=== PATIENT | female | born 1955 | race Caucasian/White ===

== ENCOUNTER 2019-08-09 00:29 | Outpatient (CLI) | payer OTHER, SELFPAY ==
[2019-08-09 18:10] LABS: SARS-CoV-2 RNA PCR Negative
== END 2019-08-09 00:30 | disposition home or self-care (01) ==
LOC: ANHCOVIDDT 00:29
PROVIDERS: PCP Family Medicine; Visit Provider Podiatrist Foot & Ankle Surgery
DX: Z01.812 Encounter for preprocedural laboratory examination (principal); Z20.828 Contact with and (suspected) exposure to other viral communicable diseases
CPT/HCPCS: 87635; C9803; U0003

== ENCOUNTER 2019-08-11 03:43 | Day surgery (SDC) | payer OTHER, SELFPAY ==
[2019-07-31 10:30] VITALS: BMI 22.8
--- NOTE | 2019-08-10 12:17 | WPDANESEPP ---
Anes - Eval Pre Procedure Procedure: Operation Date: 08/11/19 07:30 Proposed Procedures p Excision Willett's Neuroma Left Foot - Terrell Isaac JR, MD Date/Time: 08/10/19 12:17 Pre Op Diagnosis: Willett's Neuroma Left Foot Patient Data Age: 63 Gender: F Height: 1.73 m Weight: 68.3 kg Allergies Allergy/AdvReac Type Severity Reaction Status Date / Time HAZELNUTS Allergy Intermediate ITCHY Uncoded 07/31/19 10:30 THROAT Home Medications Medication Instructions Recorded Confirmed Type loratadine 10 mg tablet 10 mg PO DAILY #90 tablet 05/29/19 07/31/19 Rx amitriptyline 25 mg PO HS 07/31/19 07/31/19 History fluticasone propionate [Flonase 1 mcg INTRANASAL DAILY 07/31/19 07/31/19 History Allergy Relief] montelukast [Singulair] 10 mg PO DAILY 07/31/19 07/31/19 History pantoprazole [Protonix] 40 mg PO HS 07/31/19 07/31/19 History sumatriptan succinate [Imitrex] 100 mg PO DAILY 07/31/19 07/31/19 History Patient hx anesthesia problems: none Family hx anesthesia problems: none PMFSH Past Medical History Medical History (Updated 08/10/19 @ 12:19 by Pepe Mckeon CRNA) Alcohol use 1-2 drinks/week GERD (gastroesophageal reflux disease) Migraine Mitral valve prolapse Osteopenia Surgical History Surgical History History of hip replacement Family History Family History Mother Hypertension Family history of chronic obstructive pulmonary disease Family history of coronary artery disease Father Hypertension Family history of coronary artery disease Social History Social History Smoking status: Never smoker Alcohol intake: current Exam Day of Procedure 08/10/19 12:17
[2019-08-11] VITALS (8 sets, daily range): BP systolic 126–170; BP diastolic 54–80; PULSE 54–72; RESP 15–22; TEMP 36.9; O2SAT 92–100
--- NOTE | 2019-08-11 06:37 | WPDANESEPPF ---
Anes - Initial Pre Proc Eval Procedure: Operation Date: 08/11/19 07:30 Proposed Procedures p Excision Willett's Neuroma Left Foot - Terrell Isaac JR, MD Date/Time: 08/11/19 06:37 Surgeon: Terrell Isaac JR, MD Pre Op Diagnosis: Willett's Neuroma Left Foot Patient Data Age: 63 Gender: F Height: 1.73 m Weight: 68.1 kg Allergies Allergy/AdvReac Type Severity Reaction Status Date / Time HAZELNUTS Allergy Intermediate ITCHY Uncoded 07/31/19 10:30 THROAT Home Medications Medication Instructions Recorded Confirmed Type loratadine 10 mg tablet 10 mg PO DAILY #90 tablet 05/29/19 07/31/19 Rx amitriptyline 25 mg PO HS 07/31/19 07/31/19 History fluticasone propionate [Flonase 1 mcg INTRANASAL DAILY 07/31/19 07/31/19 History Allergy Relief] montelukast [Singulair] 10 mg PO DAILY 07/31/19 07/31/19 History pantoprazole [Protonix] 40 mg PO HS 07/31/19 07/31/19 History sumatriptan succinate [Imitrex] 100 mg PO DAILY 07/31/19 07/31/19 History Patient hx anesthesia problems: none Family hx anesthesia problems: none PMFSH Past Medical History Medical History (Updated 08/10/19 @ 12:19 by Pepe Mckeon CRNA) Alcohol use 1-2 drinks/week GERD (gastroesophageal reflux disease) Migraine Mitral valve prolapse Osteopenia Surgical History Surgical History History of hip replacement Family History Family History Mother Hypertension Family history of chronic obstructive pulmonary disease Family history of coronary artery disease Father Hypertension Family history of coronary artery disease Social History Social History Smoking status: Never smoker Alcohol intake: current Anes - Eval Final PreProcedure Day of Procedure 08/11/19 06:37 Patient weight: normal Heart: regular rate and rhythm Lungs: clear to auscultation and normal air movement Airway: Mallampati scale class 1 Neurological: alert and oriented Last oral intake: >/= 8 hours ASA classification: II Emergent: no Anesthetic plan: proceed Anesthesia type and monitoring: general GIVS and standard monitoring Informed Consent: The patient's anesthetic plan and its attendant risks and benefits were discussed with the patient/family/POA. Questions were solicited and answers provided to the satisfaction of the patient/family/POA.
[2019-08-11] MEDS: LACTATED RINGERS 1,000 ML 30 ML IV CONT ×2 (06:50→08:38)
--- NOTE | 2019-08-11 07:14 | WPDHPUPDATE1 ---
History and Physical Update Update Date/Time: 08/11/19 07:14 History and Physical has been reviewed, including an updated exam of the patient. There are NO changes in the patient's condition. Risks, benefits, and alternatives have been discussed and questions answered. Patient agrees to proceed with procedure.
[2019-08-11] MEDS: ceFAZolin 2 GM/D5W 50 ML 2 GM/50 ML BAG IVPB (07:22)
[2019-08-11] MEDS: LIDOCAINE HCL 2% LOCAL INJ 20 ML VIAL 10 ML INFILTRATE (07:47)
--- NOTE | 2019-08-11 08:13 | PM.OP ---
Procedure Note - Brief Procedure Note - Brief Date of procedure: 08/11/19 Pre-op diagnosis: Willett's Neuroma Left Foot Post-op diagnosis: same Procedure performed: Excision of Mortons Neuroma left foot Anesthesia: MAC and local Surgeon: Terrell Isaac JR, DPM Estimated blood loss (mL): 1 Complications: No immediate complications Condition: stable Disposition: same day
[2019-08-11] MEDS: KETOROLAC 30 MG/ML VIAL (*BKC) IV PUSH (08:34)
[2019-08-11] MEDS: HYDROMORPHONE HCL 1 MG/ML INJ 0.5 MG IV PUSH ×3 (08:36→08:42)
--- NOTE | 2019-08-11 15:25 | SUR.PHASEII ---
0855- DR. SINGER AND SHOSHANA HEATH RN IN OP RECOVERY ROOM TO ADMINISTER NERVE BLOCK. PATIENT TOLERATED WELL. IMPROVEMENT WITHIN MINUTES IN PAIN LEVEL
--- NOTE | 2019-08-11 15:30 | SUR.PHASEII ---
0915- PATIENT EXPRESSING THAT SHE DOES NOT HAVE ANY MEMORY OF COMING TO THE HOSPITAL FOR SURGERY THIS MORNING. OTHERWISE A&O X3. NO NEUROLOGICAL DEFICITS. DR. CHAVARRIA NOTIFIED. STATES DUE TO VERSED ADMINISTRATION FROM CRUDE TESTER. NO NEW ORDERS.
--- NOTE | 2019-08-11 16:48 | OP_ITS ---
DATE OF PROCEDURE: 08/11/2019 PREOPERATIVE DIAGNOSIS: Painful Willett's neuroma, left foot. POSTOPERATIVE DIAGNOSIS: Painful Willett's neuroma, left foot. PROCEDURES: Excision of Willett's neuroma, left foot. PATHOLOGY: Willett's neuroma sent for gross and histopathology. ANESTHESIA: MAC with local. HEMOSTASIS: Pneumatic ankle tourniquet at 250 mmHg. ESTIMATED BLOOD LOSS: Minimal. MATERIALS USED: 4-0 Vicryl and 4-0 Monocryl. INJECTABLES: 20 cc of 1:1 mixture of 2% lidocaine plain and 0.5% Marcaine plain injected preoperatively. COMPLICATIONS: None. PROCEDURE IN DETAIL: Under mild sedation, the patient was brought to the operating room and placed on the operating table in the supine position. Pneumatic ankle tourniquet was placed about the patient's left ankle. Following IV sedation, local anesthesia was obtained about the left foot utilizing 20 cc of 2% lidocaine plain and 0.5% Marcaine plain. The foot was then scrubbed, prepped, and draped in the usual aseptic manner. An Esmarch bandage was then used to examine the patient's left foot and pneumatic ankle tourniquet was inflated. Surgery began in the following manner. Attention was directed to the dorsal aspect of the third interspace of the left foot where a 3 cm linear longitudinal incision was made beginning distally at the webspace of the intermetatarsal area and extending proximally. Incision was deepened through the subcutaneous tissues using sharp and blunt dissection. All vital neurovascular structures and bleeders were cauterized and ligated as necessary. At this time, the dissection was continued deep down to the third interspace using blunt dissection down to the white neural mass of the common plantar nerve, which was initially identified beneath the intermetatarsal ligament. After initial identification, the hypertrophied soft tissue neural mass was followed distally to the point of bifurcation into the proper plantar digital nerves. The proper plantar digital nerves were tracked as far distal as possible and severed. The neural mass was then dissected as far proximal as possible, from its soft tissue surroundings and severed. At this time, the entire soft neural mass was resected and passed from the operative field in toto. The wound was inspected for any remaining hypertrophied neural tissue and none was found. The wound site was then flushed with copious amounts of sterile saline. The neural mass was noted to be approximately 4 cm in length and approximately 4 mm in width. The subcutaneous tissues were reapproximated and coapted utilizing 4-0 Vicryl. The skin was reapproximated and coapted utilizing 4-0 Monocryl and a running subcuticular suture fashion technique. Upon completion of the procedure, the incision was dressed with Steri-Strips, Adaptic, 4x4s, Kerlix, and Coban. The pneumatic ankle tourniquet was then deflated and prompt hyperemic response was noted to all digits of the left foot. A CAM walker boot was then applied. The patient did very well with the procedure and anesthesia. She was transferred to the recovery room. Vital signs stable and vascular status intact to all toes of the left foot. Following period of postoperative monitoring, the patient was discharged home on the following written and oral postoperative instructions: 1. Keep the dressing clean, dry, and intact. 2. Avoid excessive ambulation. 3. Ice and elevate the left foot when at rest. 4. Wear CAM walker boot at all times with ambulating. 5. Contact Dr. Isaac for all postop care and if any problems should arise. 6. Prescriptions were written for Percocet 5/325 dispensed 40 to be taken one p.o. q.4-6 hours as needed for severe pain. Larry I MT: Gail
== END 2019-08-11 09:55 | disposition home or self-care (01) ==
PROVIDERS: PCP Family Medicine; Visit Provider Podiatrist Foot & Ankle Surgery
PROC: (CPT 28080; principal; 2019-08-11 07:30)
DX: G57.62 Lesion of plantar nerve, left lower limb (principal); K21.9 Gastro-esophageal reflux disease without esophagitis; I34.1 Nonrheumatic mitral (valve) prolapse
CPT/HCPCS: 28080; 88304; J0690; J1170; J1885; J2250; J2405; J2704; J3010; J7120

== ENCOUNTER 2019-11-29 10:16 | Outpatient (CLI) | payer MEDICARE, OTHER, SELFPAY ==
--- NOTE | ~2019-11-29 | MM_ITS ---
EXAMINATION: MM screening [facility] BI w steven HISTORY: Screening TECHNIQUE: Craniocaudal and mediolateral oblique 3-D tomosynthesis images were obtained and synthetic 2-D images were generated. CAD analysis was submitted and interpreted. COMPARISON: Comparison to multiple prior studies sequentially, with oldest reviewed study dated 10/13. BREAST PARENCHYMAL COMPOSITION: The breasts are heterogeneously dense, which may obscure small masses . FINDINGS: There is developing asymmetry in the lower inner quadrant of the left breast. The right marybeth ast is stable without evidence for malignancy. IMPRESSION: 1. Developing left breast asymmetry, lower inner quadrant. 2. Additional mammographic views and possible breast ultrasound are recommended. BI-RADS Category 0: Incomplete: Needs additional imaging evaluation. Reviewed, dictated and finalized at location A. IMPRESSION: 1. Developing left breast asymmetry, lower inner quadrant. 2. Additional mammographic views and possible breast ultrasound are recommended . BI-RADS Category 0: Incomplete: Needs additional imaging evaluation.
== END 2019-11-29 10:17 | disposition home or self-care (01) ==
PROVIDERS: PCP Family Medicine; Visit Provider Family Medicine
DX: Z12.31 Encounter for screening mammogram for malignant neoplasm of breast (principal); R92.8 Other abnormal and inconclusive findings on diagnostic imaging of breast
CPT/HCPCS: 77063; 77067

== ENCOUNTER 2019-12-07 13:41 | Outpatient (CLI) | payer MEDICARE, OTHER, SELFPAY ==
--- NOTE | ~2019-12-07 | MMUS_ITS ---
EXAMINATION: MM diagnostic mammo unilat LT, US breast LT complete HISTORY: Follow-up left breast asymmetry TECHNIQUE: Additional 3-D tomosynthesis images of the left breast were performed and synthetic 2-D im ages were generated. CAD analysis was submitted and interpreted. High resolution left breast ultrasou nd was performed. COMPARISON: Comparison to multiple prior studies sequentially, with oldest reviewed study dated 10/15. BREAST PARENCHYMAL COMPOSITION: The breasts are heterogenously dense, which may obscure small masses FINDINGS: MAMMOGRAPHIC FINDINGS: There are no suspicious masses, calcifications or architectural distortion in the left breast. ULTRASOUND: Complete left breast ultrasound is unremarkable without focal solid or cystic mass. IMPRESSION: 1. No evidence for malignancy in the left breast. 2. Routine yearly screening mammogram and regular clinical breast examination are recommended. BI-RADS Category 1: Negative Reviewed, dictated and finalized at location A. IMPRESSION: 1. No evidence for malignancy in the left breast. 2. Routine yearly screening mammogram and regular clinical breast examination a re recommended. BI-RADS Category 1: Negative
== END 2019-12-07 13:42 | disposition home or self-care (01) ==
PROVIDERS: PCP Family Medicine; Visit Provider Family Medicine
DX: R92.8 Other abnormal and inconclusive findings on diagnostic imaging of breast (principal)
CPT/HCPCS: 76641; 77065

== ENCOUNTER 2020-03-12 06:55 | Outpatient (NON) | payer MEDICARE, OTHER, SELFPAY ==
[2020-03-12 22:34] LABS: SARS-CoV-2 RNA PCR Positive
== END 2020-03-12 06:56 ==
PROVIDERS: Nurse Practitioner Family; PCP Family Medicine; Visit Provider Family Medicine
DX: R05 Cough (principal); U07.1 COVID-19
CPT/HCPCS: C9803; U0003; U0005

== ENCOUNTER 2020-09-30 10:43 | Outpatient (CLI) | payer MEDICARE, OTHER, SELFPAY | END 2020-09-30 10:44 | disposition home or self-care (01) | LOC: ANHAUDASC 10:43 | PROVIDERS: PCP Family Medicine; Visit Provider Family Medicine | DX: H90.3 Sensorineural hearing loss, bilateral (principal) | CPT/HCPCS: 92557; 92567 ==

== ENCOUNTER 2020-12-09 07:54 | Outpatient (CLI) | payer SELFPAY | END 2020-12-09 07:55 | disposition home or self-care (01) | PROVIDERS: PCP Family Medicine; Visit Provider Family Medicine | DX: Z46.1 Encounter for fitting and adjustment of hearing aid (principal) | CPT/HCPCS: 99199 ==

== ENCOUNTER 2021-01-08 13:00 | Outpatient (RCR) | payer MEDICARE, OTHER, SELFPAY | END 2021-03-19 23:59 | disposition home or self-care (01) | LOC: ANHAUDASC 13:00 | PROVIDERS: PCP Family Medicine; Visit Provider Family Medicine | DX: Z46.1 Encounter for fitting and adjustment of hearing aid (principal) | CPT/HCPCS: 99199; V5261 ==

== ENCOUNTER 2021-01-09 07:38 | Outpatient (CLI) | payer MEDICARE, OTHER, SELFPAY ==
--- NOTE | ~2021-01-09 | DEXA_ITS ---
Bone Density Report Name: Sally Seymour Age: 65 Sex: Female Ethnicity: White Date of : 1955 Indication: osteopenia; monitoring treatment; height loss; postmenopausal Referring Provider: Gorge Siddiqui Study: Bone densitometry was performed. Exam Date: January 09, 2021 Accession number: [id number] Bone Density: Region BMD T-score Z-score Classification AP Spine (L1-L4) 0.920 -1.2 0.7 Osteopenia Femoral Neck (Right) 0.622 -2.0 -0.5 Osteopenia Total Hip (Right) 0.772 -1.4 -0.1 Osteopenia World Health Organization criteria for BMD impression classify patients as: Normal (T-score at or above -1.0), Osteopenia (T-score between -1.0 and -2.5), or Osteoporosis (T-score at or below -2.5). 10-year Fracture Risk: FRAX not reported because: Treated for osteoporosis Previous Exams: Region Exam Age BMD T-score BMD Change BMD Change Date g/cm2 vs Baseline vs Previous AP Spine(L1-L4) 01/09/2021 65 0.920 -1.2 -0.055(-5.6%)# -0.006(-0.6%) 11/10/2018 63 0.925 -1.1 -0.049(-5.1%)# -0.034(-3.5%)* 11/09/2016 61 0.959 -0.8 -0.016(-1.6%)# -0.006(-0.6%)# 10/15/2014 59 0.964 -0.8 -0.010(-1.0%)# -0.010(-1.0%)# 10/12/2012 57 0.975 -0.7 Total Hip(Right) 01/09/2021 65 0.772 -1.4 -0.064(-7.7%)# -0.021(-2.6%) 11/10/2018 63 0.792 -1.2 -0.044(-5.2%)# -0.031(-3.8%)* 11/09/2016 61 0.823 -1.0 -0.012(-1.5%)# -0.011(-1.4%) 10/15/2014 59 0.835 -0.9 -0.001(-0.1%)# -0.001(-0.1%)# 10/12/2012 57 0.836 -0.9 *Denotes significance at 95% confidence level, LSC for AP Spine = 0.022 g/cm2, LSC for Total Hip = 0.027 g/cm2 Clinical Information Provided by Patient: Is being treated for osteoporosis Has used the following medications: Fosamax (i.e. alendronate), Vitamin D, Calcium Patient maximum height was 69 Menopause Age: 52 Drinks caffeinated beverages Onset of menses at age 12 Number of children 0 Impression: The patient has low bone mass, based on the Right Femoral Neck T-score. No significant bone loss was observed. Discussion: PATIENT UNDER TREATMENT WITH NO SIGNIFICANT BMD LOSS SINCE LAST EXAM. In an untreated patient, BMD typically declines with age. A lack of decline or gain is usually a sign that treatment is efficacious and fracture risk is reduced. It is important to ask patients whether they are taking their medications and to encourage continued and appropriate compliance with their osteoporosis therapies to reduce fracture risk. It is also important to review their risk factors and
--- NOTE | ~2021-01-09 | MM_ITS ---
EXAMINATION: MM screening [facility] BI w steven HISTORY: Screening mammogram TECHNIQUE: Craniocaudal and mediolateral oblique 3-D tomosynthesis images were obtained and synthetic 2-D images were generated. CAD analysis was submitted and interpreted. COMPARISON: 12/07/2019, 11/29/2019, 11/10/2018 BREAST PARENCHYMAL COMPOSITION: The breasts are extremely dense, which lowers the sensitivity of mamm ography. FINDINGS: There is no evidence of suspicious mass, calcification, or architectural distortion to sugg est malignancy in either breast. There has been no suspicious interval change. IMPRESSION: 1. No mammographic evidence of malignancy. 2. Recommend routine screening mammography in one year. BI-RADS Category 1: Negative Reviewed, dictated and finalized at location A. [employer]
== END 2021-01-09 07:39 | disposition home or self-care (01) ==
LOC: ANHIMG 07:40
PROVIDERS: PCP Family Medicine; Visit Provider Family Medicine
DX: Z12.31 Encounter for screening mammogram for malignant neoplasm of breast (principal); Z78.0 Asymptomatic menopausal state
CPT/HCPCS: 77063; 77067; 77080

== ENCOUNTER 2021-01-30 09:10 | Emergency (ER) | payer MEDICARE, OTHER, SELFPAY ==
[2021-01-30 09:19] VITALS: PULSE 63; RESP 15; O2SAT 99
[2021-01-30 09:30] VITALS: BP 174/76; PULSE 64; PULSE 68; RESP 14; RESP 20; TEMP 37.1; O2SAT 99
[2021-01-30 09:31] VITALS: BP 182/90; PULSE 62; RESP 20; O2SAT 98
--- NOTE | 2021-01-30 09:48 | ED.GENADULT ---
HPI - General Adult General Chief complaint: GI Bleed Stated complaint: Rectal bleeding. Time Seen by Provider: 01/30/21 09:21 Source: patient Mode of arrival: ambulatory Limitations: no limitations History of Present Illness HPI narrative: Patient is 65-year-old female with chief complaint of bright red rectal bleeding that she noticed in the toilet and when wiping after having a bowel movement this morning. Patient states that she has had these episodes in the past after straining while having a bowel movement but she has been taking Metamucil and she did not feel as if she was straining that much on this morning. Patient states that she noticed it when she was wiping and even saw a few very small blood clots. She denies any pain to her rectum. She denies any weakness, shortness of breath, chest pain, abdominal pain, nausea, vomiting, fever, chills, diarrhea. She reports that she believes she has had hemorrhoids in the past but is not sure she has been currently. Patient reports that she takes Metamucil daily. Patient reports that she has had multiple urination since the event and has wiped and not noted any blood. Patient reports that she has not had a colonoscopy for over 5 years. She reports at the time of her last colonoscopy she did not have any abnormal findings. Patient denies any complaints or feelings at this time. Related Data Allergies Allergy/AdvReac Type Severity Reaction Status Date / Time HAZELNUTS Allergy Intermediate ITCHY Uncoded 12/18/20 13:46 THROAT Review of Systems Review of Systems: CONSTITUTIONAL: Denies fever, chills, or sweats. EYES: Denies visual changes, redness, or discharge. ENT: Denies rhinorrhea, congestion, sore throat, or otalgia. CARDIOVASCULAR: Denies chest pain, palpitations, or edema. RESPIRATORY: Denies cough or dyspnea. GASTROINTESTINAL: Reports resolved rectal bleeding denies abdominal pain, nausea, vomiting, or diarrhea. GENITOURINARY: Denies dysuria or hematuria. SKIN: Denies rash or itching. MUSCULOSKELETAL: Denies back pain, joint pain, or myalgia. NEUROLOGIC: Denies headache, numbness, dizziness, or weakness. PSYCHIATRIC: Denies anxiety or depression. [facility] Past Medical History Medical History Alcohol use 1-2 drinks/week GERD (gastroesophageal reflux disease) Migraine Mitral valve prolapse Osteopenia Plantar fasciitis Weight gain Surgical History Surgical History History of foot surgery Willett's neuroma removal, Isaac History of hip replacement Family History Family History Mother Hypertension Family history of chronic obstructive pulmonary disease Family history of coronary artery disease Father Hypertension Family history of coronary artery disease Social History Social History Smoking status: Never smoker Second hand tobacco smoke exposure: No Alcohol intake: current Drinks per week: 7 Substance use: never Substance use type: does not use Gender identity (if verbalized by the patient): Female Sexual Orientation (if Verbalized by the Patient): Straight or Heterosexual Exam Narrative: GENERAL: Well-appearing, well-nourished, and in no acute distress. HEAD: Normocephalic, atraumatic. EYES: PERRLA and EOMI. CHEST: Clear to auscultation. No respiratory distress. No wheezes rales or rhonchi HEART: Regular rate and rhythm. No murmur heard. Normal peripheral pulses. ABDOMEN: Soft, nontender, nondistended, normal active bowel sounds. RECTAL: Small tear w/irritation at 10 o'clock. No hemorrhoids. No gross blood noted. Hemoccult negative. EXTREMITIES: Normal range of motion. No edema. SKIN: Warm, dry, no rash. NEURO: No focal deficits. Alert and oriented x3. PSYCH: Normal mood and affect. Course Vital Signs Kasia
[2021-01-30 09:52] VITALS: PULSE 57; RESP 20; O2SAT 97
[2021-01-30 10:00] VITALS: PULSE 57; RESP 14; O2SAT 98
[2021-01-30 10:01] VITALS: BP 139/68; PULSE 58; RESP 13; O2SAT 98
== END 2021-01-30 10:35 | disposition home or self-care (01) ==
PROVIDERS: Emergency Provider Emergency Medicine; PCP Family Medicine
DX: K62.5 Hemorrhage of anus and rectum (principal)
CPT/HCPCS: 99281

== ENCOUNTER 2021-01-31 12:20 | Outpatient (CLI) | payer MEDICARE, OTHER, SELFPAY ==
[2021-01-31 13:15] LABS: Basophils Absolute Auto 0.1 K/mm3 (0.0-0.1); Basophils Percent Auto 0.7 % (0.2-1.2); Eosinophils Absolute Auto 0.1 K/mm3 (0-0.3); Eosinophils Percent Auto 1.5 % (0-4.4); Hematocrit 37.7 % (37.0-47.0); Hemoglobin 12.6 g/dL (12.0-15.0); Immature Granulocyte Absolute 0.02 K/mm3 (0.00-0.031); Immature Granulocyte Percent A 0.3 % (0-0.5); Lymphocytes Percent Auto 19.3 % (18.3-44.2); Mean Corpuscular HGB Conc 33.4 g/dl (32-36); Mean Corpuscular Hemoglobin 32.7 pg (26-34); Mean Corpuscular Volume 97.9 fl (80-100); Mean Platelet Volume 9.6 fl (7.4-10.4); Monocytes Absolute Auto 0.5 K/mm3 (0.1-0.6); Monocytes Percent Auto 7.9 % (2.6-8.5); Neutrophils Absolute Auto 4.7 K/mm3 (1.3-6.7); Neutrophils Percent Auto 70.3 % (45.5-73.1); Platelet Count Result 227 k/mm3 (150-375); Red Blood Count 3.85 M/mm3 (4.2-5.4); Red Cell Distribution Width 13.2 % (11.5-14.5); White Blood Count 6.7 K/mm3 (4.5-10.0)
== END 2021-01-31 12:21 | disposition home or self-care (01) ==
LOC: ANHLAB 12:24
PROVIDERS: PCP Family Medicine; Visit Provider Family Medicine
DX: K62.5 Hemorrhage of anus and rectum (principal)
CPT/HCPCS: 36415; 85025

== ENCOUNTER 2021-02-26 01:21 | Day surgery (SDC) | payer MEDICARE, OTHER, SELFPAY ==
[2021-02-06 14:30] VITALS: BMI 23.6
--- NOTE | ~2021-02-26 | XR_ITS ---
XR abdomen obstructive series DATE: 02/26/2021 13:19 INDICATION: Perforation TECHNIQUE: Portable supine and upright AP views COMPARISON: None FINDINGS: Status post left total hip arthroplasty. Nonspecific bowel gas pattern. There is no evidence of intraperitoneal free air. The psoas shadows are intact. No visceromegaly is evident. Included lower lung zones are clear. Normal heart size. No pleural effusion. IMPRESSION: Nonspecific abdomen; no evidence of pneumoperitoneum Reviewed, dictated and finalized at [facility]. Reviewed, dictated and finalized at location A. FORM ARCHITECT
[2021-02-26 11:16] VITALS: BP 147/63; PULSE 58; RESP 18; TEMP 36.4; O2SAT 100
--- NOTE | 2021-02-26 11:32 | WPDANESEPPF ---
Anes - Initial Pre Proc Eval Procedure: Operation Date: 02/26/21 12:30 Proposed Procedures p Colonoscopy - Francois Orozco MD Date/Time: 02/26/21 11:32 Surgeon: Francois Orozco MD Pre Op Diagnosis: Rectal bleeding Patient Data Age: 65 Gender: F Height: 1.73 m Weight: 65.4 kg Last Vital Signs Temp 97.6 F 02/26/21 11:16 Pulse 58 L 02/26/21 11:16 Resp 18 02/26/21 11:16 BP 147/63 H 02/26/21 11:16 Pulse Ox 100 02/26/21 11:16 Allergies Allergy/AdvReac Type Severity Reaction Status Date / Time HAZELNUTS Allergy Intermediate ITCHY Uncoded 02/26/21 11:13 THROAT Home Medications Medication Instructions Recorded Confirmed Type amitriptyline 25 mg tablet 25 mg PO HS #90 tablet 11/11/20 02/06/21 Rx baclofen 5 mg tablet 5 mg PO QHS #30 tablet 11/11/20 02/06/21 Rx loratadine 10 mg tablet 10 mg PO DAILY #90 tablet 11/11/20 02/06/21 Rx montelukast 10 mg tablet 10 mg PO DAILY #90 tablet 11/11/20 02/06/21 Rx pantoprazole 40 mg tablet,delayed 40 mg PO HS #90 tablet 11/11/20 02/06/21 Rx release scopolamine base 1 mg over 3 days 1 patch TRANSDERMAL Q3D PRN #5 ea 11/11/20 02/06/21 Rx transdermal patch sumatriptan succinate 100 mg tablet 100 mg PO DAILY #30 tablet 11/11/20 02/06/21 Rx conjugated estrogens 0.625 mg/gram 0.625 mg VAGINAL 2XW #30 g 11/13/20 02/06/21 Rx vaginal cream fluticasone propionate 50 1 spray INTRANASAL DAILY #16 g 11/13/20 02/06/21 Rx mcg/actuation nasal spray,suspension Patient hx anesthesia problems: none Family hx anesthesia problems: none Results Review: All pre-operative results and documents have been reviewed as part of the pre-operative evaluation. [facility] Past Medical History Medical History Alcohol use 1-2 drinks/week GERD (gastroesophageal reflux disease) Migraine Mitral valve prolapse Osteopenia Plantar fasciitis Weight gain Surgical History Surgical History History of foot surgery Willett's neuroma removal, Isaac History of hip replacement Family History Family History Mother Hypertension Family history of chronic obstructive pulmonary disease Family history of coronary artery disease Father Hypertension Family history of coronary artery disease Social History Social History Smoking status: Former smoker Second hand tobacco smoke exposure: No Alcohol intake: current Drinks per week: 12 Substance use: never Substance use type: does not use Living arrangements: with family Gender identity (if verbalized by the patient): Female Sexual Orientation (if Verbalized by the Patient): Straight or Heterosexual Spiritual care concerns: No Anes - Eval Final PreProcedure Day of Procedure 02/26/21 11:32 Patient weight: normal Heart: regular rate and rhythm Lungs: clear to auscultation Airway: Mallampati scale class II Neurological: alert and oriented Last oral intake: >/= 8 hours ASA classification: II Emergent: no Anesthetic plan: proceed Anesthesia type and monitoring: general GIVS and standard monitoring Results Review: All pre-operative results and documents have been reviewed as part of the pre-operative evaluation. Informed Consent: The patient's anesthetic plan and its attendant risks and benefits were discussed with the patient/family/POA. Questions were solicited and answers provided to the satisfaction of the patient/family/POA.
[2021-02-26] MEDS: LACTATED RINGERS 1,000 ML 150 ML IV CONT (11:33)
--- NOTE | 2021-02-26 11:53 | PM.HPGS ---
History of Present Illness History of Present Illness Consent: Risks, benefits, and alternatives have been discussed and questions answered. Patient agrees to proceed with procedure. Chief complaint: Rectal bleeding Narrative: Sally Seymour is a 65 year old female Referred for investigation of rectal bleeding for the past few months she has seen red blood her stools from time to time. She has not been necessarily straining or constipated lately. She denies rectal pain or abdominal pain. Review of Systems Review of Systems: All systems reviewed & are unremarkable except as noted in HPI and below PMFSH Past Medical History Medical History Alcohol use 1-2 drinks/week GERD (gastroesophageal reflux disease) Migraine Mitral valve prolapse Osteopenia Plantar fasciitis Weight gain Surgical History Surgical History History of foot surgery Willett's neuroma removal, 2019, Isaac History of hip replacement Family History Family History Mother Hypertension Family history of chronic obstructive pulmonary disease Family history of coronary artery disease Father Hypertension Family history of coronary artery disease Social History Social History Smoking status: Former smoker Second hand tobacco smoke exposure: No Alcohol intake: current Drinks per week: 12 Substance use: never Substance use type: does not use Living arrangements: with family Gender identity (if verbalized by the patient): Female Sexual Orientation (if Verbalized by the Patient): Straight or Heterosexual Spiritual care concerns: No Meds Home Medications and Allergies Home Medications Medication Instructions Recorded Confirmed Type amitriptyline 25 mg tablet 25 mg PO HS #90 tablet 11/11/20 02/06/21 Rx baclofen 5 mg tablet 5 mg PO QHS #30 tablet 11/11/20 02/06/21 Rx loratadine 10 mg tablet 10 mg PO DAILY #90 tablet 11/11/20 02/06/21 Rx montelukast 10 mg tablet 10 mg PO DAILY #90 tablet 11/11/20 02/06/21 Rx pantoprazole 40 mg tablet,delayed 40 mg PO HS #90 tablet 11/11/20 02/06/21 Rx release scopolamine base 1 mg over 3 days 1 patch TRANSDERMAL Q3D PRN #5 ea 11/11/20 02/06/21 Rx transdermal patch sumatriptan succinate 100 mg tablet 100 mg PO DAILY #30 tablet 11/11/20 02/06/21 Rx conjugated estrogens 0.625 mg/gram 0.625 mg VAGINAL 2XW #30 g 11/13/20 02/06/21 Rx vaginal cream fluticasone propionate 50 1 spray INTRANASAL DAILY #16 g 11/13/20 02/06/21 Rx mcg/actuation nasal spray,suspension Allergies Allergy/AdvReac Type Severity Reaction Status Date / Time HAZELNUTS Allergy Intermediate ITCHY Uncoded 02/26/21 11:13 THROAT Vital Signs Vital Signs - 24 hr 02/26/21 11:16 Temperature 36.4 C Pulse Rate 58 L Respiratory Rate 18 Blood Pressure 147/63 H Pulse Oximetry 100 Exam Resp: Auscultation: clear to auscultation bilaterally Cardio: Rate: regular rate Rhythm: regular rhythm GI: GI Palp: Yes Soft to palpation and No Tenderness to palpation present (GI) Assessment and Plan Assessment and plan (1) Blood in stool: Code(s): K92.1 - Melena Status: Acute Assessment and Plan: Colonoscopy with possible biopsy or polypectomy or cautery or injection of substances.
[2021-02-26 12:22] VITALS: BP 141/74; PULSE 59; RESP 18; O2SAT 99
[2021-02-26 12:32] VITALS: BP 149/76; PULSE 50; RESP 15; O2SAT 100
[2021-02-26 12:42] VITALS: BP 150/75; PULSE 51; RESP 16; O2SAT 100
[2021-02-26] MEDS: ONDANSETRON HCL ODT 4 MG TABLET PO (13:09)
[2021-02-26 13:10] VITALS: BP 150/72; PULSE 58; RESP 24; O2SAT 97
[2021-02-26 13:20] VITALS: BP 135/67; PULSE 56; RESP 21; O2SAT 100
--- NOTE | 2021-02-26 13:49 | SUR.PHASEII ---
DR MATA NOTIFIED OF ABD OBSTRUCTIVE SERIES, NEW ORDERS FOR PT TO GO HOME EAT LIGHT MEALS TODAY
== END 2021-02-26 13:54 | disposition home or self-care (01) ==
PROVIDERS: PCP Family Medicine; Visit Provider Internal Medicine Gastroenterology
PROC: 0DJD8ZZ Inspection of Lower Intestinal Tract, Via Natural or Artificial Opening Endoscopic (ICD-10-PCS; CPT 45378; principal; 2021-02-26 12:30)
DX: K92.1 Melena (principal); K64.8 Other hemorrhoids; K21.9 Gastro-esophageal reflux disease without esophagitis; I34.1 Nonrheumatic mitral (valve) prolapse; Z87.891 Personal history of nicotine dependence
CPT/HCPCS: 45378; 74019; A9270; J2704; J7120

== ENCOUNTER 2021-09-08 13:00 | Outpatient (RCR) | payer MEDICARE, OTHER, SELFPAY | END 2021-09-23 23:59 | disposition home or self-care (01) | LOC: ANHAUDASC 13:00 | PROVIDERS: PCP Family Medicine; Visit Provider Family Medicine | DX: Z46.1 Encounter for fitting and adjustment of hearing aid (principal) | CPT/HCPCS: 99199 ==

== ENCOUNTER 2021-10-29 16:06 | Emergency (ER) | payer MEDICARE, OTHER, SELFPAY ==
[2021-10-29] VITALS (10 sets, daily range): BP systolic 122–160; BP diastolic 60–76; PULSE 67–73; RESP 11–22; TEMP 36.3; O2SAT 97–100
--- NOTE | ~2021-10-29 | XR_ITS ---
EXAMINATION: XR chest 2V Exam Date/Time: 10/29/2021 17:15 CDT HISTORY: SOB, REACTION TO FLU SHOT, HX MITRAL VALVE PROLAPSE Comparison: 03/12/2016. RESULT: Lines, tubes, and devices: None. Lungs and pleura: Clear. Cardiomediastinal silhouette: Stable. Other: No acute osseous or upper abdominal finding. IMPRESSION: No acute cardiopulmonary process. Reviewed, dictated and finalized at location K.
--- NOTE | 2021-10-29 17:16 | ECG_ITS ---
Measurements Intervals [place] Rate: 64 P: 50 WA: 152 QRS: 21 QRSD: 83 T: 53 QT: 410 QTc: 424 Interpretive Statements SINUS RHYTHM NORMAL ECG NO PREVIOUS ECG AVAILABLE FOR COMPARISON Electronically Signed On 10-29-2021 19:23:13 CDT by Jack Elizabeth D.O.
[2021-10-29 17:39] LABS: Basophils Percent Auto 0.3 % (0.2-1.2); Eosinophils Percent Auto 0.2 % (0-4.4); Hematocrit 37.5 % (37.0-47.0); Hemoglobin 12.6 g/dL (12.0-15.0); Immature Granulocyte Absolute 0.04 K/mm3 (0.00-0.031); Immature Granulocyte Percent A 0.4 % (0-0.5); Lymphocytes Absolute Auto 0.65 K/mm3 (0.9-3.2); Lymphocytes Percent Auto 6.6 % (18.3-44.2); Mean Corpuscular HGB Conc 33.6 g/dl (32-36); Mean Corpuscular Hemoglobin 32.1 pg (26-34); Mean Corpuscular Volume 95.4 fl (80-100); Mean Platelet Volume 8.7 fl (7.4-10.4); Monocytes Absolute Auto 0.4 K/mm3 (0.1-0.6); Monocytes Percent Auto 3.8 % (2.6-8.5); Neutrophils Absolute Auto 8.8 K/mm3 (1.3-6.7); Neutrophils Percent Auto 88.7 % (45.5-73.1); Platelet Count Result 210 k/mm3 (150-375); Red Blood Count 3.93 M/mm3 (4.2-5.4); Red Cell Distribution Width 13.3 % (11.5-14.5); White Blood Count 9.9 K/mm3 (4.5-10.0)
--- NOTE | 2021-10-29 17:46 | ED.ALLEREA ---
HPI - Allergic Reaction General Chief complaint: Allergic Reaction <Deepthi Gonzalez PA-C - Last Filed: 10/29/21 19:24> Stated complaint: allergic reaction to flu vaccine, had epi at pharm <Deepthi Gonzalez PA-C - Last Filed: 10/29/21 19:24> Time Seen by Provider: 10/29/21 17:15 <Deepthi Gonzalez PA-C - Last Filed: 10/29/21 19:24> Source: patient <LAM Johnson Last Filed: 10/29/21 19:24> Mode of arrival: ambulatory <LAM Johnson Last Filed: 10/29/21 19:24> Limitations: no limitations <Deepthi Gonzalez PA-C - Last Filed: 10/29/21 19:24> History of Present Illness HPI narrative: This is a 66 year old female that presents to the ER for allergic reaction. Reports she had her influenza vaccine this afternoon around 2:30, and shortly after started to develop shortness of breath and chest tightness. She was given a dose of Epi. She was evaluated by EMS and refused transport to the ER. Reports after she got home she started to feel generally ill with chills and shakiness. She has not ever had a reaction to the vaccine and receives them yearly. Denies any current chest pain or shortness of breath. <Deepthi Gonzalez PA-C - Last Filed: 10/29/21 19:24> Related Data Home medications: Home Medications Medication Instructions Recorded Confirmed amitriptyline 25 mg tablet mg 10/29/21 conjugated estrogens 0.625 mg/gram 10/29/21 vaginal cream (Premarin) fluticasone propionate 50 intranasal 10/29/21 mcg/actuation nasal spray,suspension loratadine 10 mg tablet mg 10/29/21 montelukast 10 mg tablet mg 10/29/21 pantoprazole 40 mg tablet,delayed mg PO 10/29/21 release <LAM Johnson Last Filed: 10/29/21 19:24> Allergies/adverse reactions: Allergies Allergy/AdvReac Type Severity Reaction Status Date / Time HAZELNUTS Allergy Intermediate ITCHY Uncoded 10/31/21 09:54 THROAT <Deepthi Gonzalez PA-C - Last Filed: 10/29/21 19:24> Review of Systems Review of Systems: CONSTITUTIONAL: Denies fever CARDIOVASCULAR: Denies chest pain RESPIRATORY: Denies dyspnea. GASTROINTESTINAL: Denies vomiting SKIN: Denies rash or itching. <Deepthi Gonzalez PA-C - Last Filed: 10/29/21 19:24> All systems reviewed & are unremarkable except as noted in HPI and below <Deepthi Gonzalez PA-C - Last Filed: 10/29/21 19:24> [facility] Past Medical History Medical History: Medical History Alcohol use 1-2 drinks/week GERD (gastroesophageal reflux disease) Migraine Mitral valve prolapse Osteopenia Plantar fasciitis Weight gain <Deepthi Gonzalez PA-C - Last Filed: 10/29/21 19:24> Surgical History Surgical History: Surgical History History of foot surgery Willett's neuroma removal, 2019, Isaac History of hip replacement <Deepthi Gonzalez PA-C - Last Filed: 10/29/21 19:24> Family History Family History: Family History Mother Hypertension Family history of chronic obstructive pulmonary disease Family history of coronary artery disease Father Hypertension Family history of coronary artery disease <Deepthi Gonzalez PA-C - Last Filed: 10/29/21 19:24> Social History Social History: Social History Smoking status: Former smoker Second hand tobacco smoke exposure: No Alcohol intake: current Drinks per week: 12 Substance use: never Substance use type: does not use Gender identity (if verbalized by the patient): Female Sexual Orientation (if Verbalized by the Patient): Straight or Heterosexual Spiritual care concerns: No <Deepthi Gonzalez PA-C - Last Filed: 10/29/21 19:24> Exam Narrative: GENERAL: Well-appearing, well-nourished, and in no acute distress. HEAD: Normocephali
[2021-10-29 17:48] LABS: Alanine Aminotransferase 19 U/L (6-35); Albumin Level 4.6 g/dL (3.5-5.1); Alkaline Phosphatase 84 U/L (38-126); Anion Gap 11 mmol/L (8-16); Aspartate Amino Transferase 34 U/L (14-36); Bilirubin,Total 0.7 mg/dL (0.2-1.3); Blood Urea Nitrogen 15 mg/dL (7-17); Calcium 8.9 mg/dL (8.4-10.2); Carbon Dioxide 27 mmol/L (22-30); Chloride 98 mmol/L (98-107); Estimated CRCL calculation 66 ml/min; Estimated Glomerular Filt Rate > 60; Glucose 87 mg/dL (65-110); Lipase 91 U/L (23-300); Sodium 136 mmol/L (137-145)
[2021-10-29 17:52] LABS: Partial Thromboplastin Time 24.8 SECONDS (22.3-36.8); Prothrombin Time 12.8 Seconds (11.1-14.7)
[2021-10-29 18:00] LABS: Troponin I < 0.012 ng/mL (0.000-0.034)
== END 2021-10-29 19:48 | disposition home or self-care (01) ==
PROVIDERS: Physician Assistant; Emergency Provider Emergency Medicine; PCP Family Medicine
DX: T78.40XA Allergy, unspecified, initial encounter (principal); K21.9 Gastro-esophageal reflux disease without esophagitis; I34.1 Nonrheumatic mitral (valve) prolapse; M85.80 Other specified disorders of bone density and structure, unspecified site; Z87.891 Personal history of nicotine dependence; R06.02 Shortness of breath
CPT/HCPCS: 36415; 71046; 80053; 83690; 84484; 85025; 85610; 85730; 93005; 99284

== ENCOUNTER → 2022-01-12 10:41 | Outpatient (CLI) | payer MEDICARE, OTHER, SELFPAY ==
--- NOTE | ~2022-01-12 | MM_ITS ---
EXAMINATION: MM screening lizzie BI w steven HISTORY: Screening mammogram TECHNIQUE: Craniocaudal and mediolateral oblique 3-D tomosynthesis images were obtained and synthetic 2-D images were generated. CAD analysis was submitted and interpreted. COMPARISON: bilateral screening mammogram 12/07/2019 diagnostic left mammogram and complete left breast ultrasound 11/29/2019, 11/10/2018 bilateral screening mammogram examinations BREAST PARENCHYMAL COMPOSITION: The breasts are extremely dense, which lowers the sensitivity of mamm ography. FINDINGS: There is no evidence of suspicious mass, calcification, or architectural distortion to sugg est malignancy in either breast. There has been no suspicious interval change. IMPRESSION: 1. No mammographic evidence of malignancy. 2. Recommend routine screening mammography in one year. BI-RADS Category 1: Negative Reviewed, dictated and finalized at location A. ESTATE REPRESENTATIVE
== END ==
PROVIDERS: PCP Family Medicine; Visit Provider Family Medicine
DX: Z12.31 Encounter for screening mammogram for malignant neoplasm of breast (principal)
CPT/HCPCS: 77063; 77067

== ENCOUNTER 2022-02-24 13:30 | Outpatient (RCR) | payer MEDICARE, OTHER, SELFPAY ==
--- NOTE | 2021-12-22 11:41 | PTOPEVAL1 ---
Assessment and note entered by Kacie Choi DPT Evaluation Information Assessment Status Evaluation Reported Pain Level Pain Score 1: Self Report Additional Pain Score Comments Pt reports shoulder pain, R. Has been having difficulty exercising, dressing, lifting something overhead like in an airplane. Pain since late September, insidious onset. Also reports a history of neck pain and migraines. Assessment PT Clinical Summary The patient is presenting to skilled therapy with a several month history of R shoulder pain with activities like dressing and lifting. She presents with mild range of motion impairments and decreased strength which are contributing to her pain and difficulty with the above activities. She will benefit from therapy to address her impairments and reduce pain and dysfunction. Plan of Care Interventions Electrical Stimulation,Hot Pack/Cold Pack,Manual Therapy,Neuro Re-education,Patient/Caregiver Education,Therapeutic Activities,Therapeutic Exercise,Self-Care/Home Management PT Services Indicated Yes Treatment Frequency and 2 times a week for 4 weeks Duration These treatments will address the objective and functional deficits as defined above. The patient will be advanced safely and appropriately in order for the patient to progress towards his/her prior level of function. Additional exercises will be introduced and as well as a comprehensive home exercise program upon discharge, if needed, ?to ensure carryover of functional gains achieved in the clinic. This treatment plan has been reviewed and agreement upon by the patient.
--- NOTE | 2022-01-19 11:52 | PTOPPROG ---
Assessment and note entered by Fady Martinez, PT, DPT Evaluation Information Assessment Status Progress Diagnosis R shoulder and neck pain Subjective Information Pt states overall her shoulder is doing well. She states her shoulder still does hurt but not as often and not as intense when it does happen. She reports prior putting her arm on the passenger seat to look over her shoulder was extremely painful but this has improved. She states she went to the gym today ans was able to add additional exercises without an increase in pain. Assessment PT Clinical Summary Sally presents to therapy today for her progress report following 8 visits of skilled therapy. Today she demonstrates improved active ROM compared to her initial visit but this is still lacking compared to the uninvolved side. She also demonstrates painful cervical motion when nearing end ROM. Her strength is also limited by pain. Continuation of skilled therapy services are indicated to improve strength, ROM, to limit impairment, and to return to baseline function. Plan of Care Interventions Electrical Stimulation,Hot Pack/Cold Pack,Manual Therapy,Neuro Re-education,Patient/Caregiver Educati,Therapeutic Activities,Therapeutic Exercise,Self-Care/Home Management PT Services Indicated Yes Treatment Frequency and 2x/wk for 5 wks Duration These treatments will address the objective and functional deficits as defined above. The patient will be advanced safely and appropriately in order for the patient to progress towards his/her prior level of function. Additional exercises will be introduced and as well as a comprehensive home exercise program upon discharge, if needed, ?to ensure carryover of functional gains achieved in the clinic. This treatment plan has been reviewed and agreement upon by the patient.
--- NOTE | 2022-02-17 07:58 | PCPTNOTE ---
Patient reports she is sick and has to cancel.
--- NOTE | 2022-02-19 14:01 | PCPTNOTE ---
Patient canceled appointment due to illness.
--- NOTE | 2022-02-24 14:20 | PTOPDC ---
Assessment and note entered by Fady Martinez, PT, DPT Evaluation Information Assessment Status Discharge Diagnosis R shoulder and neck pain Subjective Information Pt states she is a little stiff today as she has been sick for about a week and just tried to exercise for the first time today. She states she is having achy pain vs true pain. She reports no limitations with getting dressed or folding laundry. She reports 90% improvement in her R shoulder and 75% improvement in her neck. Reported Pain Level Pain Score 1,0: Self Report Assessment PT Clinical Summary Sally presents to therapy today for her progress report following 16 visits of skilled therapy to treat her cervical pain as well as R shoulder pain . She demonstrates minor improvements in her cervical active ROM compared to her prior evaluation but improved good improvements in her pain. She reports improved pain with no functional limitations reports at this time. She has made progress towards all of her therapy goals and no longer requires skilled therapy at this time. She will be discharged with instruction to continue her HEP upon discharge and to follow up with her referring provider if her symptoms worsen. Plan of Care PT Services Indicated Yes Treatment Frequency and to be discharged Duration
== END 2022-02-25 15:48 | disposition home or self-care (01) ==
LOC: ANHGOSHPT 13:30
PROVIDERS: PCP Family Medicine; Visit Provider Family Medicine
DX: M25.511 Pain in right shoulder (principal)
CPT/HCPCS: 97110; 97112; 97140; 97161; 97530

== ENCOUNTER 2022-05-14 08:10 | Outpatient (CLI) | payer MEDICARE, OTHER, SELFPAY ==
--- NOTE | ~2022-05-14 | XR_ITS ---
AP view of the pelvis and AP and lateral views of the right hip Clinical history: Pain Findings: No acute fracture or dislocation is seen. Osseous alignment is anatomic. Right hip joint an d bilateral SI joints are preserved. Left hip arthroplasty is in place. Soft tissues are unremarkable . Impression: Left hip arthroplasty, otherwise unremarkable exam. Reviewed, dictated and finalized at location M. Impression: Left hip arthroplasty, otherwise unremarkable exam.
== END 2022-05-14 08:11 | disposition home or self-care (01) ==
PROVIDERS: PCP Family Medicine; Visit Provider Physician Assistant
DX: M25.551 Pain in right hip (principal); Z96.642 Presence of left artificial hip joint
CPT/HCPCS: 73502

== ENCOUNTER 2022-10-16 07:54 | Emergency (ER) | payer MEDICARE, OTHER, SELFPAY ==
--- NOTE | ~2022-10-16 | XR_ITS ---
[XR ribs BI 3V w CXR 2V ] INDICATION: Status post fall. Rib pain. TECHNIQUE: Frontal projection of the upper ribs, frontal projection of the lower ribs, oblique projec tion of all the ribs, frontal inspiratory chest x-ray for interpretation. FINDINGS: There are no displaced rib fractures identified. There are no soft tissue abnormality see n. The lungs are clear. IMPRESSION: 1:No acute displaced rib fractures. Reviewed, dictated and finalized at location B.
--- NOTE | ~2022-10-16 | CT_ITS ---
EXAMINATION: CT facial bones wo con DATE: 10/16/2022 09:36 INDICATION: Status post fall. Facial pain. TECHNIQUE: Computed tomography (CT) of the facial bones was performed without intravenous contrast. T he dose-length product was 305.72 mGy-cm. Automated exposure control and iterative reconstruction yasmany hnique were employed. COMPARISON: None FINDINGS: Orbits are intact without evidence for fracture. There is pneumatization of the paranasal s inuses. Mandible intact. There are bilateral donal bullosa. Leftward nasal septal deviation. Ostiome atal units are patent. There is right and for orbital/maxillary soft tissue swelling. No underlying f racture. IMPRESSION: 1. No acute fracture. Reviewed, dictated and finalized at location B. IMPRESSION: 1. No acute fracture.
--- NOTE | ~2022-10-16 | CT_ITS ---
EXAMINATION: CT brain wo con DATE: 10/16/2022 09:36 INDICATION: Status post fall. TECHNIQUE: Computed tomography (CT) of the head was performed without intravenous contrast. The dose- length product was 681.00 mGy-cm. Automated exposure control and iterative reconstruction technique w ere employed. COMPARISON: None FINDINGS: Brain parenchymal volume is normal. No acute intracranial hemorrhage, infarction, mass or m ass effect. No ventriculomegaly or midline shift. Basilar cisterns are patent. Normal grewal-white diff erentiation. Paranasal sinuses and mastoids are pneumatized. There is intracranial atherosclerosis. IMPRESSION: 1. No acute intracranial abnormality. Reviewed, dictated and finalized at location B.
[2022-10-16 08:04] VITALS: BP 170/75; PULSE 71; RESP 12; O2SAT 100
--- NOTE | 2022-10-16 08:51 | ED.FALL ---
HPI - Fall General Chief Complaint: Fall Stated Complaint: Fall while waling dog. Time Seen by Provider: 10/16/22 08:37 Source: patient Mode of arrival: ambulatory Limitations: no limitations History of Present Illness HPI Narrative: 67 years old white female came to the emergency room by private car complaining of left rib pain, right facial pain and abrasion, and soreness of the knees anteriorly bilaterally and upper extremities bilaterally after her dog pulled on her suddenly. No loss of consciousness, no head injury, no neck pain. Related Data Allergies Allergy/AdvReac Type Severity Reaction Status Date / Time Influenza Virus Vaccines Allergy Intermediate Difficulty Verified 10/16/22 08:09 Breathing HAZELNUTS Allergy Intermediate ITCHY Uncoded 10/16/22 08:09 THROAT Review of Systems Review of Systems: All systems reviewed & are unremarkable except as noted in HPI and below PMFSH Past Medical History Medical History Alcohol use 1-2 drinks/week Allergic rhinitis GERD (gastroesophageal reflux disease) Migraine Mitral valve prolapse Osteopenia Plantar fasciitis Weight gain Surgical History Surgical History History of foot surgery Willett's neuroma removal, 2019, Isaac History of hip replacement Family History Family History Mother Hypertension Family history of chronic obstructive pulmonary disease Family history of coronary artery disease Father Hypertension Family history of coronary artery disease Social History Social History Smoking status: Former smoker Second hand tobacco smoke exposure: No Alcohol intake: current Drinks per week: 12 Substance use: never Substance use type: does not use Living arrangements: with family Occupation/Education: retired Gender identity (if verbalized by the patient): Female Sexual Orientation (if Verbalized by the Patient): Straight or Heterosexual Spiritual care concerns: No Exam Narrative: General appearance: Well-developed, well-nourished Skin: Scattered abrasions and bruises at different parts of the body. Head: Normocephalic, nontraumatic, right facial bruises Eyes: Clear conjunctiva ENT: Oropharynx normal, ears normal, nose normal Neck: Supple, nontender Chest and respiratory: Airway patent, no respiratory distress, no accessory muscle use tenderness lower ribs/left/no bruises, no swelling or rash Heart: Regular rate/rhythm Abdomen: Soft, nontender, no organomegaly, quiet bowel sounds Vascular: Normal peripheral pulses, normal capillary refill. Musculoskeletal: Normal range of motion, nontender back patient able to move all extremities without any limitation Neurologic: Alert and oriented ?3, HADOOP ARCHITECT is normal as tested, no gross motor deficit Course Reevaluation(s) Reevaluation #1: Pain gradually getting worse, patient started aching all over. [place] plus ibuprofen ordered. Date: 10/16/22 Time: 11:22 Vital Signs Vital signs: Vital Signs Pulse Rate 71 10/16/22 08:04 Respiratory Rate 12 10/16/22 08:04 Blood Pressure 170/75 H 10/16/22 08:04 Pulse Oximetry 100 10/16/22 08:04 Oxygen Delivery Room Air 10/16/22 08:04 Pulse Rate 62 10/16/22 11:35 Respiratory Rate 16 10/16/22 11:35 Blood Pressure 159/68 H 10/16/22 11:35 Pulse Oximetry 100 10/16/22 11:35 Oxygen Delivery Room Air 10/16/22 08:04 MDM - Fall MDM Narrative Medical decision making narrative: Patient presents to the ED by dianne
[2022-10-16] MEDS: TETANUS,DIPHTHERIA,AC PERTUSSIS ADULT (0.5 ML) BOOSTRIX IM (09:11)
[2022-10-16 11:15] VITALS: BP 177/75; PULSE 54; RESP 18; O2SAT 100
[2022-10-16 11:35] VITALS: BP 159/68; PULSE 62; RESP 16; O2SAT 100
[2022-10-16] MEDS: IBUPROFEN 600 MG TABLET PO (11:39)
[2022-10-16] MEDS: HYDROcodone/acetaminophen (*CRX) 5-325 MG TABLET 1 TAB PO (11:39)
== END 2022-10-16 11:45 | disposition home or self-care (01) ==
PROVIDERS: Emergency Provider Emergency Medicine; PCP Family Medicine
DX: R07.89 Other chest pain (principal); S00.83XA Contusion of other part of head, initial encounter; Z23 Encounter for immunization; I34.1 Nonrheumatic mitral (valve) prolapse; M85.80 Other specified disorders of bone density and structure, unspecified site; K21.9 Gastro-esophageal reflux disease without esophagitis; Z96.649 Presence of unspecified artificial hip joint; Z87.891 Personal history of nicotine dependence; W18.39XA Other fall on same level, initial encounter; Y93.K1 Activity, walking an animal
CPT/HCPCS: 70450; 70486; 71046; 71110; 90471; 90715; 99284; A9270

== ENCOUNTER → 2022-11-09 11:11 | Outpatient (CLI) | payer MEDICARE, OTHER, SELFPAY ==
--- NOTE | ~2022-11-09 | XR_ITS ---
Right wrist Technique: PA, oblique, lateral, and ulnar deviation views were obtained. Clinical History: Pain Findings: No acute fracture or dislocation is seen. Osseous alignment is anatomic. Joint spaces are p reserved. Soft tissues are unremarkable. Impression: Unremarkable right wrist radiographs. Reviewed, dictated and finalized at location . Impression: Unremarkable right wrist radiographs.
== END ==
PROVIDERS: PCP Physician Assistant; Visit Provider Physician Assistant
DX: M25.531 Pain in right wrist (principal)
CPT/HCPCS: 73110

== ENCOUNTER 2022-12-24 12:50 | Outpatient (CLI) | payer MEDICARE, OTHER, SELFPAY | END 2022-12-24 12:51 | disposition home or self-care (01) | LOC: ANHAUDASC 12:50 | PROVIDERS: PCP Family Medicine; Visit Provider Family Medicine | DX: H90.3 Sensorineural hearing loss, bilateral (principal) | CPT/HCPCS: 92557; 92567 ==

== ENCOUNTER 2023-01-19 14:05 | Outpatient (CLI) | payer MEDICARE, OTHER, SELFPAY ==
--- NOTE | ~2023-01-19 | DEXA_ITS ---
Bone Density Report Name: ERIC HARDY Age: 67 Sex: Female Ethnicity: White Date of : 1955 Indication: osteopenia; postmenopausal Referring Provider: BEATRIZ OVALLES Study: Bone densitometry was performed. Exam Date: January 19, 2023 Accession number: [id number] Bone Density: Region BMD T-score Z-score Classification AP Spine(L1-L4) 0.914 -1.2 0.8 Osteopenia Femoral Neck (Right) 0.599 -2.3 -0.6 Osteopenia Total Hip (Right) 0.736 -1.7 -0.3 Osteopenia World Health Organization criteria for BMD impression classify patients as: Normal (T-score at or above -1.0), Osteopenia (T-score between -1.0 and -2.5), or Osteoporosis (T-score at or below -2.5). 10-year Fracture Risk(1): Major Osteoporotic Fracture 13% Hip Fracture 2.6% Reported Risk Factors: [place] (), Neck BMD=0.599, BMI=25.2 (1) FRAX(R) Version 3.08. Fracture probability calculated for an untreated patient. Fracture probability may be lower if the patient has received treatment. Previous Exams: Region Exam Age BMD T-score BMD Change BMD Change Date g/cm2 vs Baseline vs Previous AP Spine (L1-L4) 01/19/2023 67 0.914 -1.2 -0.061 (-6.3%) -0.006 (-0.6%) 01/09/2021 65 0.920 -1.2 -0.055 (-5.6%) -0.006 (-0.6%) 11/10/2018 63 0.925 -1.1 -0.049 (-5.1%) -0.034 (-3.5%) 11/09/2016 61 0.959 -0.8 -0.016 (-1.6%) -0.006 (-0.6%) 10/15/2014 59 0.964 -0.8 -0.010 (-1.0%) -0.010 (-1.0%) 10/12/2012 57 0.975 -0.7 Total Hip(Right) 01/19/2023 67 0.736 -1.7 -0.100 (-11.9% -0.035 (-4.6%) 01/09/2021 65 0.772 -1.4 -0.064 (-7.7%) -0.021 (-2.6%) 11/10/2018 63 0.792 -1.2 -0.044 (-5.2%) -0.031 (-3.8%) 11/09/2016 61 0.823 -1.0 -0.012 (-1.5%) -0.011 (-1.4%) 10/15/2014 59 0.835 -0.9 -0.001 (-0.1%) -0.001 (-0.1%) 10/12/2012 57 0.836 -0.9 *Denotes significance at 95% confidence level, LSC for AP Spine = 0.022 g/cm2, LSC for Total Hip = 0.027 g/cm2 # Denotes dissimilar scan types or analysis methods Clinical Information Provided by Patient: Has used the following medications: Vitamin D, Calcium Patient maximum height was 69 Menopause Age: 52 Drinks caffeinated beverages Onset of menses at age 11 Number of children 0 Impression: The patient has low bone mass, based on the Right Femoral Neck T-score. The patient has an estimated ten-year risk of hip fracture of 2.6% and an estimated ten-year risk of major fracture of 13%, based on the WHO FRAX algorithm. The BMD for the Total Hip(Right) decreased,
== END 2023-01-19 14:06 | disposition home or self-care (01) ==
PROVIDERS: PCP Family Medicine; Visit Provider Family Medicine
DX: Z78.0 Asymptomatic menopausal state (principal); M85.89 Other specified disorders of bone density and structure, multiple sites
CPT/HCPCS: 77080

== ENCOUNTER 2023-02-18 16:04 | Outpatient (CLI) | payer MEDICARE, OTHER, SELFPAY ==
--- NOTE | ~2023-02-18 | MM_ITS ---
EXAMINATION: MM screening lizzie BI w steven HISTORY: Screening mammogram TECHNIQUE: Craniocaudal and mediolateral oblique 3-D tomosynthesis images were obtained and synthetic 2-D images were generated. Bilateral rotated lateral CC views. CAD analysis was submitted and interp reted. COMPARISON: 01/12/2022, 01/09/2021 bilateral screening mammogram examinations BREAST PARENCHYMAL COMPOSITION: The breasts are extremely dense, which lowers the sensitivity of mamm ography. FINDINGS: There is no evidence of suspicious mass, calcification, or architectural distortion to sugg est malignancy in either breast. There has been no suspicious interval change. IMPRESSION: 1. No mammographic evidence of malignancy. 2. Recommend routine screening mammography in one year. BI-RADS Category 1: Negative Reviewed, dictated and finalized at location A. CTOR OF LOSS PREVENTION
== END 2023-02-18 16:05 | disposition home or self-care (01) ==
LOC: ANHIMG 16:09
PROVIDERS: PCP Family Medicine; Visit Provider Physician Assistant
DX: Z12.31 Encounter for screening mammogram for malignant neoplasm of breast (principal)
CPT/HCPCS: 77063; 77067

== ENCOUNTER 2023-04-05 12:34 | Outpatient (CLI) | payer MEDICARE, OTHER, SELFPAY ==
--- NOTE | 2023-04-05 13:03 | ECHO_ITS ---
Patient Info Name: Sally Seymour Age: 67 years : 1955 Gender: Female Ht: 68 in Wt: 162 lbs BSA: 1.89 m2 HR: 79 bpm BP: 161 / 92 mmHg Technical Quality: Fair Exam Date: 04/05/2023 1:29 PM Exam Location: Echo Lab Patient Status: Outpatient Admit Date: 04/05/2023 Staff Ordering Physician: Demetria Wilson PA-C Abstract Manager: Melanie Philippe RDCS Attending Provider: Demetria Wilson PA-C Referring Physician: Katie ALEXANDRA; Exam Type: CA echo doppler color flow Study Info Indications G45.9 - Transient cerebral ischemic attack, unspecified Complete two-dimensional, color flow and Doppler transthoracic echocardiogram is performed. Summary 1. Complete two-dimensional, color flow and Doppler transthoracic echocardiogram is performed. 2. Left ventricular chamber dimension is normal. 3. Left ventricular systolic function is normal, estimated at 65-70%. 4. The left ventricular diastolic function is grade I diastolic dysfunction. 5. E/e' 14 is mildly elevated. 6. There is mild aortic valve sclerosis. 7. There is mild to moderate aortic valve regurgitation. 8. There is trace mitral valve regurgitation. 9. There is mild tricuspid valve regurgitation. 10. No pulmonary hypertension, estimated pulmonary arterial systolic pressure is 31 mmHg. Left Ventricle E/e' 14 is mildly elevated. Left ventricular chamber dimension is normal. Left ventricular systolic function is normal, estimated at 65-70%. The left ventricular diastolic function is grade I diastolic dysfunction. Right Ventricle Right ventricular systolic function is normal and with normal TAPSE 2.6 cm. Right ventricular chamber dimension is normal. Left Atria Left atrial chamber dimension is normal. Right Atria Right atrial chamber dimension is normal. Aortic Valve The aortic valve is trileaflet. There is mild aortic valve sclerosis. There is no aortic valve stenosis. There is mild to moderate aortic valve regurgitation. Pulmonic Valve There is no pulmonic regurgitation. Mitral Valve There is no mitral valve stenosis. There is trace mitral valve regurgitation. Tricuspid Valve There is mild tricuspid valve regurgitation. No pulmonary hypertension, estimated pulmonary arterial systolic pressure is 31 mmHg. Pericardium/Pleural There is no pericardial effusion. Inferior Vena Cava Normal inferior vena cava with >50% collapse upon inspiration consistent with normal right atrial pressure, 5 mmHg. Aorta The aortic root size at the sinus of Valsalva is normal. Left Ventricular Outflow Tract Name Value Normal LVOT 2D LVOT Diameter 2.0 cm LVOT Doppler LVOT Peak Gradient 7 mmHg LVOT Mean Gradient 4 mmHg LVOT VTI 29 cm LVOT VTI/AV VTI Ratio 0.7 LVOT Stroke Volume 90 ml LVOT CO 17.6 l/min LVOT CI 9.3 l/min/m2 Pulmonic Valve Name Value Normal
== END 2023-04-05 12:35 | disposition home or self-care (01) ==
LOC: ANHCARD 12:35
PROVIDERS: PCP Family Medicine; Visit Provider Physician Assistant
DX: R93.1 Abnormal findings on diagnostic imaging of heart and coronary circulation (principal); I35.8 Other nonrheumatic aortic valve disorders; I35.1 Nonrheumatic aortic (valve) insufficiency; I34.0 Nonrheumatic mitral (valve) insufficiency; I07.1 Rheumatic tricuspid insufficiency
CPT/HCPCS: 93306

== ENCOUNTER 2023-04-07 09:54 | Outpatient (CLI) | payer MEDICARE, OTHER, SELFPAY ==
--- NOTE | ~2023-04-07 | US_ITS ---
Procedure: Duplex Doppler examination of the bilateral carotids. Indication: TIA Technique: Real time, color-flow and pulse wave Doppler examination of the bilateral carotids was performed. Findings: Russo scale ultrasonography of the right neck demonstrated no significant plaque. There was demonstrat ion of normal color-flow and Doppler waveforms within the right common, internal and external carotid arteries. The peak systolic velocities in the right common, internal and external carotid arteries w ere demonstrated to be 71 cm/sec, 80 cm/sec and 47 cm/sec respectively. The right ICA/CCA ratio was 1 .1.The proximal right internal carotid artery demonstrates 0% stenosis relative to the normal distal artery lumen diameter. Russo scale sonography of the left neck demonstrated no significant plaque. There was demonstration of normal color-flow and wave forms within the left common, internal and external carotid arteries. The peak systolic velocities in the left common, internal and external carotid arteries were demonstrate d to be 70cm/sec, 64 cm/sec and 45 cm/sec respectively. The left ICA/CCA ratio was 0.9. The proximal left internal carotid artery demonstrates 0% stenosis relative to the normal distal artery lumen diam eter. There was antegrade flow demonstrated in the bilateral vertebral arteries. Impression: No hemodynamically significant stenosis of the bilateral internal carotid arteries. Antegrade flow in the bilateral vertebral arteries. Note: The methodology used is an indirect measurement validated against a direct method (such as the NASCET criteria) that compares diameters at the stenosis to the distal ICA. Reviewed, dictated and finalized at [facility]. 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 Antegrade flow in the bilateral vertebral arteries. Note: The methodology used is an indirect measurement validated against a direct meth od (such as the NASCET criteria) that compares diameters at the stenosis to the distal ICA.
--- NOTE | ~2023-04-07 | CT_ITS ---
EXAMINATION: CT brain wo con DATE: 04/07/2023 10:23 INDICATION: Transient ischemic attack TECHNIQUE: Computed tomography (CT) of the head was performed without intravenous contrast. The mA wa s adjusted according to patient size. Iterative reconstruction technique was employed. Exam dose: 60 5.33 mGy-cm total exam DLP. COMPARISON: 10/16/2022 CT brain FINDINGS: No intracranial mass lesion or hemorrhage or cerebrovascular accident, midline shift or mas s effect is detected. Bilateral carotid siphon internal carotid artery calcifications are noted. Normal ventricular size. No subdural or epidural hematoma. Right mastoid effusions. The left mastoid air cells are well-developed and aerated. Included paranasa l sinuses are unremarkable. No fracture or bone destruction of the cranial vault. IMPRESSION: No acute intracranial finding Reviewed, dictated and finalized at [facility] Reviewed, dictated and finalized at [facility]. A LIAISON OFFICER
== END 2023-04-07 09:55 | disposition home or self-care (01) ==
PROVIDERS: PCP Family Medicine; Visit Provider Physician Assistant
DX: G45.9 Transient cerebral ischemic attack, unspecified (principal)
CPT/HCPCS: 70450; 93880

== ENCOUNTER 2023-07-04 11:45 | Emergency (ER) | payer MEDICARE, OTHER, SELFPAY ==
--- NOTE | ~2023-07-04 | XR_ITS ---
XR ankle RT min 3V DATE: 07/04/2023 12:38 INDICATION: Right ankle injury TECHNIQUE: 4 views COMPARISON: None FINDINGS: There is a comminuted fracture of the calcaneus with flattening of the basilar is angled. Plantar calcaneal enthesopathy. No fracture or dislocation of the ankle or disruption of the ankle mortise or ankle soft tissue swell ing is noted. No periosteal reaction or bone destruction of the included tibia or fibula. IMPRESSION: Comminuted fracture of the calcaneus Reviewed, dictated and finalized at [facility].
--- NOTE | ~2023-07-04 | XR_ITS ---
XR foot RT min 3V DATE: 07/04/2023 12:39 INDICATION: Mid foot and fourth toe tenderness, bruising TECHNIQUE: 4 views of right foot COMPARISON: None FINDINGS: There is osteopenia. Plantar calcaneal enthesopathy. There is a comminuted fracture of the calcaneus, with flattening of the liver is angled. No other fracture or dislocation, periosteal reaction or bone destruction. IMPRESSION: Comminuted fracture of the calcaneus Reviewed, dictated and finalized at [facility].
[2023-07-04 11:53] VITALS: BP 176/99; PULSE 69; RESP 18; TEMP 36.6; O2SAT 100
--- NOTE | 2023-07-04 12:28 | ED.LOWEXIN ---
HPI - Extremity Injury (Lower) General Chief Complaint: Extremity Injury, Lower Stated Complaint: ankle Time Seen by Provider: 07/04/23 11:47 History of Present Illness HPI Narrative: Patient is a 59-year-old female who presents ER with right-sided ankle pain. Proximal midfoot as well as the 4th digit. She slipped and fell down half a flight of stairs. She did not strike her head or lose consciousness. No other areas of injury. No numbness or tingling to the foot. Has not bore weight due to pain. Related Data Allergies Allergy/AdvReac Type Severity Reaction Status Date / Time Influenza Virus Vaccines Allergy Intermediate Difficulty Verified 07/04/23 11:56 Breathing HAZELNUTS Allergy Intermediate ITCHY Uncoded 07/04/23 11:56 THROAT Review of Systems Constitutional: Constitutional: Reports no additional constitutional complaints Cardiovascular: Cardiovascular: Reports no additional cardiovascular complaints Respiratory: Respiratory: Reports no additional respiratory complaints Gastrointestinal: Gastrointestinal: Reports no additional gastrointestinal complaints Musculoskeletal: Musculoskeletal: Denies back pain, Reports arthralgias and Reports joint swelling Neurologic: Reports system reviewed and no additional complaints, except as documented PMFSH Past Medical History Medical History Alcohol use 1-2 drinks/week Allergic rhinitis GERD (gastroesophageal reflux disease) Migraine Mitral valve prolapse Osteopenia Plantar fasciitis Weight gain Surgical History Surgical History History of foot surgery Willett's neuroma removal, 2019, Isaac History of hip replacement Family History Family History Mother Hypertension Family history of chronic obstructive pulmonary disease Family history of coronary artery disease Father Hypertension Family history of coronary artery disease Social History Social History Smoking status: Former smoker Second hand tobacco smoke exposure: No Alcohol intake: current Drinks per week: 12 Substance use: never Substance use type: does not use Living arrangements: with family Occupation/Education: retired Gender identity (if verbalized by the patient): Female Sexual Orientation (if Verbalized by the Patient): Straight or Heterosexual Spiritual care concerns: No Exam Narrative: GENERAL: Well-appearing, well-nourished, and in no acute distress. HEAD: Normocephalic, atraumatic. ENT: Mucous membranes moist. CHEST: Clear to auscultation. No respiratory distress. HEART: Regular rate and rhythm. Normal peripheral pulses. EXTREMITIES: Normal range of motion. No edema. Tender to palpation proximal midfoot near rt ATFL. Bruising and tenderness to the DIP of the 4th digit on the right. Mild right heel tenderness. SKIN: Warm, dry, no rash. NEURO: Alert and oriented x3. PSYCH: Normal mood and affect. Course Course Emergency Course: Patient informed of results. Discussed case with Dr. Clemens. This reports he can refer this to foot and ankle but should also give additional contacts the patient Patient will be nonweight bearing. Vital Signs Vital signs: Vital Signs Temperature 97.9 F 07/04/23 11:53 Pulse Rate 69 07/04/23 11:53 Respiratory Rate 18 07/04/23 11:53 Blood Pressure 176/99 H 07/04/23 11:53 Pulse Oximetry 100 07/04/23 11:53 Oxygen Delivery Room Air 07/04/23 11:53 Temperature 97.9 F 07/04/23 11:53 Pulse Rate 69 07/04/23 11:53 Respiratory Rate 18 07/04/23 11:53 Blood Pressure 176/99 H 07/04/23 11:53 Pulse Oximetry 100 07/04/23 11:53 Oxygen Delivery Room Air 07/04/23 11:53 MDM - Extremity Injury (Lower) Imaging Data Radiologist's impression:
[2023-07-04] MEDS: HYDROcodone/acetaminophen (*CRX) 5-325 MG TABLET 1 TAB PO (12:44)
--- NOTE | 2023-07-14 11:31 | PC.NURSE ---
Late entry: Wound/Injury assessment and interventions performed on right lower leg.
== END 2023-07-04 14:01 | disposition home or self-care (01) ==
PROVIDERS: Emergency Provider Emergency Medicine; PCP Family Medicine
DX: S92.001A Unspecified fracture of right calcaneus, initial encounter for closed fracture (principal); I34.1 Nonrheumatic mitral (valve) prolapse; K21.9 Gastro-esophageal reflux disease without esophagitis; M85.80 Other specified disorders of bone density and structure, unspecified site; Z96.649 Presence of unspecified artificial hip joint; Z87.891 Personal history of nicotine dependence; W10.9XXA Fall (on) (from) unspecified stairs and steps, initial encounter
CPT/HCPCS: 29515; 73610; 73630; 96372; 99284; A9270; J1885

== ENCOUNTER 2023-07-04 21:28 | Emergency (ER) | payer MEDICARE, OTHER, SELFPAY ==
[2023-07-04 21:37] VITALS: BP 125/76; PULSE 68; RESP 18; TEMP 36.6; O2SAT 100
--- NOTE | 2023-07-04 23:50 | ED.GENADULT ---
HPI - General Adult General Chief complaint: Extremity Injury, Lower Stated complaint: left leg numbness Time Seen by Provider: 07/04/23 23:26 History of Present Illness HPI narrative: This is a 67-year-old female presenting to the ED with pain in her heel. Patient was seen here earlier today diagnosed with calcific fracture. She was placed in a splint and discharged home on [place]. She started developed some pins and needles in her foot. She also had achy pain in her heel. She can still move her toes. Sensation is intact. Related Data Allergies Allergy/AdvReac Type Severity Reaction Status Date / Time Influenza Virus Vaccines Allergy Intermediate Difficulty Verified 07/04/23 11:56 Breathing HAZELNUTS Allergy Intermediate ITCHY Uncoded 07/04/23 11:56 THROAT PMFSH Past Medical History Medical History Alcohol use 1-2 drinks/week Allergic rhinitis GERD (gastroesophageal reflux disease) Migraine Mitral valve prolapse Osteopenia Plantar fasciitis Weight gain Surgical History Surgical History History of foot surgery Willett's neuroma removal, History of hip replacement Family History Family History Mother Hypertension Family history of chronic obstructive pulmonary disease Family history of coronary artery disease Father Hypertension Family history of coronary artery disease Social History Social History Smoking status: Former smoker Second hand tobacco smoke exposure: No Alcohol intake: current Drinks per week: 12 Substance use: never Substance use type: does not use Living arrangements: with family Occupation/Education: retired Gender identity (if verbalized by the patient): Female Sexual Orientation (if Verbalized by the Patient): Straight or Heterosexual Spiritual care concerns: No Exam Narrative: APPEARANCE: No apparent distress. Head: atraumatic. EYES: EOMI, NOSE: Atraumatic NECK: Trachea midline RESPIRATORY: No increased rate of breathing CARDIOVASCULAR: RRR, ABDOMINAL: Non-distended MUSCULOSKELETAl: Focal exam of the lower extremity revealed a posterior splint in place. Patient is able to wiggle her toes. Cap refill is less than 2 seconds. NEURO: Alert. Moving 4/4 extremities SKIN:: Warm, dry. Normal color PSYCHIATRIC: Normal affect Course Vital Signs Vital signs: Vital Signs Temperature 98 F 07/04/23 21:37 Pulse Rate 68 07/04/23 21:37 Respiratory Rate 18 07/04/23 21:37 Blood Pressure 125/76 07/04/23 21:37 Pulse Oximetry 100 07/04/23 21:37 Oxygen Delivery Room Air 07/04/23 21:37 Temperature 98 F 07/04/23 21:37 Pulse Rate 68 07/04/23 21:37 Respiratory Rate 18 07/04/23 21:37 Blood Pressure 125/76 07/04/23 21:37 Pulse Oximetry 100 07/04/23 21:37 Oxygen Delivery Room Air 07/04/23 21:37 Medical Decision Making MDM Narrative Medical decision making narrative: -Course:67-year-old female presenting back to the ED with numbness and tingling her toes. Her Hi bandage wrap was loosened with immediate resolution of her tingling. She still has some pain in the foot. But she was given pain medication with control her symptoms. Pain is not out of proportion. Foot is neurovascularly intact. Patient is comfortable going home and following up with Orthopedics as previously planned. -Interventions: Toradol, Tylenol, oxycodone -Shared decision making / Disposition: discharge -RX Motrin, Tylenol Vital Signs Vital Signs: Vital Signs Temperature 98 F 07/04/23 21:37 Pulse Rate 68 07/04/23 21:37 Respiratory Rate 18 07/04/23 21:37 Blood Pressure 125/76 07/04/23 21:37 Pulse Oximetry 100 07/04/23 21:37 Oxygen Delivery Room Air 07/04/23 21:37 Te
[2023-07-04] MEDS: oxyCODONE HCL (*CRX) 5 MG TAB IR PO (23:51)
[2023-07-04] MEDS: ACETAMINOPHEN 500 MG TABLET 1000 MG PO (23:51)
[2023-07-04] MEDS: KETOROLAC 30 MG/ML VIAL (*BKC) IM (23:51)
== END 2023-07-05 00:16 | disposition home or self-care (01) ==
PROVIDERS: Emergency Provider Emergency Medicine; PCP Family Medicine
DX: S92.002D Unspecified fracture of left calcaneus, subsequent encounter for fracture with routine healing (principal); K21.9 Gastro-esophageal reflux disease without esophagitis; I34.1 Nonrheumatic mitral (valve) prolapse; M85.80 Other specified disorders of bone density and structure, unspecified site; Z96.649 Presence of unspecified artificial hip joint; Z87.891 Personal history of nicotine dependence; X58.XXXD Exposure to other specified factors, subsequent encounter
CPT/HCPCS: 96372; 99283; A9270; J1885

== ENCOUNTER 2023-09-20 10:00 | Outpatient (RCR) | payer MEDICARE, OTHER, SELFPAY ==
--- NOTE | 2023-08-20 11:02 | OPREHPOC ---
Outpatient Therapy Plan of Care This is a Multidisciplinary Plan of Care that may contain components documented by all disciplines (PT, OT, and ST.) PT Problem 1 PT Problem #1 Knowledge Deficit PT Goal 1 Goal *indep with HEP for management of vestibular symptoms Target Visit 8 PT Problem 2 PT Problem #2 Impaired Vestibular Syste PT Goal 1 Goal improve vestibular system, evident by pt able to perform without symptoms: 1* walking 50' with head motions R/L 3x 2* pt roll R/L on mat 3* supine/sit transfer 4* Dizziness Handicap Index self rating of 20/100 5* further assessment of vestibular system as treatment progresses Target Visit 8
--- NOTE | 2023-08-20 11:03 | PTOPEVAL1 ---
Assessment and note entered by Natasha Seo, PT Evaluation Information Assessment Status Evaluation Diagnosis dizziness, vestibular therapy Onset June 2023 Subjective Information had dizziness, called dr and meclazine did not help, have another med that has helped; tried a maneuver that did not make a difference; have had a few dizzy spells in the past, did Eply and it eased. Symptoms: spinning, so bad have to hold on so do not fall;nauseous; duration varies- unable to state time increase with: turning head, roll over in bed decrease: sit still History of motion sickness; Activity: using crutches now due to R foot fracture and walking boot; prior- active, walk dogs and do fitness exercises; Reported Pain Level Pain Score 0: Self Report Assessment PT Clinical Summary Sally has the diagnosis of dizziness, vestibular rehab. Dizziness Handicap Index rating 48/100. History of previous dizziness, several times, cleared with maneuvers. Medical history includes: migraines, managed with meds; allergy and sinus issues with meds; bilateral hearing aides; With the evaluation: pt has L ant/post canal BPPV Eply performed and pt educated on safety--hold still and eye focus, and general vestibular education. Skilled PT services indicated for vestibular rehab education for management of symptoms. Plan of Care Interventions Neuro Re-education,Patient Education, Therapeutic Activities,Therapeutic Exercise PT Services Indicated Yes Treatment Frequency and 1-2x/wk for 8 visits Duration These treatments will address the objective and functional deficits as defined above. The patient will be advanced safely and appropriately in order for the patient to progress towards his/her prior level of function. Additional exercises will be introduced and as well as a comprehensive home exercise program upon discharge, if needed, ?to ensure carryover of functional gains achieved in the clinic. This treatment plan has been reviewed and agreement upon by the patient.
--- NOTE | 2023-09-20 10:28 | PTOPDC ---
Assessment and note entered by Natasha Seo, PT Discharge Report Assessment Status Discharge Diagnosis dizziness, vestibular therapy Onset June 2023 Subjective Information have not had any dizziness for about 2 weeks, but only had one incident when moved around to fast, just had to sit still and center myself for few seconds; still using the crutches due to her ankle problems; Reported Pain Level Pain Score 0: Self Report Assessment PT Clinical Summary Sally has received 5 PT sessions for dizziness. BPPV maneuvers to correct for L anterior/posterior canal BPPV. Compared to the initial evaluation: has not had any dizziness in the past 2 weeks; Dizziness Handicap Index rating from 48 to 0/100; able to perform bed mobility, transfer and gait without any issues. Education completed for safety with mobility and self correction maneuver for BPPV. She continues to take allergy meds regularly and is not longer taking any meclazine. The goals were achieved. Discharge PT services. Plan of Care PT Services Indicated No
== END 2023-09-20 11:45 | disposition home or self-care (01) ==
LOC: ANHPT 10:00
PROVIDERS: PCP Family Medicine; Visit Provider Physician Assistant
DX: H81.12 Benign paroxysmal vertigo, left ear (principal)
CPT/HCPCS: 95992; 97112; 97161; 97530

== ENCOUNTER 2024-03-14 07:40 | Outpatient (CLI) | payer MEDICARE, OTHER, SELFPAY ==
--- NOTE | ~2024-03-14 | MM_ITS ---
EXAMINATION: MM screening lizzie BI w steven HISTORY: Screening TECHNIQUE: Craniocaudal and mediolateral oblique 3-D tomosynthesis images were obtained and synthetic 2-D images were generated. CAD analysis was submitted and interpreted. COMPARISON: Comparison to multiple prior studies sequentially, with oldest reviewed study dated 11/10. BREAST PARENCHYMAL COMPOSITION: Dense: The breasts are extremely dense, which lowers the sensitivity of mammography. FINDINGS: There is no evidence of suspicious mass, calcification, or architectural distortion to sugg est malignancy in either breast. There has been no suspicious interval change. IMPRESSION: 1. No mammographic evidence of malignancy. 2. Recommend routine screening mammography in one year. BI-RADS Category 1: Negative Reviewed, dictated and finalized at [facility]. 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
--- OUTSIDE RECORDS SUMMARY | 2024-03-16 15:39 | XMS_ITS | Continuity of Care Document ---
Author Name [facility] Organization [facility] Care Team Providers Care Windows Systems Admin Name Role Phone [facility] Unavailable Unavailable Problems Combined list of problems from Department of Defense and Veterans Affairs facilities. It does not include entries that were removed or entered in error. Problem Status Onset Date Problem Type Date of Resolution Comments Source dyspareunia Active Condition DoD visit for: single system exam gynecological Inactive Condition DoD visit for: laboratory Inactive Condition DoD skin disorders appendage hair follicle folliculitis Inactive Condition DoD X-Ray Active Condition DoD arthritis Active Condition DoD esophagitis chronic reflux Active Condition DoD allergic rhinitis Active Condition DoD joint pain, localized in the hip Active Condition DoD Abdomen Tenderness Active Condition DoD atypical chest pain Inactive Condition D oD tingling (paresthesia) Active Condition DoD cervical radiculopathy Active Condition DoD cervical radiculopathy C6 Active Condition DoD intervertebral disc degeneration Active Condition DoD visit for: screening exam cardiovascular disorders Active Condition DoD Combined Systolic And Diastolic Elevation Active Condition DoD chest pain or discomfort Active Condition DoD sudden redness of the skin (flushing) Active Condition DoD Blood Pressure Isolated Elevated Active Condition DoD joint pain, localized in the elbow Active Condition DoD routine history and physical adult (18 - 64 yrs) Active Condition DoD lateral epicondylitis (tennis elbow) right Active Condition DoD joint pain, localized in the shoulder Active Condition DoD tendonitis Active Condition DoD anomalies of nails Active Condition DoD Cervical Pap Smear Unsatisfactory Active Condition DoD Administrative Evaluation Services Active Condition DoD Outpatient Physician Consultation Active Condition DoD osteopenia Active Condition discussed calcium, Vit D, wt bearing exercise; discussed fosamax 35mg/wk, discussed decreasing caffeine intake; pt desires to try lifestyle changes 1st and not do meds yet. Repeat bone density 1yr DoD postmenopausal bleeding Active Condition con't to monitor; if spotting persists, to notify clinic and will complete MRI; discussed minimal concern with endometrial stripe 1.2mm DoD visit for: issue repeat prescription Inactive Condition DoD costochondritis (Tietze's syndrome) Active Condition DoD urinary tract infection Inactive Condition DoD Cervical Pap Smear Active Condition DoD visit for: issue repeat prescription for medication Active Condition JOSE EDUARDO SEYMOUR Age:51 [id number] OUTPAT PRE-ACTIVE ORDERS 1 RX CETIRIZINE HCL--PO 10MG TAB~TD RF2 #90 DS30 on 23 Dec 2006@1100 {RDH} ~HCP Sig.Needed~PRE- ACTIVE . . . . . . . . sGUSTIM 1NOV@1100 2 RX MONTELUKAST SOD (SINGULAIR)--PO 10MG TAB ~TH RF2 #90 DS30 on 23 Dec 2006@1101 {RDH} ~HCP Sig.Needed~PRE- ACTIVE . . . . . . . . sGUSTIM 1NOV@1101 DoD migraine headache Active Condition DoD rhinitis Active Condition DoD dermatophytosis nails onychomycosis Inactive Condition DoD routine history and physical Inactive Condition DoD Need For Vaccination Against Influenza Inactive Condition DoD Need For Vaccination Against Td Inactive Condition DoD Physical Examination Inactive Condition f/u prn. DoD visit for: screening exam for malignant neoplasm cervix Active Condition DoD routine gynecological exam with cervical pap smear Inactive Condition likely unsat pap; would recommend cytotech prior to repeat and can do with EMB if needed DoD bereavement without complications Active Condition Patient experiencing appropriate amount of grief for recent of mother. D/w pt option of counseling if desired. Pt declines at this time. Will f/u if feels grief is prolonged or begins to inhibit her normal daily activities. DoD breast pain Active Condition Exam c/w FCBD. Mammo to verify. DoD visit for: administrative purpose Active Condition DoD Medications Combined list of outpatient medications from Department of Defense and Veterans Affairs facilities.Medications provided include 1) outpatient medications from the last 15 months, and 2) patient-reported medications. Medication Details Route Status Patient Instructions Prescription Expires Prescription Number Last Dispense Date Ordering Provider Order Date Order Qty Source Alprazolam (Actavis Brand) Tablet 0.5 mg Oral Federal law prohibit s transfer of prescrip tion.Do not take if .Avoid grapefru it and grapefru it juice.Ma y cause drowsine ss/dizzi ness. 02/01/2024 [id number] 4 2023 10 [facility] Daljit GOINS [place] [place] ALPRAZOLAM (ALPRAZOLAM ), 0.5MG, TABLET, ORAL, ACTAVIS ELIZABE, 500 ea. BOTTLE Cancele d [id number] : 2023 0 Pharmac y Data Transac tion Service Facilit y ALPRAZOLAM (ALPRAZOLAM ), 0.5MG, TABLET, ORAL, ACTAVIS ELIZABE, 500 ea. BOTTLE Active [id number] 4 2023 10 Pharmac y Data Transac tion Service Facilit y ALPRAZolam 0.5 mg tablet See Instruct ions, # 10 EA, 0 total refill(s ), Hard Stop Complet ed 02/01/2024 10.0 Ambulat ory Pharmac y amitriptyli ne 25 mg tablet 25 mg, Oral, Daily, # 90 EA, 3 total refill(s ), Hard Stop Oral (given by mouth) Ordered 12/26/2024 90.0 Ambul at ory Pharmac y amitriptyli ne 25 mg tablet 25 mg, Oral, every day at bedtime, # 90 EA, 3 total refill(s ), Hard Stop Oral (given by mouth) Complet ed 02/29/2024 90.0 Ambulat ory Pharmac y Amitriptyli ne Hydrochlori de (Elavil Eq.) Tablet 25 mg Oral May cause drowsine ss.Avoid exposure to sun.Take or use exactly as directed .Obtain advice for OTCs. 02/29/2024 [id number] 4 [address] [place] [address] Daljit BROWN [place] [place] CETIRIZINE (U/D) 10 MG ORAL TAB May cause drowsine ss.Obtai n advice for OTCs. 02/29/2024 [id number] 4 [address] [place] [address] Daljit GOINS [place] [place] cetirizine 10 mg tablet 10 mg, Oral, Daily, # 90 EA, 3 total refill(s ), Hard Stop Oral (given by mouth) Ordered 12/26/2024 90.0 Ambul at ory Pharmac y cetirizine 10 mg tablet 10 mg, Oral, Daily, # 90 EA, 3 total refill(s ), Hard Stop Oral (given by mouth) Complet ed 02/29/2024 90.0 Ambulat ory Pharmac y clobetasol 0.05% topical solution APPLY 2 TO 3 DROPS TWICE A DAY TO ITCHY AREAS ON SCALP/EA RS FOR 4 WEEKS FOR FLARES. DO NOT APPLY TO FACE. TAKE A 2 WEEK BREAK BEFORE RESTARTI NG., # 50 mL, 2 total refill(s ), Acute Complet ed 05/05/2023 50.0 Ambulat ory Pharmac y DICLOFENAC SODIUM 75 MG ORAL TBEC Take with food/mil k.Take or use exactly as directed .Obtain advice for OTCs.May cause drowsine ss/dizzi ness.Swa llow whole.Do not take if . Active 06/20/2024 [id number] 4 2023 60 [facility] Daljit GOINS [place] [place] diclofenac sodium EC 75 mg tablet 75 mg, Oral, BID, # 60 EA, 0 total refill(s ), Hard Stop Oral (given by mouth) Complet ed 10/23/2023 60.0 Ambulat ory Pharmac y diclofenac sodium EC 75 mg tablet 75 mg, Oral, BID, # 60 EA, 0 total refill(s ), Hard Stop Oral (given by mouth) Ordered 06/20/2024 60.0 Ambul at ory Pharmac y FLONASE-OTC (BRAND) 50 MCG FLOR SPSN [9.9] Take or use exactly as directed .For the nose. 02/29/2024 [id number] 4 [address] [place] [address] Daljit GOINS [place] [place] fluticasone 50 mcg/inh nasal spray [16g] See Instruct ions, # 48 g, 3 total refill(s ), Hard Stop Ordered 12/26/2024 48.0 Ambul at ory Pharmac y fluticasone 50 mcg/inh nasal spray [16g] See dose instruct ions in comments , # 48 g, 2 total refill(s ), Acute Complet ed 12/15/2022 48.0 Ambulat ory Pharmac y HYDROCODONE -ACETAMINOP HEN (HYDROCODON E/ACETAMINO PHEN), 5MG-325MG, TABLET, ORAL, AMNEAL PHARMACE, 100 ea. BOTTLE Active [id number] 2023 20 Pharmac y Data Transac tion Service Facilit y IBUPROFEN (ibuprofen) , 800 MG, TABLET, ORAL, AUROBINDO PHARM, 500 ea. BOTTLE Cancele d [id number] : 2023 0 Pharmac y Data Transac tion Service Facilit y loratadine 10 mg oral tablet TAKE ONE TABLET BY MOUTH EVERY DAY, # 90 EA, 3 total refill(s ), Acute Complet ed 10/27/2022 90.0 Ambulat ory Pharmac y MONTELUKAST (U/D) 10 MG ORAL TAB Take or use exactly as directed . 02/29/2024 [id number] 4 2023 90 [facility] Daljit GOINS [place] [place] montelukast 10 mg tablet 10 mg, Oral, Daily, # 90 EA, 3 total refill(s ), Hard Stop Oral (given by mouth) Ordered 12/26/2024 90.0 Ambul at ory Pharmac y montelukast 10 mg tablet See Instruct ions, # 90 EA, 1 total refill(s ), Acute Complet ed 10/27/2022 90.0 Ambulat ory Pharmac y montelukast 10 mg tablet 10 mg, Oral, Daily, # 90 EA, 3 total refill(s ), Hard Stop Oral (given by mouth) Discont inued 03/02/2023 90.0 Ambulat ory Pharmac y ONDANSETRON ODT (ONDANSETRO N), 4 MG, TAB RAPDIS, ORAL, AUROBINDO PHARM, 30 ea. BLIST PACK Active [id number] 2023 20 Pharmac y Data Transac tion Service Facilit y pantoprazol e EC 40 mg tablet 40 mg, Oral, Daily, # 90 EA, 3 total refill(s ), Hard Stop Oral (given by mouth) Ordered 12/26/2024 90.0 Ambul at ory Pharmac y pantoprazol e EC 40 mg tablet 40 mg, Oral, Daily, # 90 EA, 3 total refill(s ), Hard Stop Oral (given by mouth) Complet ed 02/29/2024 90.0 Ambulat ory Pharmac y Pimecrolimu s (Elidel Eq.) Cream 1% Topical For external use. Active 08/16/2024 [id number] 4 [address] [place] [address] Daljit [facility] [place] Pimecrolimu s (Elidel Eq.) Cream 1% Topical For external use. 02/02/2024 [id number] [address] [place] [address] [place] pimecrolimu s 1% cream [100g] See Instruct ions, Topical, BID, # 100 g, 3 total refill(s ), Hard Stop Topica l (on the skin) Ordered 08/16/2024 100.0 Ambul at ory Pharmac y pimecrolimu s 1% cream [60g] See Instruct ions, # 60 g, 2 total refill(s ), Acute Complet ed 05/05/2023 60.0 Ambulat ory Pharmac y pimecrolimu s 1% cream [60g] See Instruct ions, # 60 g, 3 total refill(s ), Hard Stop Discont inued 08/17/2023 60.0 Ambulat ory Pharmac y Premarin 0.625 mg/g vaginal cream [30g] See Instruct ions, 0, # 90 g, 3 total refill(s ), Hard Stop Ordered 12/26/2024 90.0 Ambul at ory Pharmac y Premarin 0.625 mg/g vaginal cream [30g] See dose instruct ions in comments , # 90 g, 3 total refill(s ), Acute Complet ed 12/15/2022 90.0 Ambulat ory Pharmac y rosuvastati n 5 mg tablet 5 mg, Oral, Daily, # 90 EA, 3 total refill(s ), Hard Stop Oral (given by mouth) Ordered 12/26/2024 90.0 Ambul at ory Pharmac y rosuvastati n 5 mg tablet 5 mg, Oral, Daily, # 90 EA, 2 total refill(s ), Hard Stop Oral (given by mouth) Discont inued 03/01/2024 90.0 Ambulat ory Pharmac y ROSUVASTATI N CALCIUM (rosuvastat in calcium), 5 MG, TABLET, ORAL, NOVADOZ PHARMAC, 1000 ea. BOTTLE Active [id number] 4 2023 90 Pharmac y Data Transac tion Service Facilit y SUMAtriptan (U/D) 100 MG ORAL TAB Take or use exactly as directed . 02/29/2024 [id number] 4 [address] [place] [address] [place] SUMAtriptan 100 mg oral tablet TAKE ONE TABLET BY MOUTH EVERY DAY DIRECTED , # 27 EA, 2 total refill(s ), Acute Complet ed 10/27/2022 27.0 Ambulat ory Pharmac y SUMAtriptan 100 mg tablet 100 mg, Oral, Daily, # 27 EA, 3 total refill(s ), Hard Stop Oral (given by mouth) Ordered 12/26/2024 27.0 Ambul at ory Pharmac y SUMAtriptan 100 mg tablet 100 mg, Oral, Daily, # 27 EA, 3 total refill(s ), Hard Stop Oral (given by mouth) Complet ed 02/29/2024 27.0 Ambulat ory Pharmac y Allergies, Adverse Reactions, Alerts Combined list of allergies from Department of Defense and Veterans Affairs facilities. It does not include entries that were removed or entered in error. Substance Category Reaction Severity Reaction type Status Date Reported Comments Source Hazelnuts Food allergy Edema of larynx Unknown Active 6 Ambulatory Pharmacy NUT.TX. METABOLIC DISORDER,RE G (NUT.TX. METABOLIC DIS Drug allergy (disorder) Edema of larynx active [address] [place] [address] [place] Immunizations Combined list of available immunizations from the Department of Defense and Veterans Affairs facilities. Immunization Series Date Given Administered By Site Reaction Lot Number CVX Code Drug Paper Bag Inspector Status Comments Source influenza, injectable, quadrivalent 2021 TRANSCR IBED 158 Unknown complet ed influenza , injectabl e, quadrival ent 10/29/21 Given Ambulat ory Pharmac y influenza, injectable, quadrivalent, contains preservative 1 2021 Unknown, Provider 158 Unknown (UNK) complet ed influenza , injectabl e, quadrival ent, contains preservat da DoD COVID-19, mRNA, LNP-S, PF, 30 mcg/0.3 mL dose, sujey-sucrose 2021 ALUL, () Not Given COVID-19, mRNA, LNP-S, PF, 30 mcg/0.3 mL dose, sujey-sucr ose DoD COVID Vaccine Pfizer 2020 TRANSCR IBED 208 PFIZER complet ed COVID Vaccine Pfizer 11/18/20 Given Ambulat ory Pharmac y SARS-COV-2 (COVID-19) vaccine, mRNA, spike protein, LNP, preservative free, 30 mcg/0.3mL dose 3 2020 Unknown, Provider 208 Pfizer, [employer] (PFR) complet ed SARS-COV- 2 (COVID-19 ) vaccine, mRNA, spike protein, LNP, preservat da free, 30 mcg/0.3mL dose DoD COVID Vaccine Pfizer 2020 TRANSCR IBED 208 PFIZER complet ed COVID Vaccine Pfizer 05/07/20 Given Ambulat ory Pharmac y SARS-COV-2 (COVID-19) vaccine, mRNA, spike protein, LNP, preservative free, 30 mcg/0.3mL dose 2 2020 Unknown, Provider 208 Pfizer, [employer] (PFR) complet ed SARS-COV- 2 (COVID-19 ) vaccine, mRNA, spike protein, LNP, preservat da free, 30 mcg/0.3mL dose DoD COVID Vaccine Pfizer 2020 TRANSCR IBED 208 PFIZER complet ed COVID Vaccine Pfizer 04/16/20 Given Ambulat ory Pharmac y SARS-COV-2 (COVID-19) vaccine, mRNA, spike protein, LNP, preservative free, 30 mcg/0.3mL dose 1 2020 Unknown, Provider 208 Pfizer, [employer] (PFR) complet ed SARS-COV- 2 (COVID-19 ) vaccine, mRNA, spike protein, LNP, preservat da free, 30 mcg/0.3mL dose DoD zoster recombinant 2019 ALUL, () Not Given zoster recombina nt DoD zoster recombinant 2019 ALUL, () Not Given zoster recombina nt DoD influenza, injectable, quadrivalent- pf 2018 150 Seq[employer] complet ed influenza , injectabl e, quadrival ent-pf 11/29/18 Given Ambulat ory Pharmac y typhoid Vi capsular polysaccharid e vac 2018 zzLef t Arm [id number] 101 sanofi pasteur complet ed typhoid Vi capsular polysacch aride vac 09/12/18 Given Ambulat ory Pharmac y poliovirus vaccine, inactivated 2018 zzRig Arm [id number] 10 sanofi pasteur complet ed polioviru s vaccine, inactivat ed 09/12/18 Given Ambulat ory Pharmac y poliovirus vaccine, inactivated 1 2018 Unknown, Provider [id number] 10 Sanofi Pasteur (PMC) complet ed polioviru s vaccine, inactivat ed DoD typhoid Vi capsular polysaccharid e vaccine 1 2018 Unknown, Provider [id number] Sanofi Pasteur (PMC) complet ed typhoid Vi capsular polysacch aride vaccine DoD rabies vaccine, IM 2018 zzLef t Arm [id number] 175 sanofi pasteur complet ed rabies vaccine, IM 05/20/18 Given Ambulat ory Pharmac y rabies vaccine, for intramuscular injection RETIRED CODE 1 2018 Unknown, Provider [id number] 18 Sanofi Pasteur (PMC) complet ed rabies vaccine, for intramusc ular injection RETIRED CODE DoD rabies vaccine, IM 2018 zzLef t Arm [id number] 175 sanofi pasteur complet ed rabies vaccine, IM 05/06/18 Given Ambulat ory Pharmac y rabies vaccine, for intramuscular injection RETIRED CODE 1 2018 Unknown, Provider [id number] 18 Sanofi Pasteur (PMC) complet ed rabies vaccine, for intramusc ular injection RETIRED CODE DoD typhoid Vi capsular polysaccharid e vac 2018 [facility] [id number] 101 sanofi pasteur complet ed typhoid Vi capsular polysacch aride vac 04/18/18 Given Ambulat ory Pharmac y rabies vaccine, IM 2018 zzLef t Arm [id number] 175 sanofi pasteur complet ed rabies vaccine, IM 04/18/18 Given Ambulat ory Pharmac y [facility] IM 2018 [facility] [id number] [address] [facility] Encephali tis IM 04/18/18 Given Ambulat ory Pharmac y rabies vaccine, for intramuscular injection RETIRED CODE 1 2018 Unknown, Provider [id number] 18 Sanofi Pasteur (PMC) complet ed rabies vaccine, for intramusc ular injection RETIRED CODE [facility] typhoid Vi capsular polysaccharid e vaccine 1 2018 Unknown, Provider [id number] 101 Sanofi Pasteur (PMC) complet ed typhoid Vi capsular polysacch aride vaccine DoD [facility] Encephalitis vaccine for intramuscular administratio n 1 2018 Unknown, Provider [id number] 134 Valneva (RADHA) complet ed [facility] Encephali tis vaccine for intramusc ular administr ation DoD tetanus-dipht h toxoids (Td) adult/adol 2018 zzLef t Arm [id number] 09 sanofi pasteur complet ed tetanus-d iphth toxoids (Td) adult/ado l 04/13/18 Given Ambulat ory Pharmac y hepatitis B adult vaccine 2018 zzLef t Arm [id number] 43 GlaxoSmithKli ne complet ed hepatitis B adult vaccine 04/13/18 Given Ambulat ory Pharmac y tetanus and diphtheria toxoids, adsorbed, preservative free, for adult use (2 Lf of tetanus toxoid and 2 Lf of diphtheria toxoid) 1 2018 Unknown, Provider [id number] 09 Sanofi Pasteur (PMC) complet ed tetanus and diphtheri a toxoids, adsorbed, preservat da free, for adult use (2 Lf of tetanus toxoid and 2 Lf of diphtheri a toxoid) DoD hepatitis B vaccine, adult dosage 1 2018 Unknown, Provider [id number] SmithKline (SKB) complet ed hepatitis B vaccine, adult dosage DoD influenza, injectable, quadrivalent- pf 2017 150 sanofi pasteur complet ed influenza , injectabl e, quadrival ent-pf 10/29/17 Given Ambulat ory Pharmac y hepatitis A-hepatitis B vaccine 2015 zzLef t Arm [id number] 104 GlaxoSmithKli ne complet ed hepatitis A-hepatit is B vaccine 12/26/[address] Pharmac y [facility] Encephalitis IM 2015 zzRig Arm [id number] [address] [facility] Encephali tis IM 12/26/15 Given Ambulat ory Pharmac y hepatitis A and hepatitis B vaccine 1 2015 Unknown, Provider [id number] SmithKline (SKB) complet ed hepatitis A and hepatitis B vaccine DoD [facility] Encephalitis vaccine for intramuscular administratio n 1 2015 Unknown, Provider [id number] 134 [employer] (INT) complet ed [facility] Encephali tis vaccine for intramusc ular administr ation DoD influenza, injectable, quadrivalent 2015 zzL t Arm [id number] ID [employer] complet ed influenza , injectabl e, quadrival ent 11/21/15 Given Ambulat ory Pharmac y [facility]itis IM 2015 [place] [facility] [id number] [address] [facility] Encephali tis IM 11/21/15 Given Ambulat ory Pharmac y hepatitis A-hepatitis B vaccine 2015 zzLef t Arm [id number] 104 GlaxoSmithKli ne complet ed hepatitis A-hepatit is B vaccine 11/21/15 Given Ambulat ory Pharmac y typhoid Vi capsular polysaccharid e vac 2015 [facility] [id number] sanofi pasteur complet ed typhoid Vi capsular polysacch aride vac 11/21/15 Given Ambulat ory Pharmac y typhoid Vi capsular polysaccharid e vaccine 1 2015 Unknown, Provider [id number] Sanofi Pasteur (PMC) complet ed typhoid Vi capsular polysacch aride vaccine DoD hepatitis A and hepatitis B vaccine 1 2015 Unknown, Provider [id number] [facility] ([facility] complet ed hepatitis A and hepatitis B vaccine DoD [facility] Encephalitis vaccine for intramuscular administratio n 1 2015 Unknown, Provider [id number] 134 [facility] (INT) complet ed [facility] Encephali tis vaccine for intramusc ular administr ation DoD influenza, injectable, quadrivalent, contains preservative 1 2015 Unknown, Provider [id number] (IDB) complet ed influenza , injectabl e, quadrival ent, contains preservat da DoD influenza, injectable, quadrivalent- pf 2014 150 sanofi pasteur complet ed influenza , injectabl e, quadrival ent-pf 11/23/14 Given Ambulat ory Pharmac y Influenza, seasonal, injectable 2013 ILDA TURNER () Not Given Influenza , seasonal, injectabl e DoD zoster vaccine live 2012 [place] [id number] Merck [employer] complet ed zoster vaccine live 12/16/12 Given Ambulat ory Pharmac y zoster vaccine, live 1 2012 Unknown, Provider [id number] Merck (MSD) complet ed zoster vaccine, live DoD pneumococcal 13-valent conjugate (PCV13) 2012 [id number] complet ed pneumococ jovon 13-valent conjugate (PCV13) 03/17/12 Given Ambulat ory Pharmac y pneumococcal conjugate vaccine, 13 valent 1 2012 Unknown, Provider [id number] Transcribed (TRS) complet ed pneumococ jovon conjugate vaccine, 13 valent DoD influenza, seasonal, injectable 2011 141 Novartis Pharmaceutica ls complet ed influenza , seasonal, injectabl e 11/12/11 Given Ambulat ory Pharmac y influenza virus vaccine, live 2010 TRANSCR IBED 111 Novartis Pharmaceutica ls complet ed influenza virus vaccine, live 12/04/10 Given Ambulat ory Pharmac y influenza, seasonal, injectable 2010 141 Novartis Pharmaceutica ls complet ed influenza , seasonal, injectabl e 12/04/10 Given Ambulat ory Pharmac y influenza virus vaccine, live, attenuated, for intranasal use 3 2010 Unknown, Provider 111 Novartis Pharmaceutica l Kulwinder. (NOV) complet ed influenza virus vaccine, live, attenuate d, for intranasa l use DoD influenza, seasonal, injectable 2009 141 Novartis Pharmaceutica ls complet ed influenza , seasonal, injectabl e 01/10/10 Given Ambulat ory Pharmac y Novel influenza-H1N 1-09, injectable 2009 [facility] [id number] Novartis Pharmaceutica ls complet ed Novel influenza -C7R3-35, injectabl e 03/14/09 Given Ambulat ory Pharmac y Novel influenza-H1N 1-09, injectable 1 2009 Unknown, Provider [id number] Novartis Pharmaceutica l Kulwinder. (NOV) complet ed Novel influenza -M4H3-34, injectabl e DoD influenza virus vaccine,split 2008 zzL t Arm [id number] 15 sanofi pasteur complet ed influenza virus vaccine,s plit 01/10/09 Given Ambulat ory Pharmac y influenza virus vaccine, split virus (incl. purified surface antigen)-reti red CODE 1 2008 Unknown, Provider [id number] 15 Sanofi Pasteur (PMC) complet ed influenza virus vaccine, split virus (incl. purified surface antigen)- retired CODE DoD tetanus, diphtheria, acellular pertu is 2007 [facility] Arm [id number] 115 sanofi pasteur complet ed tetanus, diphtheri a, acellular pertussis 02/03/08 Given Ambulat ory Pharmac y influenza virus vaccine,split 2007 zzLef t Arm [id number] 15 sanofi pasteur complet ed influenza virus vaccine,s plit 02/03/08 Given Ambulat ory Pharmac y influenza virus vaccine, split virus (incl. purified surface antigen)-reti red CODE 1 2007 Unknown, Provider [id number] 15 Sanofi Pasteur ([facility]) complet ed influenza virus vaccine, split virus (incl. purified surface antigen)- retired CODE DoD tetanus toxoid, reduced diphtheria toxoid, and acellular pertu is vaccine, adsorbed 1 2007 Unknown, Provider [id number] 115 Sanofi Pasteur ([facility]) complet ed tetanus toxoid, reduced diphtheri a toxoid, and acellular pertussis vaccine, adsorbed DoD influenza virus vaccine,split 2005 zzLef t Arm [id number] 15 [employer]Kli ne complet ed influenza virus vaccine,s plit 02/05/06 Given Ambulat ory Pharmac y influenza virus vaccine, split virus (incl. purified surface antigen)-reti red CODE 1 2005 Unknown, Provider [id number] 15 [facility] (SKB) complet ed influenza virus vaccine, split virus (incl. purified surface antigen)- retired CODE DoD tetanus-dipht h toxoids (Td) adult/adol 2004 zzUnique ht Arm [id number] 09 sanofi pasteur complet ed tetanus-d iphth toxoids (Td) adult/ado l 01/13/05 Given Ambulat ory Pharmac y influenza virus vaccine,split 2004 zzLef t Arm [id number] 15 sanofi pasteur complet ed influenza virus vaccine,s plit 01/13/05 Given Ambulat ory Pharmac y tetanus and diphtheria toxoids, adsorbed, preservative free, for adult use (2 Lf of tetanus toxoid and 2 Lf of diphtheria toxoid) 1 2004 Unknown, Provider [id number] 09 Sanofi Pasteur ([facility]) complet ed tetanus and diphtheri a toxoids, adsorbed, preservat da free, for adult use (2 Lf of tetanus toxoid and 2 Lf of diphtheri a toxoid) DoD influenza virus vaccine, split virus (incl. purified surface antigen)-reti red CODE 1 2004 Unknown, Provider [id number] 15 Sanofi Pasteur (PMC) complet ed influenza virus vaccine, split virus (incl. purified surface antigen)- retired CODE DoD Vital Signs Combined list of inpatient and outpatient Vital Signs from Department of Defense and Veterans Affairs, ranging from 12 months to all on record, depending upon the facility. Vital Sign Value Date Comments Source No data available for this section Ambulatory Pharmacy Encounters Combined list of: 1) Encounters from Department of Veterans Affairs facilities going back up to thelast 18 months. 2) Encounters from the Department of Defense facilities going back up to 280 months. Location Location Details Encounter Type Encounter Number Reason For Visit Attending Provider ADM Date DC Date Status Disposition Source [address] [place] [address] Daljit GOINS [facility] Non-GME FHI1) TELE CONSULT [id number] refill request JEANETTE CLEMONS 06/[address] [place] [address] Daljit BROWNB [facility]F amily Practic e Non-GME FHI1) [address] [place] [address] Daljit B [facility] Non-GME FHI1) OUTPATIENT [id number] pain in right breast ALINA FRANKS 06/23 Released w/o Limitations [address] [place] [address] Daljit B [facility]F amily Practic e Non-GME FHI1) [address] [place] [address] [employer] [facility] Non-GME FHI1) OUTPATIENT [id number] pap breast exam LESLIE LUEVANO 07/29 Released w/o Limitations [address] [place] [address] Daljit B [facility]F amily Practic e Non-GME FHI1) [address] [place] [address] Daljit B [facility] Non-GME FHI1) OUTPATIENT [id number] LESLIE Suarez 07/31 Released w/o Limitations [address] [place] [address] [employer] [facility]F amily Practic e Non-GME FHI1) [address] [place] [address] [employer] [facility] Non-GME FHI1) OUTPATIENT [id number] hx of migrain es/MADDEN x 4 days/me ds nt working LESLIE LUEVANO 11/20 Released w/o Limitations [address] [place] [address] Daljit B [facility]F amily Practic e Non-GME FHI1) [address] [place] [address] [employer] [place] Non-GME FHI1) TELE CONSULT [id number] RX REFILL HEBER HENRIQUEZ 12/[address] [place] [address] [employer] [facility]F amily Practic e Non-GME FHI1) [address] [place] [address] [employer] [place]) OUTPATIENT [id number] flu shot LILLIAN AUGUSTIN Larry 01/13 Released w/o Limitations [address] [place] [address] [employer] [facility]F amily Practic e Non-GME FHI1) [address] [place] [address] [employer] [place]1) OUTPATIENT [id number] TETANUS SHOT EMILY DELATORRE 01/13 Released w/o Limitations [address] [place] [address] [employer] [facility]F amily Practic e Non-GME FHI1) [address] [place] [address] [employer] [facility] Non-GME FHI1) OUTPATIENT [id number] Pap/Ashley ual exam ALISON CARDOSO 08/18 Released w/o Limitations [address] [place] [address] [employer] [facility]F amily Practic e Non-GME FHI1) [address] [place] [address] [employer] [facility]) OUTPATIENT [id number] fol on labs KEVON GONZALEZ 10/22 Released w/o Limitations [address] [place] [address] [employer] [facility]F amily Practic e Non-GME FHI1) [address] [place] [address] [employer] [facility]1) TELE CONSULT [id number] Med refill - MAU Moreno 03/[address] [place] [address] [employer] [facility]F amily Practic e Non-GME FHI1) [address] [place] [address] [employer] [place]1) OUTPATIENT [id number] pap smear KATELIN DESHPANDE 08/02 Released w/o Limitations [address] [place] [address] [employer] [place]F amily Practic e Non-GME FHI1) [address] [place] [address] [employer] [place]Fam sunny Practice Non-GME FHI1) TELE CONSULT [id number] Lab results . KATELIN DESHPANDE 08/[address] [place], [place] [address]B [facility]F amily Practic e Non-GME FHI1) [address] [place], [place] [address]B [facility]Fam sunny Practice Non-GME FHI1) TELE CONSULT [id number] Pap Smear Notific CLARA Wiseman 08/[address] [place], [place] [address]B [facility]F amily Practic e Non-GME FHI1) [address] [place] [address])([employer]) OUTPATIENT [id number] repeat pap smear ALEX LEMA 09/02 Released w/o Limitations [address] [place], [place] [address]B [facility]G ynecolo gy) [address] [place], [place] [address]B [facility]Fam sunny Practice Non-GME FHI1) OUTPATIENT [id number] occas muscle pain in chest KEVON GONZALEZ 09/02 Released w/o Limitations [address] [place] [address])(F amily Practic e Non-GME FHI1) [address] [place] [address] Daljit B [facility]Fam sunny Practice Non-GME FHI1) TELE CONSULT [id number] rewrite [place]ville - CLARA Yeboah 09/[address] [place] [address])(F amily Practic e Non-GME FHI1) [address] [place], [place] [address]B [facility]Fam sunny Practice Non-GME FHI1) TELE CONSULT [id number] rajendra [facility] TRAVIS Arias 11/[address] [place] [address] Daljit B [facility]F amily Practic e Non-GME FHI1) [address] [place], [place] [address]B [facility]Fam sunny Practice Non-GME FHI1) TELE CONSULT [id number] new prescri gege TRAVIS Arias 12/[address] [place] [address] Daljit B [facility]F amily Practic e Non-GME FHI1) [address] [place] [address] Daljit B [facility]Fam sunny Practice Non-GME FHI1) TELE CONSULT [id number] jagjit mehta SHILA Dooley 03/[address] [place] [address] [employer] [facility]F amily Practic e Non-GME FHI1) [address] [place] [address] Daljit B [place]) TELE CONSULT [id number] estroge ALEX Perla R 07/[address] [place] [address] [employer] [place]G ynecolo gy) [address] [place] [address] Daljit B [facility]Fam sunny Practice Non-GME FHI2) TELE CONSULT [id number] rewrite meds/SHILA Ferrell 08/[address] [place] [address] Daljit B [place]F amily Practic e Non-GME FHI2) [address] [place] [address] Daljit B [facility]) OUTPATIENT [id number] annual wwe - [id number] ALEX LEMA R 08/17 Released w/o Limitations [address] [place] [address] Daljit B [facility]G ynecolo gy) [address] [place] [address] Daljit B [facility]) TELE CONSULT [id number] results ALEX LEMA R 08/[address] [place] [address] Daljit B [facility]G ynecolo gy) [address] [place] [address] [employer] [facility]) TELE CONSULT [id number] unsat HARDIK Byrd 08/[address] [place] [address] Daljit B [facility]G ynecolo gy) [address] [place] [address] [employer] [facility]) TELE CONSULT [id number] US results and new plan of care ALEX LEMA R 09/[address] [place] [address] [employer] [facility]G ynecolo gy) [address] [place] [address] [employer] [facility] sunny Practice Non-GME FHI2) TELE CONSULT [id number] rewrite prescri ritesh/ SHILA Dooley 09/[address] [place] [address] [employer] [facility]F amily Practic e Non-GME FHI2) [address] [place] [address] [employer] [facility]) TELE CONSULT [id number] Occult results call to pt- EDIN Spencer 09/[address] [place] [address] [employer] [facility]G ynecolo gy) Medical Group Daljit BROWNB [place]) OUTPATIENT [id number] repeat pap insuffi trista evelyn HUDDLESTONNER ALEX R 09/25 Released w/o Limitations [facility] Daljit BROWNB [place]G ynecolo gy) [facility] Daljit BROWNB [place]Fam sunny Practice Non-GME FHI2) OUTPATIENT [id number] pusso m under toenail s, [phone] DONAL FINE 02/26 Released w/o Limitations [facility] Daljit [employer]OWNB [place]F amily Practic e Non-GME FHI2) [facility] Daljit [employer] [place]Fam sunny Practice Non-GME FHI1) TELE CONSULT [id number] Rx estela Bland in ANICETO ALMANZAR 02/[address] [place] [address] Daljit BROWNB [facility]F amily Practic e Non-GME FHI1) [facility] Daljit GOINS [place]Nho tt [facility] Fam Res Tm Red) OUTPATIENT [id number] L shoulde r [facility] - KEVON GONZALEZ 04/30 Released w/o Limitations [facility] Daljit [employer]OWN[employer] [place]S cott [facility] Fam Res Tm Red) [facility] Group Daljit BROWNB [place]Phy sical Therapy) OUTPATIENT [id number] TENDONI TIS JUDITH MELENDEZ 05/04 Released w/o Limitations [facility] Daljit BROWNB [place]P hysical Therapy ) [facility] Daljit [facility]OWNB [place]Nho tt [facility] Fam Res Tm Red) TELE CONSULT [id number] Lisa/ needs rx ANICETO ALMANZAR 05/25[facility] Daljit BROWNB [facility]S [facility] Fam Res Tm Red) [facility] Medical [facility] Daljit BROWNB [facility]Phy sical Therapy) OUTPATIENT [id number] JUDITH MELENDEZ 05/29 Released w/o Limitations [facility] Daljit BROWNB [facility]P hysical Therapy ) [facility] Medical [facility] Daljit BROWNB [facility]Sco tt [facility] Fam Res Tm Red) TELE CONSULT [id number] RX Refill - PA NINI Lao 06/11 375[facility] [employer] [place]S cott [facility] Fam Res Tm Red) [address] [place] [address] [employer] [place]War rior Op Med Cln Tm A Ad) OUTPATIENT [id number] recheck and refill on allergi es and meds [phone] KEVON GONZALEZ 07/26 Released w/o Limitations [facility] [employer] [place]W arrior Op Med Cln Tm A Ad) [address] [place] [address] [employer] [place]Occ upational Therapy) OUTPATIENT [id number] LATERAL EPICOND YLITIS (TENNIS ELBOW) RIGHT SOOTS, SEVERINO L 07/31 Released w/o Limitations [facility] [employer] [place]O ccupati onal Therapy ) [address] [place] [address] [employer] [place]) OUTPATIENT [id number] annual ALEX LEMA R 08/13 Released w/o Limitations [facility] [employer] [place]G ynecolo gy) [facility] Medical [facility] [employer] [place]) TELE CONSULT [id number] results ALEX LEMA 08/[address] [place] [address] [employer] [facility]G ynecolo gy) [address] [place] [address] [employer] [place]) OUTPATIENT [id number] walkin for bp ck ALEX LEMA R 08/23 Released w/o Limitations [facility] [employer] [place]G ynecolo gy) [address] [place] [address] [employer] [place]Occ upational Therapy) OUTPATIENT [id number] TORRI ZAMUDIO 08/23 Released w/o Limitations [facility] [employer] [place]O ccupati onal Therapy ) [address] [place] [address] [employer] [facility]) OUTPATIENT [id number] BP Check ALEX LEMA 08/29 Released w/o Limitations [facility] [employer] [facility]G ynecolo gy) [facility] Medical [facility] [employer] [facility]Phy sical Therapy) OUTPATIENT [id number] VINI NORTON 08/29 Released w/o Limitations [address] [place] [address] Daljit [facility] ([facility]P hysical Therapy ) [address] [place] [address] Daljit [facility])(War rior Op Med Cln Tm A Ad) OUTPATIENT [id number] hyperte nsion KEVON GONZALEZ 09/04 Released w/o Limitations [facility] Daljit [facility])(W arrior Op Med Cln Tm A Ad) [address] [place] [address] Daljit [facility])(Car diology (MTF)) OUTPATIENT [id number] Blood Pressur e Isolate d Elevate d LIPOFF, JOMAR I 09/05 Released w/o Limitations [address] [place] [address] Daljit [facility])(C ardiolo gy ([place])) [address] [place] [address] Daljit [facility])(War rior Op Med Cln Tm A Ad) TELE CONSULT [id number] PCM: SHAMIKA Gonzalez; stress test JEANETTE CLEMONS 09/[address] [place] [address] Daljit [facility])(W arrior Op Med Cln Tm A Ad) [address] [place] [address] Daljit [facility])(War rior Op Med Cln Tm A Ad) OUTPATIENT [id number] HTN ISSUES KEVON GONZALEZ 09/06 Released w/o Limitations [address] [place] [address] [facility]it [facility]W arrior Op Med Cln Tm A Ad) [address] [place] [address] Daljit [facility])(Car diology (MTF)) OUTPATIENT [id number] EKG LIPOFF, JOMAR I 09/10 Released w/o Limitations [address] [place] [address] [facility]it [facility])(C ar[place] gy ([place] [address] [place] [address] Daljit [facility])(War rior Op Med Cln Tm A Ad) TELE CONSULT [id number] call back/TRACEY Jackson 09/[address] [place] [address] Daljit [facility])(W arrior Op Med Cln Tm A Ad) [address] [place] [address] Daljit [facility])(War rior Op Med Cln Tm A Ad) OUTPATIENT [id number] f/u HTN KEVON GONZALEZ 09/28 Released w/o Limitations [address] [place] [address] Daljit [facility])(W arrior Op Med Cln Tm A Ad) [facility] Medical [facility] Daljit [facility])(Phy sical Therapy) OUTPATIENT [id number] VINI NORTON 10/05 Released w/o Limitations [facility] Daljit [facility]OWN ([facility]P hysical Therapy ) [address] [place] [address] Daljit [facility])(Car diology (MTF)) OUTPATIENT [id number] Blood Pressur e Isolate d Elevate d DENISEF JOMAR Lyles 10/08 Released w/o Limitations [facility] Daljit [employer]OWN ([facility]C ardiolo gy (MTF)) [facility] Medical [facility] Daljit [facility])(Phy sical Therapy) OUTPATIENT [id number] VINI NORTON 10/09 Released w/o Limitations [facility] Daljit BROWN ([facility]P hysical Therapy ) [address] [place] [address] Daljit [facility])(War rior Op Med Cln Tm A Ad) TELE CONSULT [id number] TRACEY Velázquez 10/[address] [place] [address] [facility]it [facility])(W arrior Op Med Cln Tm A Ad) [address] [place] [address] Daljit [facility])(Phy sical Therapy) TELE CONSULT [id number] Discuss current plan of care ALINA DRISCOLL 10/[address] [place] [address] Daljit [facility])(P hysical Therapy ) [address] [place] [address])(War rior Op Med Cln Tm A Ad) OUTPATIENT [id number] F/U on Cervica l MRI results KEVON GONZALEZ 10/22 Released w/o Limitations [facility] Daljit [facility]OWN[facility]W arrior Op Med Cln Tm A Ad) [facility] Medical [facility]it [facility]War rior Op Med Cln Tm A Ad) OUTPATIENT [id number] f/u [facility] KEVON GONZALEZ 11/16 Released w/o Limitations [address] [place] [address] Daljit [employer]OWN[employer] [facility]W arrior Op Med Cln Tm A Ad) [address] [place] [address] [facility]it [facility])(Fam sunny Med Tm B Non-AD BCC) TELE CONSULT [id number] notes request - MARY ALICE Soto 11/[address] [place], [place] [address]B [facility]F amily Med Tm B Non-AD BCC) [address] [place] [address] Daljit [facility])(Fam sunny Med Tm B Non-AD BCC) OUTPATIENT [id number] fol hand and stomach LAMONTE ACOSTA 01/10 Released w/o Limitations [address] [place] [address])(F amily Med Tm B Non-AD BCC) [address] [place] [address])(Fam sunny Med Tm B Non-AD BCC) OUTPATIENT [id number] ongoing headach e follow up [id number] LAMONTE ACOSTA 07/09 Released w/o Limitations [address] [place] [address])(F amily Med Tm B Non-AD BCC) [address] [place] [address])(Fam sunny Med Tm B Non-AD BCC) TELE CONSULT [id number] Inform of Radiolo gy results MIRANDA OLVERA 07/[address] [place] [address])(F amily Med Tm B Non-AD BCC) [address] [place] [address])([employer]) OUTPATIENT [id number] annual exam [id number] ALEX LEMA 08/21 Released w/o Limitations [address] [place] [address])(G ynecolo gy) [address] [place] [address])([employer]) TELE CONSULT [id number] results ALEX LEMA 08/[address] [place] [address])(G ynecolo gy) [address] [place] [address])(Fam sunny Med Tm B Non-AD BCC) TELE CONSULT [id number] concern s with taking 600mg ibruprf en/dent ist ordered pt already taking celebre x NORMA MERCADO 10/[address] [place] [address] Daljit [facility])(F amily Med Tm B Non-AD BCC) [address] [place] [address] Daljit B [facility]Fam sunny Med Tm B Non-AD BCC) TELE CONSULT [id number] cleeary pt wants labs order for vit-d / [id number] NORMA MERCADO 12/05 [facility]jit [employer] [facility]F amily Med Tm B Non-AD BCC) [facility] [employer]it [employer] ([facility]Fam sunny Med Tm B Non-AD BCC) OUTPATIENT [id number] painful lumps under armpit - [phone] LAMONTE ACOSTA 12/20 Released w/o Limitations [facility] [employer]it [employer] ([facility]F amily Med Tm B Non-AD BCC) [facility] [employer] ([facility]Ob/ [employer]) TELE CONSULT [id number] vit D results ALEX LEMA 12/20 [facility] [employer]it [employer] ([facility]O b/[employer]) [facility] [employer] [facility]Fam sunny Med Tm B Non-AD BCC) TELE CONSULT [id number] Meds refill/ Kelley/ fxs NORMA MERCADO 05/26 [facility] [employer] [employer] [facility]F amily Med Tm B Non-AD BCC) [facility] [employer]it [facility]War rior Op Med Cln Tm A Ad) OUTPATIENT [id number] f/u meds... [id number] LAMONTE ACOSTA 09/08 Released w/o Limitations [facility] [employer]it [employer] [facility]W arrior Op Med Cln Tm A Ad) [facility]it [facility]OWN[facility]) OUTPATIENT [id number] annual wwe - [id number] ALEX LEMA 09/12 Released w/o Limitations [facility] [employer] [facility]G ynecolo gy) [facility] [employer] [facility]) TELE CONSULT [id number] Discuss Bone density results CHARLINE ALARCONKYARA Valdez 09/16 [facility] [employer] [facility]G ynecolo gy) [facility] [employer] [facility]) TELE CONSULT [id number] results ALEX LEMA 09/[address] [place] [address] Group [employer] [facility]G ynecolo gy) [facility] [employer] [facility]) TELE CONSULT [id number] f/u ALEX LEMA 10/20 [facility] [employer]it GOINS [place]G ynecolo gy) Procedures Combined list of: 1) Procedures from Department of Veterans Affairs facilities [facility], not all VA non-surgical procedures are included; 2) All procedures from the Department of Defense facilities. Procedure Procedure Type Code Date Perfomer Comments Sourc e No data available for this section Ambulatory Pharmacy INSUFFLATION OF FALLOPIAN TUBE 1988 [facility] LAPAROSCOPY 1988 [facility] SCREENING [place] SMEAR; OBTAINING, PREPARING AND CONVEYANCE OF CERVICAL OR VAGINAL SMEAR TO LABORATORY 2009 [facility] TELE ASSESS & MGT SRV PROV QUAL NONPHYS HLTH CARE PRO TO EST PAT,PARENT,GUARD NOT ORIG REL ASSESS & MGT SRV PROV W/IN PREV 7 DAYS NOR LEAD ASSESS & MGT SRV/PX W/IN NXT 24 HR/SOON APT;5-10 MIN MED DIS 2009 [facility] INFLUENZA VIRUS VACCINE, TRIVALENT (IIV3), SPLIT VIRUS, 0.5 ML DOSAGE, FOR INTRAMUSCULAR USE 2008 [facility] THERAPEUTIC PROCEDURE, 1 OR MORE AREAS, EACH 15 MINUTES; THERAPEUTIC EXERCISES TO DEVELOP STRENGTH AND ENDURANCE, RANGE OF MOTION AND FLEXIBILITY 2008 DoD PHYSICAL THERAPY RE-EVALUATION 2008 DoD CARDIOVASCULAR STRESS TEST USING MAXIMAL OR SUBMAXIMAL TREADMILL OR BICYCLE EXERCISE, CONTINOUS ELECTROCARDIOGRAPHIC MONITORING, PHARMACOLOGIC STRESS; INTERPRETATION AND REPORT ONLY 2008 DoD PHYSICAL THERAPY EVALUATION 2008 DoD ELECTROCARDIOGRAM, ROUTINE ECG WITH AT LEAST 12 LEADS; INTERPRETATION AND REPORT ONLY 2008 DoD TELE ASSESS & MGT SRV PROV QUAL NONPHYS HLTH CARE PRO TO EST PAT,PARENT,GUARD NOT ORIG REL ASSESS & MGT SRV PROV W/IN PREV 7 DAYS NOR LEAD ASSESS & MGT SRV/PX W/IN NXT 24 HR/SOON APT;5-10 MIN MED DIS 2008 DoD CARDIOVASCULAR STRESS TEST USING MAXIMAL OR SUBMAXIMAL TREADMILL OR BICYCLE EXERCISE,CONTINUOUS ELECTROCARDIOGRAPHIC MONITORING,AND/OR PHARMACOLOGICAL STRESS;W SUPERVISION,INTERPRETA TION AND REPORT 2008 DoD PHYSICAL THERAPY RE-EVALUATION 2008 DoD BLOOD PRESSURE MEASURED (CKD)(DM) 2008 DoD BLOOD PRESSURE MEASURED (CKD)(DM) 2008 DoD SCREENING PAPANICOLAOU SMEAR; OBTAINING, PREPARING AND CONVEYANCE OF CERVICAL OR VAGINAL SMEAR TO LABORATORY 2008 DoD SPLINT, PREFABRICATED, ELBOW 2008 DoD TELE ASSESS & MGT SRV PROV QUAL NONPHYS HLTH CARE PRO TO EST PAT,PARENT,GUARD NOT ORIG REL ASSESS & MGT SRV PROV W/IN PREV 7 DAYS NOR LEAD ASSESS & MGT SRV/PX W/IN NXT 24 HR/SOON APT;5-10 MIN MED DIS 2008 DoD PHYSICAL THERAPY RE-EVALUATION 2008 DoD SELF-CARE/HOME MANAGMENT TRAIN (EG,ACT OF DAILY LIVING (ADL) &COMPENSAT TRAIN,MEAL PREPARATION,SAFETY PROCS,AND INSTRUCT IN USE OF ASST TECHNOLOGY DEV/ADPT EQUIP) DIR ONE-ON-ONE CONT,EA 15 MINUTES 2008 DoD SCREENING PAPANICOLAOU SMEAR; OBTAINING, PREPARING AND CONVEYANCE OF CERVICAL OR VAGINAL SMEAR TO LABORATORY 2007 DoD TELE ASSESS & MGT SRV PROV QUAL NONPHYS HLTH CARE PRO TO EST PAT,PARENT,GUARD NOT ORIG REL ASSESS & MGT SRV PROV W/IN PREV 7 DAYS NOR LEAD ASSESS & MGT SRV/PX W/IN NXT 24 HR/SOON APT;5-10 MIN MED DIS 2007 DoD SCREENING PAPANICOLAOU SMEAR; OBTAINING, PREPARING AND CONVEYANCE OF CERVICAL OR VAGINAL SMEAR TO LABORATORY 2007 [facility] ELECTROCARDIOGRAM, ROUTINE ECG WITH AT LEAST 12 LEADS; WITH INTERPRETATION AND REPORT 2006 DoD SCREENING PAPANICOLAOU SMEAR; OBTAINING, PREPARING AND CONVEYANCE OF CERVICAL OR VAGINAL SMEAR TO LABORATORY 2006 [facility] TETANUS AND DIPHTHERIA TOXOIDS (TD) ADSORBED WHEN ADMINISTERED TO INDIVIDUALS 7 YEARS OR OLDER, FOR INTRAMUSCULAR USE 2004 [facility] INFLUENZA VIRUS VACCINE, TRIVALENT (IIV3), SPLIT VIRUS, 0.5 ML DOSAGE, FOR INTRAMUSCULAR USE 2004 [facility] ELECTROCARDIOGRAM, ROUTINE ECG WITH AT LEAST 12 LEADS; WITH INTERPRETATION AND REPORT 2003 DoD PHYS/OTH QUALIFIED HEALTH SOFT WORK WRAPPER EXAMINER QUALIFIED,EDUCATION,TR SHADYN,LICENSURE/REGULATI ON (WHEN APPLICABLE) EDUC SER RENDERED TO PATS IN A GRP SETTING (EG,,OBESITY,O R DIABETIC INSTRUCT) 2002 [facility] SUPP &MATERIAL (EXCEPT SPECTACLE),PROVID,THE PHYS/OTH QUALIFIED HEALTH SOFT WORK WRAPPER EXAMINER OVER &ABOVE THOSE USUALLY INCLD W THE OFFICE VISIT/OTH SER RENDERED (LIST DRUG,TRAYS,SUPP,OR MATERIAL PROVID) 2002 [facility] APPLICATION OF A MODALITY TO 1 OR MORE AREAS; IONTOPHORESIS, EACH 15 MINUTES 2002 DoD SUPP &MATERIAL (EXCEPT SPECTACLE),PROVID,THE PHYS/OTH QUALIFIED HEALTH SOFT WORK WRAPPER EXAMINER OVER &ABOVE THOSE USUALLY INCLD W THE OFFICE VISIT/OTH SER RENDERED (LIST DRUG,TRAYS,SUPP,OR MATERIAL PROVID) 2002 DoD APPLICATION OF A MODALITY TO 1 OR MORE AREAS; IONTOPHORESIS, EACH 15 MINUTES 2002 DoD APPLICATION OF A MODALITY TO 1 OR MORE AREAS; ULTRASOUND, EACH 15 MINUTES 2002 DoD SUPP &MATERIAL (EXCEPT SPECTACLE),PROVID,THE PHYS/OTH QUALIFIED HEALTH SOFT WORK WRAPPER EXAMINER OVER &ABOVE THOSE USUALLY INCLD W THE OFFICE VISIT/OTH SER RENDERED (LIST DRUG,TRAYS,SUPP,OR MATERIAL PROVID) 2002 DoD SUPP &MATERIAL (EXCEPT SPECTACLE),PROVID,THE PHYS/OTH QUALIFIED HEALTH SOFT WORK WRAPPER EXAMINER OVER &ABOVE THOSE USUALLY INCLD W THE OFFICE VISIT/OTH SER RENDERED (LIST DRUG,TRAYS,SUPP,OR MATERIAL PROVID) 2002 [facility] SCREENING PAPANICOLAOU SMEAR; OBTAINING, PREPARING AND CONVEYANCE OF CERVICAL OR VAGINAL SMEAR TO LABORATORY 2002 [facility] EDUCATIONAL SUPPLIES, SUCH BOOKS, TAPES, AND PAMPHLETS, FOR THE PATIENT'S EDUCATION AT COST TO PHYSICIAN OR OTHER QUALIFIED HEALTH SOFT WORK WRAPPER EXAMINER 2002 [facility] WRIST HAND ORTHOSIS, WRIST EXTENSION CONTROL COCK-UP, NON MOLDED, PREFABRICATED, [id number] 2002 [facility] ONYCHOPLASTY 1992 [facility] OTHER EXCISION OR AVULSION OF CRANIAL AND PERIPHERAL NERVES 1992 [facility] Screening papanicolaou smear; obtaining, preparing and conveyance of cervical or vaginal smear to laboratory 2009 ALEX LEMA [facility] Non-Physician Phone Call To Patient/Provider Brief (5-10min) Non-Physician Phone Call To Patient/Provider Brief (5-10min) [id number] 2009 MIRANDA OLVERA [facility] Influenza Split Virus Vaccine 0.5mL Dosage Intramuscular Preservative Free 2008 LAMONTE ACOSTA [facility] A isted Exercises For ROM Assisted Exercises For ROM [id number] 2008 ALINA DRISCOLL 10 min instruction DoD Physical Therapy Service Re-Evaluation Physical Therapy Service Re-Evaluation [id number] 2008 VINI NORTNO [facility] Cardiac Stre Test Interpretation And Report Only Cardiac Stress Test Interpretation And Report Only [id number] 2008 MAYA CHAVEZ [facility] Physical Therapy Service Evaluation Physical Therapy Service Evaluation [id number] 2008 VINI NORTON [facility] ECG Interpretation And Report Only ECG Interpretation And Report Only [id number] 2008 KERRI BECKER [facility] Non-Physician Phone Call To Patient/Provider Brief (5-10min) Non-Physician Phone Call To Patient/Provider Brief (5-10min) [id number] 2008 JEANETTE CLEMONS [facility] Cardiac Stre Test With Physician Supervision, Interpretation, And Report Cardiac Stress Test With Physician Supervision, Interpretation, And Report [id number] 2008 MEKA NEAL [facility] Physical Therapy Service Re-Evaluation Physical Therapy Service Re-Evaluation [id number] 2008 VINI NORTON [facility] Phys Therapy Education Self Care Training - Per 15 Minutes Phys Therapy Education Self Care Training - Per 15 Minutes [id number] 2008 TORRI ZAMUDIO [facility] Screening papanicolaou smear; obtaining, preparing and conveyance of cervical or vaginal smear to laboratory 2008 ALEX LEMA [facility] Splint, prefabricated, elbow 2008 SOSEVERINO ALCANTAR [facility] Splint, prefabricated, wrist or ankle 2008 SOSEVERINO ALCANTAR [facility] Occupational Therapy Evaluation Occupational Therapy Evaluation [id number] 2008 SOSEVERINO ALCANTAR [facility] Non-Physician Phone Call To Patient/Provider Brief (5-10min) Non-Physician Phone Call To Patient/Provider Brief (5-10min) [id number] 2008 NINI JOE [facility] Physical Therapy Service Re-Evaluation Physical Therapy Service Re-Evaluation [id number] 2008 JUDITH MELENDEZ [facility] Phys Therapy Education Self Care Training - Per 15 Minutes Phys Therapy Education Self Care Training - Per 15 Minutes [id number] 2008 JUDITH MELENDEZ [facility] Physical Therapy Service Evaluation Physical Therapy Service Evaluation [id number] 2008 JUDITH MELENDEZ [facility] Screening papanicolaou smear; obtaining, preparing and conveyance of cervical or vaginal smear to laboratory 2007 ALEX LEMA [facility] Non-Physician Phone Call To Patient/Provider Brief (5-10min) Non-Physician Phone Call To Patient/Provider Brief (5-10min) [id number] 2007 SHILA MORALES [facility] Screening papanicolaou smear; obtaining, preparing and conveyance of cervical or vaginal smear to laboratory 2007 ALEX LEMA Non-Physician Phone Call To Patient/Provider Brief (5-10min) Non-Physician Phone Call To Patient/Provider Brief (5-10min) [id number] 2007 SHILA MORALES [facility] Electrocardiogram Electrocardiogram 79044 09/02 KEVON GONZALEZ [facility] Screening papanicolaou smear; obtaining, preparing and conveyance of cervical or vaginal smear to laboratory 2006 NINI JOE [facility] Influenza Split Virus Vaccine 0.5mL Dosage Intramuscular 2004 AUGUSTIN SNYDER [facility] Immunization Administration By Injection, One Vaccine Immunization Administration By Injection, One Vaccine 35374 2004 EMILY KENT Td Vaccine Seven Years Of Age And Above Td Vaccine Seven Years Of Age And Above 15052 2004 EMILY KENT Social History Combined list of available smoking, tobacco, and other social history from Department of Defense and Veterans Affairs facilities. Social History Type Response Date Comment Sour e This section is an empty social history section. DoD Assessment and Plan Combined list of future care activities from Department of Defense and Veterans Affairs facilities (e.g., assessment and plan notes, appointments, orders, and referrals). Additional future care activities may be listed in the Plan of Care section. Result Assessment and Plan Date Source Assessment and Plan No data available for this section 03/16/2024 Ambulatory Pharmacy Functional Status Combined list of recent functional and cognitive assessments recorded at [facility] of Defense and Veterans Affairs (VA).VA Functional Miles Measurement (FIM) Scale: 1 = Total Assistance (Subject = 0% +), 2 = Maximal Assistance (Subject = 25% +), 3 = Moderate Assistance (Subject = 50% +), 4 = Minimal Assistance (Subject = 75% +), 5 = Supervision, 6 = Modified Miles (Device), 7 = Complete Miles (Timely, Safely). Assessment Date/Time Source Assessment Type Assessment Skill Assessment Score Assessment Details No data available for this section
--- OUTSIDE RECORDS SUMMARY | 2024-03-16 15:42 | XMS_ITS | Referral Summary ---
Author Organization [facility] Address [address] [place] [address] Care Team Providers Care Timber Feller Name Role Phone Gorge Siddiqui MD Primary Care Provider Allergies Active Allergy Reactions Criticality Noted Date Comments Hazelnut Unknown 02/22/1978 Medications amitriptyline (ELAVIL) 25 mg tablet TAKE 1 TABLET AT BEDTIME. Active calcium carbonate-vitam in D3 (Calcium 600 with Vitamin D3) 1,500 mg (600 mg elemental)-500 unit capsule daily Active cetirizine (ZyrTEC) 10 mg tablet 06/01/2022 Active clobetasoL (TEMOVATE) 0.05 % external solution 05/06/2022 Active estradioL (Estrace) 0.01 % (0.1 mg/gram) vaginal cream Insert into the vagina 05/23/2015 Active fluticasone propionate (FLONASE) 50 mcg/actuation nasal spray 06/01/2022 Active montelukast (Singulair) 10 mg tablet daily Active cwkjxqnk-rds-JC -lycopen-lutein (Centrum Silver) 0.4 mg-300 mcg- 250 mcg tablet daily Active pantoprazole DR (Protonix) 40 mg EC tablet daily Active Elidel 1 % cream 06/01/2022 Active scopolamine 1 mg over 3 days patch 3 day 04/28/2022 Active SUMAtriptan (Imitrex) 100 mg tablet TAKE 1 TABLET AT ONSET OF MIGRAINE HEADACHE. MAY REPEAT IN 2 HOURS IF NEEDED. Active aspirin (Adult Low Dose Aspirin) 81 mg enteric coated tablet 03/17/2023 Active rosuvastatin (CRESTOR) 5 mg tablet Take 1 tablet (5 mg total) by mouth daily 04/20/[address] (VOLTAREN) 75 mg EC tablet Take 1 tablet (75 mg total) by mouth 2 (two) times a day 60 tablet 06/21/2023 06/21/19 25 Active Active Problems Problem Noted Date Diagnosed Date Elevated blood pressure read ing without diagnosis of hypertension 12/10/2016 Heart murmur 11/22/2014 Prolapse of vaginal wall 10/04/2014 Ascending aortic aneurysm 11/21/2013 Abnormal result of cardiovascular function study 07/14/2012 Aortic valve regurgitation 06/23/2012 Chest pain 06/23/2012 Surgical follow-up care 06/16/2012 Arthralgia of hip 04/01/2012 Encounter for preventive health examination 10/23 Immunizations Name Administration Dates Next Due Influenza, Quadrivalent, Hig h Dose, Preservative Free, Intrr 10/26/2019 Influenza, Quadrivalent, Spl it, Intramuscular 12/02/2016,11/22/2014 Influenza, Trivalent, IM (MDV) 10/29/2017,2012,12/02/2011 Pneumococcal Conjugate PCV 13 03/17/2012 Tdap 09/21/2012 Social History Tobacco Use Types Packs/Day Years Used Date Smoking Tobacco: Former Cigarettes 0.1 2.1 0 10/23/1972 - 11/22/1974 Smokeless Tobacco: Never Tobacco Cessation:Counseling Given: Not Answered Comments:social pack a week smoker Comments Unknown Sex and Gender Information Value Date Recorded Sex Assigned at Not on file 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 Gender Identity Not on file Sexual Orientation Not on file Last Filed Vital Signs Vital Sign Reading Time Taken Comments Blood Pressure 124/75 07/08/2017 1:39 PM CDT Pulse 61 07/08/2017 1:39 PM CDT Temperature 36.5 ??C (97.7 ??F) 11/28/2019 2:58 PM CD T Respiratory Rate - - Oxygen Saturation 97% 07/08/2017 1:39 PM CDT Inhaled Oxygen Concentration - - Weight 72.8 kg (160 lb 9.6 oz) 06/21/2023 1:02 P M CDT Height 173 cm (5' 8.11 ) 06/21/2023 1:02 PM CDT Body Mass Index 24.34 06/21/2023 1:02 PM CDT Plan of Treatment Not on file Insurance FOR LIFE MEDICARE MEDICARE FOR LIFE MEDICARE FOR LIFE Care Teams Timber Feller Relationship Specialty Start Date End Date Gorge Siddiqui MD [address] [place] [address] PCP - General 12/10/16
--- OUTSIDE RECORDS SUMMARY | 2024-03-16 15:42 | XMS_ITS | Clinical Summary ---
Author Organization [facility] Address [address] [place] [address] Care Team Providers Care Scalper Operator Name Role Phone Gorge Siddiqui MD Primary [...] montelukast (Singulair) 10 mg tablet daily Active evyhzrsx-ouw-DY -lycopen-lutein (Centrum Silver) 0.4 mg-300 mcg- 250 [...] Pneumococcal Conjugate PCV 13 03/17/2012 Tdap 09/21/2012 Surgical History Surgery Date Site/Laterality Comments TOTAL HIP ARTHROPLASTY Hip Replacement - (Added by TW Conv) JOINT REPLACEMENT 2012 Medical History Medical History Date Comments Intractable migraine without aura with status migrainosus Common Migraine (Without Aur a) With Intractable Migraine With Status Migrainosus - (Added by TW Conv) Personal history of other di seases of the musculoskeletal system and connective tissue History of osteopenia - (Add ed by TW Conv) Aftercare following joint re placement surgery Aftercare following joint re placement - (Added by TW Conv) Family History Medical History Relation Name Comments Heart disease Father Ben Ma Family hi story of cardiac disorder - (Added by TW Conv) Hypertension Father Ben Ma COPD Mother Willow Ma Heart disease Mother Willow Ma Family history of cardiac disorder - (Added by TW Conv) Hypertension Mother Willow Ma Obesity Mother Willow Ma Cancer Mother's Sister Jayna Magaña Diabetes Other 1 Diabetes Mellit us - (Added by TW Conv) Stroke Other 2 Stroke Syndrome - (Added by TW Conv) Cancer Other 3 Cancer - (Added by TW Conv) COPD Other 4 Chronic Obstruc tive Pulmonary Disease - (Added by TW Conv) Heart failure Other 5 Congestive Hea rt Failure - (Added by TW Conv) Diabetes Paternal Grandfather Jesus Ma Alcohol abuse Sister Enedelia Ma Relation Name Status Comments Father Ben Ma Mother Willow Ma Mother's Sister Jayna Magaña Other 1 Other 2 Other 3 Other 4 Other 5 Paternal Grandfather Jesus Ma Sister Enedelia Ma Social History Tobacco Use Types Packs/Day Years Used Date Smoking Tobacco: Former Cigarettes 0.1 2.1 0 10/23/1972 - 11/22/1974 Smokeless Tobacco: Never Tobacco Cessation:Counseling Given: Not Answered Comments:social pack a week smoker Comments Unknown Sex and Gender Information Value Date Recorded Sex Assigned at Not on file 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 Gender Identity Not on file Sexual Orientation Not on file Obstetrics History Last Filed Vital Signs Vital Sign Reading [...] 06/21/2023 1:02 PM CDT Plan of Treatment Health Maintenance Due Date Last Done Comments Breast Cancer Screening-Mammogram 1954 Colon Cancer Screening-Colonoscopy 1954 Depression Screening 1954 Fall Risk Assessment 1954 Hepatitis C Screening 1954 Osteoporosis Screening-Bone Density Scan 1954 Hepatitis B Screening 1972 Zoster Vaccine (1 of 2) 2004 Pneumococcal vaccine 65+ (2 of 2 - PPSV23 or PCV20) 10/04/2019 03/17/2012 Well Visit 65+ 10/04/2019 DTaP/Tdap/Td Vaccine (2 - Td or Tdap) 09/21/2022 09/21/2012 Influenza Vaccine (#1) 2023 , 10/29/2017, 12/02/2016, Additional history exists Insurance [facility] [employer] LIFE MEDICARE MEDICARE FOR LIFE MEDICARE [facility] Address: [address] [address] [place] [address] [facility] [employer] Care Teams Scalper Operator Relationship Specialty Start Date End Date Gorge Siddiqui MD [address] [place] [address] PCP - General 12/10/16
--- OUTSIDE RECORDS SUMMARY | 2024-03-16 15:42 | XMS_ITS | Clinical Summary ---
Author Organization [facility] Address [address] [place] [address]. [place], [place] [id number] [place] [address] Care Team Providers Care Pbx Technician Name Role Phone Unavailable Primary Care Provider Unavailabl e Social History Tobacco Use Types Packs/Day Years Used Date Smoking Tobacco: Never Assessed Comments Unknown Sex and Gender Information Value Date Recorded Sex Assigned at Not on file Legal Sex Female 4:39 PM CDT Gender Identity Not on file Sexual Orientation Not on file Plan of Treatment Health Maintenance Due Date Last Done Comments Colorectal Cancer Screening Colonoscopy (10 Years) 1954 Hepatitis C 1972 DTaP, Tdap and Td Vaccines ( 1 - Tdap) 1973 Mammogram Screening 1994 Zoster Vaccines (1 of 2) 2004 Dexa Scan (General) 10/04/2019 Pneumococcal Vaccine: 65+ Ye ars (1 of 1 - PCV) 10/04/2019 COVID-19 Vaccine (2023-2 5 season) 2023 Influenza Adult (#1) 2023 RSV Immunization or 60+ Years (1 - 1-dose 75+ series) 2029 Meningococcal Vaccine Aged Out No mario tamica eligible based on patient's age to complete this topic RSV Immunizations Under 20 Months Aged Out No longer eligible based on patient's age to complete this topic
== END 2024-03-14 07:41 | disposition home or self-care (01) ==
PROVIDERS: PCP Family Medicine; Visit Provider Family Medicine
DX: Z12.31 Encounter for screening mammogram for malignant neoplasm of breast (principal)
CPT/HCPCS: 77063; 77067

== ENCOUNTER 2024-03-23 14:43 | Outpatient (CLI) | payer MEDICARE, OTHER, SELFPAY ==
--- NOTE | 2024-03-23 15:12 | ECG_ITS ---
Test Date: 2024-03-23 15:23:46 Measurements Intervals [place] Rate: 62 P: 46 MN: 176 QRS: 8 QRSD: 82 T: 49 QT: 418 QTc: 426 Interpretive Statements SINUS RHYTHM SEPTAL MYOCARDIAL INFARCTION , OF INDETERMINATE AGE [40+ ms Q WAVE IN V1/V2] No previous ECG available for comparison Electronically Signed On 03-24-2024 14:14:29 GAS TREATER by Romi Nazario M.D.
--- OUTSIDE RECORDS SUMMARY | 2024-03-23 15:17 | XMS_ITS | Referral Summary ---
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
--- OUTSIDE RECORDS SUMMARY | 2024-03-23 15:17 | XMS_ITS | Clinical Summary ---
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
--- OUTSIDE RECORDS SUMMARY | 2024-03-23 15:17 | XMS_ITS | Continuity of Care Document ---
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 02/01/2024 [id number] 4 2023 10 [facility] Daljit GOINS ([facility]) ALPRAZOLAM (ALPRAZOLAM ), 0.5MG, TABLET, ORAL, ACTAVIS ELIZABE, 500 ea. BOTTLE Cancele d [id number] : 2023 0 Pharmac y Data Transac tion Service Facilit y ALPRAZOLAM (ALPRAZOLAM ), 0.5MG, TABLET, ORAL, ACTAVIS ELIZABE, 500 ea. BOTTLE Active [id number] 4 2023 10 Pharmac y Data Transac [...] as directed .Obtain advice for OTCs. 02/29/2024 [id number] 4 [address] [place] [address] Daljit BROWN ([facility]) CETIRIZINE (U/D) 10 MG ORAL TAB May cause drowsine ss.Obtai n advice for OTCs. 02/29/2024 [id number] 4 [address] [place] [address] Daljit GOINS ([facility]) cetirizine 10 mg tablet 10 mg, Oral, [...] whole.Do not take if . Active 06/20/2024 [id number] 2023 60 [facility] Daljit GOINS ([facility]) diclofenac sodium EC 75 mg tablet 75 [...] exactly as directed .For the nose. 02/29/2024 [id number] 4 [address] [place] [address] Daljit GOINS ([facility]) fluticasone 50 mcg/inh nasal spray [16g] See [...] ORAL, AMNEAL PHARMACE, 100 ea. BOTTLE Active [id number] 2023 20 Pharmac y Data Transac tion Service Facilit y IBUPROFEN (ibuprofen) , 800 MG, TABLET, ORAL, AUROBINDO PHARM, 500 ea. BOTTLE Cancele d [id number] : 2023 0 Pharmac y Data Transac tion Service Facilit y loratadine 10 mg oral tablet TAKE ONE TABLET BY MOUTH EVERY DAY, # 90 EA, 3 total refill(s ), Acute Complet ed 10/27/2022 90.0 Ambulat ory Pharmac y MONTELUKAST (U/D) 10 MG ORAL TAB Take or use exactly as directed . 02/29/2024 [id number] 4 2023 90 [facility] Daljit GOINS ([facility]) montelukast 10 mg tablet 10 mg, Oral, [...] AUROBINDO PHARM, 30 ea. BLIST PACK Active [id number] 2023 20 Pharmac y Data Transac [...] 1% Topical For external use. Active 08/16/2024 [id number] 4 [address] [place] [address] Daljit [facility] ([facility]) Pimecrolimu s (Elidel Eq.) Cream 1% Topical For external use. 02/02/2024 [id number] 3 [address] [place] [address] ([facility]) pimecrolimu s 1% cream [100g] See Instruct [...] ORAL, NOVADOZ PHARMAC, 1000 ea. BOTTLE Active [id number] 4 2023 90 Pharmac y Data Transac tion Service Facilit y SUMAtriptan (U/D) 100 MG ORAL TAB Take or use exactly as directed . 02/29/2024 [id number] 4 [address] [place] [address] ([facility]) SUMAtriptan 100 mg oral tablet TAKE ONE [...] allergy (disorder) Edema of larynx active [address] [place] [address] ([facility]) Immunizations Combined list of available immunizations from the Department of Defense and Veterans Affairs facilities. Immunization Series Date Given Administered By Site Reaction Lot Number CVX Code Drug Cad Operator Status Comments Source influenza, injectable, quadrivalent 2021 [...] dose 3 2020 Unknown, Provider 208 Pfizer, [employer] (PFR) complet ed SARS-COV- 2 (COVID-19 ) vaccine, mRNA, spike protein, LNP, preservat da free, 30 mcg/0.3mL dose DoD COVID Vaccine Pfizer 2020 TRANSCR IBED 208 PFIZER complet ed COVID Vaccine Pfizer 05/07/20 Given Ambulat ory Pharmac y SARS-COV-2 (COVID-19) vaccine, mRNA, spike protein, LNP, preservative free, 30 mcg/0.3mL dose 2 2020 Unknown, Provider 208 Pfizer, [employer] (PFR) complet ed SARS-COV- 2 (COVID-19 ) vaccine, mRNA, spike protein, LNP, preservat da free, 30 mcg/0.3mL dose DoD COVID Vaccine Pfizer 2020 TRANSCR IBED 208 PFIZER complet ed COVID Vaccine Pfizer 04/16/20 Given Ambulat ory Pharmac y SARS-COV-2 (COVID-19) vaccine, mRNA, spike protein, LNP, preservative free, 30 mcg/0.3mL dose 1 2020 Unknown, Provider 208 Pfizer, [employer] (PFR) complet ed SARS-COV- 2 (COVID-19 ) [...] polysaccharid e vac 2018 zzLef t Arm [id number] 101 sanofi pasteur complet ed typhoid Vi capsular polysacch aride vac 09/12/18 Given Ambulat ory Pharmac y poliovirus vaccine, inactivated 2018 zzRig Arm [id number] 10 sanofi pasteur complet ed polioviru s vaccine, inactivat ed 09/12/18 Given Ambulat ory Pharmac y poliovirus vaccine, inactivated 1 2018 Unknown, Provider [id number] 10 Sanofi Pasteur (PMC) complet ed polioviru s vaccine, inactivat ed DoD typhoid Vi capsular polysaccharid e vaccine 1 2018 Unknown, Provider [id number] 101 Sanofi Pasteur (PMC) complet ed typhoid Vi capsular polysacch aride vaccine DoD rabies vaccine, IM 2018 zzLef t Arm [id number] 175 sanofi pasteur complet ed rabies vaccine, IM 05/20/18 Given Ambulat ory Pharmac y rabies vaccine, for intramuscular injection RETIRED CODE 1 2018 Unknown, Provider [id number] 18 Sanofi Pasteur (PMC) complet ed rabies vaccine, for intramusc ular injection RETIRED CODE DoD rabies vaccine, IM 2018 zzLef t Arm [id number] 175 sanofi pasteur complet ed rabies vaccine, IM 05/06/18 Given Ambulat ory Pharmac y rabies vaccine, for intramuscular injection RETIRED CODE 1 2018 Unknown, Provider [id number] 18 Sanofi Pasteur (PMC) complet ed rabies vaccine, for intramusc ular injection RETIRED CODE DoD typhoid Vi capsular polysaccharid e vac 2018 [facility] [id number] 101 sanofi pasteur complet ed typhoid Vi capsular polysacch aride vac 04/18/18 Given Ambulat ory Pharmac y rabies vaccine, IM 2018 zzLef t Arm [id number] 175 sanofi pasteur complet ed rabies vaccine, IM 04/18/18 Given Ambulat ory Pharmac y Swiss Encephalitis IM 2018 [facility] [id number] 134 Valneva complet ed Swiss Encephali tis IM 04/18/18 Given Ambulat ory Pharmac y rabies vaccine, for intramuscular injection RETIRED CODE 1 2018 Unknown, Provider [id number] 18 Sanofi Pasteur (PMC) complet ed rabies vaccine, for intramusc ular injection RETIRED CODE [facility] typhoid Vi capsular polysaccharid e vaccine 1 2018 Unknown, Provider [id number] 101 Sanofi Pasteur (PMC) complet ed typhoid Vi capsular polysacch aride vaccine DoD Swiss Encephalitis vaccine for intramuscular administratio n 1 2018 Unknown, Provider [id number] 134 Valneva (RADHA) complet ed Swiss Encephali tis vaccine for intramusc ular administr ation DoD tetanus-dipht h toxoids (Td) adult/adol 2018 zzLef t Arm [id number] 09 sanofi pasteur complet ed tetanus-d iphth [...] of diphtheria toxoid) 1 2018 Unknown, Provider [id number] 09 Sanofi Pasteur (PMC) complet ed tetanus [...] vaccine 12/26/15 Given Ambulat ory Pharmac y Swiss Encephalitis IM 2015 zzRig Arm [id number] 134 Valneva complet ed Swiss Encephali tis IM 12/26/15 Given Ambulat ory Pharmac y hepatitis A and hepatitis B vaccine 1 2015 Unknown, Provider [id number] [employer] (SKB) complet ed hepatitis A and hepatitis B vaccine DoD Swiss Encephalitis vaccine for intramuscular administratio n 1 2015 Unknown, Provider [id number] 134 [employer] (INT) complet ed Swiss Encephali tis vaccine for intramusc ular administr ation DoD influenza, injectable, quadrivalent 2015 zzL t Arm [id number] ID [employer]ical complet ed influenza , injectabl e, quadrival ent 11/21/15 Given Ambulat ory Pharmac y Swiss Encephalitis [facility] [id number] 134 Valneva complet ed Swiss Encephali tis IM 11/21/15 Given Ambulat ory Pharmac y hepatitis A-hepatitis B vaccine 2015 zzLef t Arm [id number] 104 GlaxoSmithKli ne complet ed hepatitis A-hepatit is B vaccine 11/21/15 Given Ambulat ory Pharmac y typhoid Vi capsular polysaccharid e vac 2015 [facility] [id number] sanofi pasteur complet ed typhoid Vi capsular polysacch aride vac 11/21/15 Given Ambulat ory Pharmac y typhoid Vi capsular polysaccharid e vaccine 1 2015 Unknown, Provider [id number] Sanofi Pasteur (PMC) complet ed typhoid Vi capsular polysacch aride vaccine DoD hepatitis A and hepatitis B vaccine 1 2015 Unknown, Provider [id number] [facility] complet ed hepatitis A and hepatitis B vaccine DoD Swiss Encephalitis vaccine for intramuscular administratio n 1 2015 Unknown, Provider [id number] 134 [facility] (INT) complet ed Swiss Encephali tis vaccine for intramusc ular administr [...] injectabl e DoD zoster vaccine live 2012 [facility] [id number] [employer] complet ed zoster vaccine live 12/16/12 Given Ambulat ory Pharmac y zoster vaccine, live 1 2012 Unknown, Provider [id number] 121 Merck (MSD) complet ed zoster vaccine, live DoD pneumococcal 13-valent conjugate (PCV13) 2012 [id number] complet ed pneumococ jovon 13-valent conjugate (PCV13) 03/17/12 Given Ambulat ory Pharmac y pneumococcal conjugate vaccine, 13 valent 1 2012 Unknown, Provider [id number] Transcribed (TRS) complet ed pneumococ jovon [...] Pharmac y Novel influenza-H1N 1-09, injectable [facility] [id number] Novartis Pharmaceutica ls complet ed Novel influenza -L8C2-91, injectabl e 03/14/09 Given Ambulat ory Pharmac y Novel influenza-H1N 1-09, injectable 1 2009 Unknown, Provider [id number] Novartis Pharmaceutica l Kulwinder. (NOV) complet ed Novel influenza -B2X8-66, injectabl e DoD influenza virus vaccine,split 2008 zzL t Arm [id number] 15 sanofi pasteur complet ed influenza virus vaccine,s plit 01/10/09 Given Ambulat ory Pharmac y influenza virus vaccine, split virus (incl. purified surface antigen)-reti red CODE 1 2008 Unknown, Provider [id number] 15 Sanofi Pasteur (PMC) complet ed influenza virus vaccine, split virus (incl. purified surface antigen)- retired CODE DoD tetanus, diphtheria, acellular pertu is 2007 Kel Arm [id number] 115 sanofi pasteur complet ed tetanus, diphtheri a, acellular pertussis 02/03/08 Given Ambulat ory Pharmac y influenza virus vaccine,split 2007 zzLef t Arm [id number] 15 sanofi pasteur complet ed influenza virus vaccine,s plit 02/03/08 Given Ambulat ory Pharmac y influenza virus vaccine, split virus (incl. purified surface antigen)-reti red CODE 1 2007 Unknown, Provider [id number] 15 Sanofi Pasteur ([facility]) complet ed influenza virus vaccine, split virus (incl. purified surface antigen)- retired CODE DoD tetanus toxoid, reduced diphtheria toxoid, and acellular pertu is vaccine, adsorbed 1 2007 Unknown, Provider [id number] 115 Sanofi Pasteur ([facility]) complet ed tetanus toxoid, reduced diphtheri a toxoid, and acellular pertussis vaccine, adsorbed DoD influenza virus vaccine,split 2005 zzLef t Arm [id number] 15 [employer] Flor[employer] ne complet ed influenza virus vaccine,s plit 02/05/06 Given Ambulat ory Pharmac y influenza virus vaccine, split virus (incl. purified surface antigen)-reti red CODE 1 2005 Unknown, Provider [id number] 15 [facility] (SKB) complet ed influenza virus vaccine, split virus (incl. purified surface antigen)- retired CODE DoD tetanus-dipht h toxoids (Td) adult/adol 2004 zzUnique ht Arm [id number] 09 sanofi pasteur complet ed tetanus-d iphth toxoids (Td) adult/ado l 01/13/05 Given Ambulat ory Pharmac y influenza virus vaccine,split 2004 zzLef t Arm [id number] 15 sanofi pasteur complet ed influenza virus vaccine,s plit 01/13/05 Given Ambulat ory Pharmac y tetanus and diphtheria toxoids, adsorbed, preservative free, for adult use (2 Lf of tetanus toxoid and 2 Lf of diphtheria toxoid) 1 2004 Unknown, Provider [id number] 09 Sanofi Pasteur ([facility]) complet ed tetanus and diphtheri a toxoids, adsorbed, preservat da free, for adult use (2 Lf of tetanus toxoid and 2 Lf of diphtheri a toxoid) DoD influenza virus vaccine, split virus (incl. purified surface antigen)-reti red CODE 1 2004 Unknown, Provider [id number] 15 Sanofi Pasteur (PMC) complet ed influenza [...] ADM Date DC Date Status Disposition Source [address] [place] [address] Daljit GOINS [facility] Non-GME FHI1) TELE CONSULT [id number] refill request JEANETTE CLEMONS 06/[address] [place] [address] Daljit BROWNB [facility]F amily Practic e Non-GME FHI1) [address] [place] [address] Daljit B [facility] Non-GME FHI1) OUTPATIENT [id number] pain in right breast ALINA FRANKS 06/23 Released w/o Limitations [address] [place] [address] Daljit B [facility]F amily Practic e Non-GME FHI1) [address] [place] [address] [employer] [facility] Non-GME FHI1) OUTPATIENT [id number] pap breast exam LESLIE LUEVANO 07/29 Released w/o Limitations [address] [place] [address] Daljit B [facility]F amily Practic e Non-GME FHI1) [address] [place] [address] Daljit B [facility] Non-GME FHI1) OUTPATIENT [id number] LESLIE Suarez 07/31 Released w/o Limitations [address] [place] [address] [employer] [facility]F amily Practic e Non-GME FHI1) [address] [place] [address] [employer] [facility] Non-GME FHI1) OUTPATIENT [id number] hx of migrain es/MADDEN x 4 days/me ds nt working LESLIE LUEVANO 11/20 Released w/o Limitations [address] [place] [address] Daljit B [facility]F amily Practic e Non-GME FHI1) [address] [place] [address] [employer] ([facility] Non-GME FHI1) TELE CONSULT [id number] RX REFILL HEBER HENRIQUEZ 12/[address] [place] [address] [employer] [facility]F amily Practic e Non-GME FHI1) [address] [place] [address] [employer] ([facility] Non-GME FHI1) OUTPATIENT [id number] flu shot LILLIAN AUGUSTIN Larry 01/13 Released w/o Limitations [address] [place] [address] [employer] [facility]F amily Practic e Non-GME FHI1) [address] [place] [address] [employer] ([facility] Non-GME FHI1) OUTPATIENT [id number] TETANUS SHOT EMILY DELATORRE 01/13 Released w/o Limitations [address] [place] [address] [employer] [facility]F amily Practic e Non-GME FHI1) [address] [place] [address] [employer] [facility] Non-GME FHI1) OUTPATIENT [id number] Pap/Ashley ual exam ALISON CARDOSO 08/18 Released w/o Limitations [address] [place] [address] [employer] [facility]F amily Practic e Non-GME FHI1) [address] [place] [address] [employer] [facility] Non-GME FHI1) OUTPATIENT [id number] fol on labs KEVON GONZALEZ 10/22 Released w/o Limitations [address] [place] [address] [employer] [facility]F amily Practic e Non-GME FHI1) [address] [place] [address] [employer] [facility] Non-GME FHI1) TELE CONSULT [id number] Med refill - MAU Moreno 03/[address] [place] [address] [employer] [facility]F amily Practic e Non-GME FHI1) [address] [place] [address] [employer] ([facility])([facility] Non-GME FHI1) OUTPATIENT [id number] pap smear KATELIN DESHPANDE 08/02 Released w/o Limitations [address] [place] [address] [employer] ([facility])(F amily Practic e Non-GME FHI1) [address] [place] [address] [employer] ([facility])(Fam sunny Practice Non-GME FHI1) TELE CONSULT [id number] Lab results . KATELIN DESHPANDE 08/[address] [place], [place] [address]B [facility]F amily Practic e Non-GME FHI1) [address] [place], [place] [address]B [facility]Fam sunny Practice Non-GME FHI1) TELE CONSULT [id number] Pap Smear Notific CLARA Wiseman 08/[address] [place], [place] [address]B [facility]F amily Practic e Non-GME FHI1) [address] [place] [address])([employer]) OUTPATIENT [id number] repeat pap smear ALEX LEMA 09/02 Released w/o Limitations [address] [place], [place] [address]B [facility]G ynecolo gy) [address] [place], [place] [address]B [facility]Fam sunny Practice Non-GME FHI1) OUTPATIENT [id number] occas muscle pain in chest KEVON GONZALEZ 09/02 Released w/o Limitations [address] [place] [address])(F amily Practic e Non-GME FHI1) [address] [place] [address] Daljit B [facility]Fam sunny Practice Non-GME FHI1) TELE CONSULT [id number] rewrite [place] - CLARA Yeboah 09/[address] [place] [address])(F amily Practic e Non-GME FHI1) [address] [place], [place] [address]B [facility]Fam sunny Practice Non-GME FHI1) TELE CONSULT [id number] rajendra [facility] TRAVIS Arias 11/[address] [place] [address] Daljit B [facility]F amily Practic e Non-GME FHI1) [address] [place], [place] [address]B [facility]Fam sunny Practice Non-GME FHI1) TELE CONSULT [id number] new prescri gege TRAVIS Arias 12/[address] [place] [address] Daljit B [facility]F amily Practic e Non-GME FHI1) [address] [place] [address] Daljit B [facility]Fam sunny Practice Non-GME FHI1) TELE CONSULT [id number] jagjit mehta SHILA Dooley 03/[address] [place] [address] [employer] [facility]F amily Practic e Non-GME FHI1) [address] [place] [address] Daljit B ([facility])([employer]) TELE CONSULT [id number] estroge ALEX Perla R 07/[address] [place] [address] [employer] ([facility]G ynecolo gy) [address] [place] [address] Daljit B [facility]Fam sunny Practice Non-GME FHI2) TELE CONSULT [id number] rewrite meds/SHILA Ferrell 08/[address] [place] [address] Daljit B ([facility])(F amily Practic e Non-GME FHI2) [address] [place] [address] Daljit B [facility]) OUTPATIENT [id number] annual wwe - [id number] ALEX LEMA R 08/17 Released w/o Limitations [address] [place] [address] Daljit B [facility]G ynecolo gy) [address] [place] [address] Daljit B [facility]) TELE CONSULT [id number] results ALEX LEMA R 08/[address] [place] [address] Daljit B [facility]G ynecolo gy) [address] [place] [address] [employer] [facility]) TELE CONSULT [id number] unsat HARDIK Byrd 08/[address] [place] [address] Daljit B [facility]G ynecolo gy) [address] [place] [address] [employer] [facility]) TELE CONSULT [id number] US results and new plan of care ALEX LEMA R 09/[address] [place] [address] [employer] [facility]G ynecolo gy) [address] [place] [address] [employer] [facility] sunny Practice Non-GME FHI2) TELE CONSULT [id number] rewrite prescri ritesh/ SHILA Dooley 09/[address] [place] [address] [employer] [facility]F amily Practic e Non-GME FHI2) [address] [place] [address] [employer] [facility]) TELE CONSULT [id number] Occult results call to pt- EDIN Spencer 09/[address] [place] [address] [employer] [facility]G ynecolo gy) [facility] Daljit BROWNB ([facility]) OUTPATIENT [id number] repeat pap insuffi trista evelyn HUDDLESTONNER ALEX R 09/25 Released w/o Limitations [facility] Daljit BROWNB ([facility]G ynecolo gy) [facility] Daljit BROWNB ([facility]Fam sunny Practice Non-GME FHI2) OUTPATIENT [id number] pusso m under toenail s, [phone] DONAL FINE 02/26 Released w/o Limitations [facility] Daljit BROWNB ([facility]F amily Practic e Non-GME FHI2) [facility] Daljit BROWNB ([facility]Fam sunny Practice Non-GME FHI1) TELE CONSULT [id number] Rx estela Bland in ANICETO ALMANZAR 02/[address] [place] [address] Daljit BROWNB [facility]F amily Practic e Non-GME FHI1) [facility] Daljit GOINS ([facility]Meo tt [facility] Fam Res Tm Red) OUTPATIENT [id number] L shoulde r [facility] - KEVON GONZALEZ 04/30 Released w/o Limitations [facility] Daljit BROWNB ([facility]S cott [facility] Fam Res Tm Red) [facility] Daljit BROWNB ([facility]Phy sical Therapy) OUTPATIENT [id number] TENDONI TIS JUDITH MELENDEZ 05/04 Released w/o Limitations [facility] Daljit BROWNB ([facility]P hysical Therapy ) [facility] Daljit BROWNB ([facility]Meo tt [facility] Fam Res Tm Red) TELE CONSULT [id number] Lisa/ needs rx ANICETO ALMANZAR 05/25[facility] Daljit BROWNB [facility]S [facility] Fam Res Tm Red) [facility] Medical [facility] Daljit BROWNB [facility]Phy sical Therapy) OUTPATIENT [id number] JUDITH MELENDEZ 05/29 Released w/o Limitations [facility] Daljit BROWNB [facility]P hysical Therapy ) [facility] Medical [facility] Daljit BROWNB [facility]Sco tt [facility] Fam Res Tm Red) TELE CONSULT [id number] RX Refill - PA NINI Lao 06/11 [facility] [employer] ([facility])(S cott [facility] Res Tm Red) [address] [place] [address] [employer] ([facility])(War rior Op Med Cln Tm A Ad) OUTPATIENT [id number] recheck and refill on allergi es and meds [phone] KEVON GONZALEZ 07/26 Released w/o Limitations [facility] [employer] ([facility])(W arrior Op Med Cln Tm A Ad) [address] [place] [address] [employer] ([facility])(Occ upational Therapy) OUTPATIENT [id number] LATERAL EPICOND YLITIS (TENNIS ELBOW) RIGHT SOOTS, SEVERINO L 07/31 Released w/o Limitations [facility] [employer] ([facility])(O ccupati onal Therapy ) [address] [place] [address] [employer] ([facility])(Tar Kettle Runner ecology) OUTPATIENT [id number] annual ALEX LEMA R 08/13 Released w/o Limitations [facility] [employer] ([facility])(G ynecolo gy) [facility] [employer] ([facility])(T[employer] [place]ner ecology) TELE CONSULT [id number] results ALEX LEMA 08/[address] [place] [address] [employer] [facility]G ynecolo gy) [address] [place] [address] [employer] ([facility])(Tar [place]ettle Runner ecology) OUTPATIENT [id number] walkin for bp ck ALEX LEMA R 08/23 Released w/o Limitations [facility] [employer] ([facility])(G ynecolo gy) [address] [place] [address] [employer] ([facility])(Occ upational Therapy) OUTPATIENT [id number] TORRI ZAMUDIO 08/23 Released w/o Limitations [facility] [employer] ([facility])(O ccupati onal Therapy ) [address] [place] [address] [employer] [facility]T[employer] [place] [employer]ner ecology) OUTPATIENT [id number] BP Check ALEX LEMA 08/29 Released w/o Limitations [facility] [employer] [facility]G ynecolo gy) [facility] [employer] [facility]Phy sical Therapy) OUTPATIENT [id number] VINI NORTON 08/29 Released w/o Limitations [address] [place] [address] [employer] [facility] ([facility])(P hysical Therapy ) [address] [place] [address] [employer] [facility])(War rior Op Med Cln Tm A Ad) OUTPATIENT [id number] hyperte nsion KEVON GONZALEZ 09/04 Released w/o Limitations [facility] [employer] [facility])(W arrior Op Med Cln Tm A Ad) [address] [place] [address] [employer] [facility])(Car diology (MTF)) OUTPATIENT [id number] Blood Pressur e Isolate d Elevate d LIPOFF, JOMAR I 09/05 Released w/o Limitations [address] [place] [address] [employer] [facility])(C ardiolo gy ([place])) [address] [place] [address] [employer] [facility])(War rior Op Med Cln Tm A Ad) TELE CONSULT [id number] PCM: SHAMIKA Gonzalez; stress test JEANETTE CLEMONS 09/[address] [place] [address] [employer] [facility])(W arrior Op Med Cln Tm A Ad) [address] [place] [address] [employer] [facility])(War rior Op Med Cln Tm A Ad) OUTPATIENT [id number] HTN ISSUES KEVON GONZALEZ 09/06 Released w/o Limitations [address] [place] [address] [facility])(W arrior Op Med Cln Tm A Ad) [address] [place] [address] [employer])(Car diology (MTF)) OUTPATIENT [id number] EKG LIPOFF, JOMAR I 09/10 Released w/o Limitations [address] [place] [address] [facility])(C ardiolo gy ([place])) [address] [place] [address] [employer])(War rior Op Med Cln Tm A Ad) TELE CONSULT [id number] call back/TRACEY Jackson 09/[address] [place] [address] [employer])(W arrior Op Med Cln Tm A Ad) [address] [place] [address] [employer])(War rior Op Med Cln Tm A Ad) OUTPATIENT [id number] f/u HTN KEVON GONZALEZ 09/28 Released w/o Limitations [address] [place] [address] [employer] [facility])(W arrior Op Med Cln Tm A Ad) [facility] [employer] [facility])(Phy sical Therapy) OUTPATIENT [id number] VINI NORTON 10/05 Released w/o Limitations [facility] [employer] ([facility])(P hysical Therapy ) [address] [place] [address] [employer])(Car diology (MTF)) OUTPATIENT [id number] Blood Pressur e Isolate d Elevate d DENISEF JOMAR Lyles 10/08 Released w/o Limitations [facility] [employer] ([facility])(C ardiolo gy (MTF)) [facility])(Phy sical Therapy) OUTPATIENT [id number] VINI NORTON 10/09 Released w/o Limitations [facility] [employer] ([facility])(P hysical Therapy ) [address] [place] [address] [employer])(War rior Op Med Cln Tm A Ad) TELE CONSULT [id number] TRACEY Velázquez 10/[address] [place] [address] [facility])(W arrior Op Med Cln Tm A Ad) [address] [place] [address] [employer])(Phy sical Therapy) TELE CONSULT [id number] Discuss current plan of care ALINA DRISCOLL 10/[address] [place] [address] [employer])(P hysical Therapy ) [address] [place] [address])(War rior Op Med Cln Tm A Ad) OUTPATIENT [id number] F/U on Cervica l MRI results KEVON GONZALEZ 10/22 Released w/o Limitations [facility] [employer] [facility]W arrior Op Med Cln Tm A Ad) [facility])(War rior Op Med Cln Tm A Ad) OUTPATIENT [id number] f[facility]u [facility] - KEVON GONZALEZ 11/16 Released w/o Limitations [address] [place] [address] [employer] [place] [facility]W arrior Op Med Cln Tm A Ad) [address] [place] [address] [facility])(Fam sunny Med Tm B Non-AD BCC) TELE CONSULT [id number] notes request - MARY ALICE Soto 11/[address] [place], [place] [address]B [facility]F amily Med Tm B Non-AD BCC) [address] [place] [address] [employer])(Fam sunny Med Tm B Non-AD BCC) OUTPATIENT [id number] fol hand and stomach LAMONTE ACOSTA 01/10 Released w/o Limitations [address] [place] [address])(F amily Med Tm B Non-AD BCC) [address] [place] [address])(Fam sunny Med Tm B Non-AD BCC) OUTPATIENT [id number] ongoing headach e follow up [id number] LAMONTE ACOSTA 07/09 Released w/o Limitations [address] [place] [address])(F amily Med Tm B Non-AD BCC) [address] [place] [address])(Fam sunny Med Tm B Non-AD BCC) TELE CONSULT [id number] Inform of Radiolo gy results MIRANDA OLVERA 07/[address] [place] [address])(F amily Med Tm B Non-AD BCC) [address] [place] [address])([employer]ner ecology) OUTPATIENT [id number] annual exam [id number] ALEX LEMA 08/21 Released w/o Limitations [address] [place] [address])(G ynecolo gy) [address] [place] [address])(T[employer] [place]ner ecology) TELE CONSULT [id number] results ALEX LEMA 08/[address] [place] [address])(G ynecolo gy) [address] [place] [address])(Fam sunny Med Tm B Non-AD BCC) TELE CONSULT [id number] concern s with taking 600mg ibruprf en/dent ist ordered pt already taking celebre x NORMA MERCADO 10/[address] [place] [address] [facility])(F amily Med Tm B Non-AD BCC) [address] [place] [address] [employer] B [facility]Fam sunny Med Tm B Non-AD BCC) TELE CONSULT [id number] cleeary pt wants labs order for vit-d / [id number] NORMA MERCADO 12/05 [facility] [employer] [facility] ([facility])(F amily Med Tm B Non-AD BCC) [facility] [employer] [facility] ([facility])(Fam sunny Med Tm B Non-AD BCC) OUTPATIENT [id number] painful lumps under armpit - [phone] LAMONTE ACOSTA 12/20 Released w/o Limitations [facility] [employer] [facility] ([facility])(F amily Med Tm B Non-AD BCC) [facility] [employer] ([facility])(Ob/ Tar Kettle Runner) TELE CONSULT [id number] vit D results ALEX LEMA 12/20 [facility] [employer] [facility] ([facility])(O b/Tar Kettle Runner) [facility] [employer] ([facility])(Fam sunny Med Tm B Non-AD BCC) TELE CONSULT [id number] Meds refill/ [place]/ fxs NORMA MERCADO 05/26 [facility] [employer] [facility] ([facility])(F amily Med Tm B Non-AD BCC) [facility] [employer] [facility]War rior Op Med Cln Tm A Ad) OUTPATIENT [id number] f/u meds... [id number] LAMONTE ACOSTA 09/08 Released w/o Limitations [facility] [employer] ([facility])(W arrior Op Med Cln Tm A Ad) [facility] [employer]T[employer] [place] Runner ecology) OUTPATIENT [id number] annual wwe - [id number] ALEX LEMA 09/12 Released w/o Limitations [facility] [employer] [facility]G ynecolo gy) [facility] [employer] [facility]T[employer] [place] Runner ecology) TELE CONSULT [id number] Discuss Bone density results CHARLINE ALARCONKYARA Valdez 09/16 [facility] [employer] ([facility])(G ynecolo gy) [facility] [employer] ([facility])(Tar [place]ettle Runner ecology) TELE CONSULT [id number] results ALEX LEMA 09/[address] [place] [address] [employer] [facility]G ynecolo gy) [facility] [employer] ([facility])(Tar [employer]ettle Runner ecology) TELE CONSULT [id number] f/u ALEX LEMA 10/20 [facility] [employer] [facility] ([facility])(G ynecolo gy) Procedures Combined list of: 1) Procedures from Department of Veterans Affairs facilities [facility], not all VA non-surgical procedures are included; 2) All procedures from the Department of Defense facilities. Procedure Procedure Type Code Date Perfomer Comments Sourc e No data available for this section Ambulatory Pharmacy INSUFFLATION OF FALLOPIAN TUBE 1988 [facility] LAPAROSCOPY 1988 [facility] SCREENING PAPANICOLAOU SMEAR; OBTAINING, PREPARING AND CONVEYANCE [...] 0.5 ML DOSAGE, FOR INTRAMUSCULAR USE 2008 [facility] THERAPEUTIC PROCEDURE, 1 OR MORE AREAS, EACH [...] CERVICAL OR VAGINAL SMEAR TO LABORATORY 2007 [facility] ELECTROCARDIOGRAM, ROUTINE ECG WITH AT LEAST 12 LEADS; WITH INTERPRETATION AND REPORT 2006 [facility] SCREENING PAPANICOLAOU SMEAR; OBTAINING, PREPARING AND CONVEYANCE OF CERVICAL OR VAGINAL SMEAR TO LABORATORY 2006 [facility] TETANUS AND DIPHTHERIA TOXOIDS (TD) ADSORBED WHEN ADMINISTERED TO INDIVIDUALS 7 YEARS OR OLDER, FOR INTRAMUSCULAR USE 2004 [facility] INFLUENZA VIRUS VACCINE, TRIVALENT (IIV3), SPLIT VIRUS, 0.5 ML DOSAGE, FOR INTRAMUSCULAR USE 2004 [facility] ELECTROCARDIOGRAM, ROUTINE ECG WITH AT LEAST 12 LEADS; WITH INTERPRETATION AND REPORT 2003 [facility] PHYS/OTH QUALIFIED HEALTH WEB APPLICATIONS PROGRAMMER QUALIFIED,EDUCATION,TR SHADYN,LICENSURE/REGULATI ON (WHEN APPLICABLE) EDUC SER RENDERED TO PATS IN A GRP SETTING (EG,,OBESITY,O R DIABETIC INSTRUCT) 2002 [facility] SUPP &MATERIAL (EXCEPT SPECTACLE),PROVID,THE PHYS/OTH QUALIFIED HEALTH WEB APPLICATIONS PROGRAMMER OVER &ABOVE THOSE USUALLY INCLD W THE OFFICE VISIT/OTH SER RENDERED (LIST DRUG,TRAYS,SUPP,OR MATERIAL PROVID) 2002 [facility] APPLICATION OF A MODALITY TO 1 OR MORE AREAS; IONTOPHORESIS, EACH 15 MINUTES 2002 [facility] SUPP &MATERIAL (EXCEPT SPECTACLE),PROVID,THE PHYS/OTH QUALIFIED HEALTH WEB APPLICATIONS PROGRAMMER OVER &ABOVE THOSE USUALLY INCLD W THE OFFICE VISIT/OTH SER RENDERED (LIST DRUG,TRAYS,SUPP,OR MATERIAL PROVID) 2002 [facility] APPLICATION OF A MODALITY TO 1 OR MORE AREAS; IONTOPHORESIS, EACH 15 MINUTES 2002 [facility] APPLICATION OF A MODALITY TO 1 OR MORE AREAS; ULTRASOUND, EACH 15 MINUTES 2002 [facility] SUPP &MATERIAL (EXCEPT SPECTACLE),PROVID,THE PHYS/OTH QUALIFIED HEALTH WEB APPLICATIONS PROGRAMMER OVER &ABOVE THOSE USUALLY INCLD W THE OFFICE VISIT/OTH SER RENDERED (LIST DRUG,TRAYS,SUPP,OR MATERIAL PROVID) 2002 [facility] SUPP &MATERIAL (EXCEPT SPECTACLE),PROVID,THE PHYS/OTH QUALIFIED HEALTH WEB APPLICATIONS PROGRAMMER OVER &ABOVE THOSE USUALLY INCLD W THE OFFICE VISIT/OTH SER RENDERED (LIST DRUG,TRAYS,SUPP,OR MATERIAL PROVID) 2002 [facility] SCREENING PAPANICOLAOU SMEAR; OBTAINING, PREPARING AND CONVEYANCE OF CERVICAL OR VAGINAL SMEAR TO LABORATORY 2002 [facility] EDUCATIONAL SUPPLIES, SUCH BOOKS, TAPES, AND PAMPHLETS, FOR THE PATIENT'S EDUCATION AT COST TO PHYSICIAN OR OTHER QUALIFIED HEALTH WEB APPLICATIONS PROGRAMMER 2002 [facility] WRIST HAND ORTHOSIS, WRIST EXTENSION CONTROL COCK-UP, NON MOLDED, PREFABRICATED, [id number] 2002 [facility] ONYCHOPLASTY 1992 [facility] OTHER EXCISION OR AVULSION OF CRANIAL AND PERIPHERAL NERVES 1992 [facility] Screening papanicolaou smear; obtaining, preparing and conveyance of cervical or vaginal smear to laboratory 2009 ALEX LEMA [facility] Non-Physician Phone Call To Patient/Provider Brief (5-10min) Non-Physician Phone Call To Patient/Provider Brief (5-10min) [phone] MIRANDA OLVERA [facility] Influenza Split Virus Vaccine 0.5mL Dosage Intramuscular Preservative Free 2008 LAMONTE ACOSTA [facility] A isted Exercises For ROM Assisted Exercises For ROM [id number] 2008 ALINA DRISCOLL 10 min instruction [facility] Physical Therapy Service Re-Evaluation Physical Therapy Service Re-Evaluation [id number] 2008 VINI NORTON [facility] Cardiac Stre Test Interpretation And Report Only Cardiac Stress Test Interpretation And Report Only [id number] 2008 MAYA CHAVEZ [facility] Physical Therapy Service Evaluation Physical Therapy Service Evaluation [id number] 2008 VINI NORTON [facility] ECG Interpretation And Report Only ECG Interpretation And Report Only [id number] 2008 KERRI BECKER [facility] Non-Physician Phone Call To Patient/Provider Brief (5-10min) Non-Physician Phone Call To Patient/Provider Brief (5-10min) 90912 2008 JEANETTE CLEMONS [facility] Cardiac Stre Test With Physician Supervision, Interpretation, And Report Cardiac Stress Test With Physician Supervision, Interpretation, And Report [id number] 2008 MEKA NEAL [facility] Physical Therapy Service Re-Evaluation Physical Therapy Service Re-Evaluation 81825 2008 VINI NORTON [facility] Phys Therapy Education Self Care Training - Per 15 Minutes Phys Therapy Education Self Care Training - Per 15 Minutes [id number] 2008 TORRI ZAMUDIO [facility] Screening papanicolaou smear; obtaining, preparing and conveyance of cervical or vaginal smear to laboratory 2008 ALEX LEMA [facility] Splint, prefabricated, elbow 2008 SOSEVERINO ALCANTAR [facility] Splint, prefabricated, wrist or ankle 2008 SOSEVERINO ALCANTAR [facility] Occupational Therapy Evaluation Occupational Therapy Evaluation 38131 2008 SOSEVERINO ALCANTAR [facility] Non-Physician Phone Call To Patient/Provider Brief (5-10min) Non-Physician Phone Call To Patient/Provider Brief (5-10min) [id number] NINI JOE [facility] Physical Therapy Service Re-Evaluation Physical Therapy Service Re-Evaluation 14159 2008 JUDITH MELENDEZ [facility] Phys Therapy Education Self Care Training - Per 15 Minutes Phys Therapy Education Self Care Training - Per 15 Minutes [id number] 2008 JUDITH MELENDEZ [facility] Physical Therapy Service Evaluation Physical Therapy Service Evaluation 63418 2008 JUDITH MELENDEZ [facility] Screening papanicolaou smear; obtaining, preparing and conveyance of cervical or vaginal smear to laboratory 2007 ALEX LEMA [facility] Non-Physician Phone Call To Patient/Provider Brief (5-10min) Non-Physician Phone Call To Patient/Provider Brief (5-10min) [phone] SHILA MORALES [facility] Screening papanicolaou smear; obtaining, preparing and conveyance of cervical or vaginal smear to laboratory 2007 ALEX LEMA Non-Physician Phone Call To Patient/Provider Brief (5-10min) Non-Physician Phone Call To Patient/Provider Brief (5-10min) [id number] 2007 SHILA MORALES [facility] Electrocardiogram Electrocardiogram 70350 09/02 KEVON GONZALEZ [facility] Screening papanicolaou smear; obtaining, preparing and conveyance of cervical or vaginal smear to laboratory 2006 NINI JOE [facility] Influenza Split Virus Vaccine 0.5mL Dosage Intramuscular 2004 AUGUSTIN SNYDER [facility] Immunization Administration By Injection, One Vaccine Immunization Administration By Injection, One Vaccine 14267 2004 EMILY KENT Td Vaccine Seven Years Of Age And Above Td Vaccine Seven Years Of Age And Above 72365 2004 EMILY KENT Social History Combined list [...] Plan No data available for this section 03/23/2024 Ambulatory Pharmacy Functional Status Combined list of recent functional and cognitive assessments recorded at Department of Defense and Veterans Affairs (VA).VA Functional Latta Measurement (FIM) Scale: 1 = Total Assistance (Subject = 0% +), 2 = Maximal Assistance (Subject = 25% +), 3 = Moderate Assistance (Subject = 50% +), 4 = Minimal Assistance (Subject = 75% +), 5 = Supervision, 6 = Modified Latta (Device), 7 = Complete Latta (Timely, Safely). Assessment Date/Time Source Assessment Type Assessment Skill Assessment Score Assessment Details No data available for this section
--- OUTSIDE RECORDS SUMMARY | 2024-03-23 15:17 | XMS_ITS | Clinical Summary ---
Author Organization [facility] Address [address] [place] [address]. 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
== END 2024-03-23 14:44 | disposition home or self-care (01) ==
PROVIDERS: PCP Family Medicine; Visit Provider Anesthesiology
DX: I23.2 Ventricular septal defect as current complication following acute myocardial infarction (principal); I77.819 Aortic ectasia, unspecified site; E78.5 Hyperlipidemia, unspecified
CPT/HCPCS: 93005

== ENCOUNTER 2024-03-31 00:23 | Day surgery (SDC) | payer MEDICARE, OTHER, SELFPAY ==
[2024-03-20 13:00] VITALS: BMI 24.5
--- NOTE | 2024-03-20 13:27 | PC.NURSE ---
Report to the Outpatient Waiting Room, entrance under the green pavilion located off [facility], at time __07:00am on date __03/31/24 . Planned Procedure Time: _09:00am .? Time changes happen often and if your time is changed the preop area will call you the afternoon before. - You and your visitor will be asked to self-screen and do not enter if you have any COVID symptoms. Please call surgeon if you need to reschedule. - A mask is optional within the hospital at this time. Patients may have clear liquids (water, carbonated beverages, clear teas, apple juice) until 3 hours prior to surgery with a maximum of 20 ounces. - No food from midnight until time of surgery and no smoking. This includes no chewing gum, candy or mints.(0600am) Take only the following medications with a SIP of water on the morning of surgery: Tylenol if needed DO NOT STOP ANY OF YOUR OTHER PRESCRIPTION MEDICATIONS PRIOR TO SURGERY EXCEPT THE FOLLOWING Medications to discontinue per physician Hold all Vitamins, supplements, NSAIDS, and Aspirin for [address] Taylor Date to take last dose 03/13/24 Please no make-up, nail zimbabwean, hairspray, perfume, deodorant, or body powder the day of surgery.? No jewelry (including any body piercings) or valuables the day of surgery, leave them at home.? Please take a shower or bath the night before, or the morning of, surgery with an antibacterial soap.? Wear comfortable, loose fitting clothing.? - Jewelry must be removed prior to entering the operating room.? Rings and piercings that are not removed may be cut off. - The hospital will not accept responsibility for valuables.? - Please leave all valuables, including medications, at home the day of surgery. If you are going home after surgery, a licensed hazmat cdl a driver must drive you home.? - NO public transportation without another adult if you receive anesthesia. - We recommend that an adult stay with you for 24 hours following discharge. - We also recommen that you do not drive, make important decision, drink alcoholic beverages, or take any drugs that were not prescribed by your health care provider for at least 24 hours after your discharge time. Follow any additional instructions given to you from your surgeon. Telephone instructions given to __Patient and asked if any additional questions and then verbalized understanding. Patient advised to call surgeon office or pre surgery nurse liaison [phone] if any additional questions.
--- NOTE | 2024-03-30 11:59 | PM.IMHP ---
H&P: HPI History of Present Illness Date/Time: 03/30/24 11:59 Chief Complaint: Stress incontinence Narrative: presents for surgical management of stress incontinence Review of Systems Review of Systems: All systems reviewed & are unremarkable except as noted in HPI and below PMFSH Past Medical History Medical History HLD (hyperlipidemia) Arthritis of right subtalar joint Allergic rhinitis Plantar fasciitis Weight gain Alcohol use 1-2 drinks/week Osteopenia Mitral valve prolapse GERD (gastroesophageal reflux disease) Migraine Surgical History Surgical History History of foot surgery Willett's neuroma removal, 2019, Isaac History of hip replacement Family History Family History Mother Hypertension Family history of chronic obstructive pulmonary disease Family history of coronary artery disease Father Hypertension Family history of coronary artery disease Social History Social History Social History: Years smoked: 4 Smoking status: Former smoker Second hand tobacco smoke exposure: No Smoking end date: 02/22/77 Alcohol intake: current Drinks per week: 7 Alcohol use details: 2-3 per week Substance use: never Substance use type: does not use Do You Feel Safe in your Home?: Yes Lack of Transportation: No Lack of Food: Never True Current Housing: I Have Housing Concerned About Future Housing: No Difficulty Paying Gas/Electric Bills: No Difficulty Paying for Meds: No Currently Unemployed: YES Education: Don't Know Difficulty w/ Childcare or Family Care: No Living arrangements: with family Additional living arrangements comments: Occupation/Education: retired Gender identity (if verbalized by the patient): Female Sexual Orientation (if Verbalized by the Patient): Straight or Heterosexual Spiritual care concerns: No Meds Home Medications and Allergies Home Medications ?Medication ?Instructions ?Recorded ?Confirmed ?Type epinephrine 0.3 mg/0.3 mL 0.3 mg (0.3 mL) subcut Q5-15M PRN 10/29/21 03/20/24 Rx injection syringe anaphylaxis #2 ea aspirin 81 mg tablet,delayed 81 mg PO DAILY #1 tablet 03/19/23 03/20/24 Rx release (Adult Low Dose Aspirin) acetaminophen 500 mg tablet 1,000 mg (2 x 500 mg) PO TID PRN 07/04/23 03/20/24 Rx eddie 7 days #42 tabs amitriptyline 25 mg tablet 25 mg PO QHS #90 tabs 12/27/23 03/20/24 Rx cetirizine 10 mg capsule (Zyrtec) 10 mg PO DAILY #90 caps 12/27/23 03/20/24 Rx fluticasone propionate 50 2 spray intranasal DAILY #48 grams 12/27/23 03/20/24 Rx mcg/actuation nasal spray,suspension montelukast 10 mg tablet 10 mg PO DAILY #90 tabs 12/27/23 03/20/24 Rx (Singulair) pantoprazole 40 mg tablet,delayed 40 mg PO DAILY #90 tabs 12/27/23 03/20/24 Rx release pimecrolimus 1 % topical cream 1 applic topical BID 12/27/23 03/20/24 History rosuvastatin 5 mg tablet (Crestor) 5 mg PO DAILY #90 tabs 12/27/23 03/20/24 Rx calcium 315 mg (as 1 tablet PO DAILY 03/20/24 03/20/24 History citrate)-vitamin D3 6.25 mcg (250 unit) tablet (Citracal + Vitamin D Maximum) conjugated estrogens 0.625 mg/gram 0.625 mg topical .twice weekly 03/20/24 03/20/24 History vaginal cream (Premarin) bmnlkvsp-pvyhdev-dcmd-lutein tablet 1 tablet PO DAILY 03/20/24 03/20/24 History psyllium husk 0.4 gram capsule 0.4 g PO DAILY 03/20/24 03/20/24 History (Daily Fiber) sumatriptan succinate 100 mg 100 mg PO PRN Migraine 03/20/24 03/20/24 History tablet (Imitrex) vitamin B complex (Super Quints 1 tablet PO DAILY 03/20/24 03/20/24 History B-50 tablet) Allergies Allergy/AdvReac Type Severity Reaction Status Date / Time HAZELNUTS Allergy Intermediate ITCHY Uncoded 03/20/24 12:51 THROAT Exam Narrative: urethral hypermobility noted Assessment and Plan Assessment and plan (1) SHEKHAR (stress urinary incontinence, female): Code(s): N39.3 - Stress incontinence (female) (male) Status: Acute Assessment and Plan: plan for urethral sling. Risks, benefits, alternatives discussed and documented in office chart
--- NOTE | 2024-03-30 17:15 | P.PNAN_ITS ---
Anes - Initial Pre Proc Eval Procedure: Operation Date: 03/31/24 07:30 Proposed Procedures p Urethral Sling - Jose Taylor MD Date/Time: 03/30/24 17:15 Surgeon: Jose Taylor MD Pre Op Diagnosis: stress incont Patient Data Age: 68 Gender: F Height: 1.73 m Weight: 73.4 kg Allergies Allergy/AdvReac Type Severity Reaction Status Date / Time HAZELNUTS Allergy Intermediate ITCHY Uncoded 03/31/24 06:40 THROAT Home Medications ?Medication ?Instructions ?Recorded ?Confirmed ?Type epinephrine 0.3 mg/0.3 mL 0.3 mg (0.3 mL) subcut Q5-15M PRN 10/29/21 03/20/24 Rx injection syringe anaphylaxis #2 ea aspirin 81 mg tablet,delayed 81 mg PO DAILY #1 tablet 03/19/23 03/31/24 Rx release (Adult Low Dose Aspirin) acetaminophen 500 mg tablet 1,000 mg (2 x 500 mg) PO TID PRN 07/04/23 03/20/24 Rx eddie 7 days #42 tabs amitriptyline 25 mg tablet 25 mg PO QHS #90 tabs 12/27/23 03/31/24 Rx cetirizine 10 mg capsule (Zyrtec) 10 mg PO DAILY #90 caps 12/27/23 03/31/24 Rx fluticasone propionate 50 2 spray intranasal DAILY #48 grams 12/27/23 03/31/24 Rx mcg/actuation nasal spray,suspension montelukast 10 mg tablet 10 mg PO DAILY #90 tabs 12/27/23 03/31/24 Rx (Singulair) pantoprazole 40 mg tablet,delayed 40 mg PO DAILY #90 tabs 12/27/23 03/31/24 Rx release pimecrolimus 1 % topical cream 1 applic topical BID 12/27/23 03/31/24 History rosuvastatin 5 mg tablet (Crestor) 5 mg PO DAILY #90 tabs 12/27/23 03/31/24 Rx calcium 315 mg (as 1 tablet PO DAILY 03/20/24 03/31/24 History citrate)-vitamin D3 6.25 mcg (250 unit) tablet (Citracal + Vitamin D Maximum) conjugated estrogens 0.625 mg/gram 0.625 mg topical .twice weekly 03/20/24 03/20/24 History vaginal cream (Premarin) qwkgncga-aunszhr-qpqy-lutein tablet 1 tablet PO DAILY 03/20/24 03/31/24 History psyllium husk 0.4 gram capsule 0.4 g PO DAILY 03/20/24 03/31/24 History (Daily Fiber) sumatriptan succinate 100 mg 100 mg PO PRN Migraine 03/20/24 03/20/24 History tablet (Imitrex) vitamin B complex (Super Quints 1 tablet PO DAILY 03/20/24 03/31/24 History B-50 tablet) Patient hx anesthesia problems: none Family hx anesthesia problems: none Results Review: All pre-operative results and documents have been reviewed as part of the pre- operative evaluation. [facility] Past Medical History Medical History (Updated 03/30/24 @ 17:16 by Reese Drake DO) Aortic regurgitation TIA (transient ischemic attack) HLD (hyperlipidemia) Arthritis of right subtalar joint Allergic rhinitis Plantar fasciitis Weight gain Alcohol use 1-2 drinks/week Osteopenia Mitral valve prolapse GERD (gastroesophageal reflux disease) Migraine Surgical History Surgical History History of foot surgery Willett's neuroma removal, 2020, Isaac History of hip replacement Family History Family History Mother Hypertension Family history of chronic obstructive pulmonary disease Family history of coronary artery disease Father Hypertension Family history of coronary artery disease Social History Social History Social History: Years smoked: 4 Smoking status: Former smoker Second hand tobacco smoke exposure: No Smoking end date: 02/22/77 Alcohol intake: current Drinks per week: 7 Alcohol use details: 2-3 per week Substance use: never Substance use type: does not use Do You Feel Safe in your Home?: Yes Lack of Transportation: No Lack of Food: Never True Current Housing: I Have Housing Concerned About Future Housing: No Difficulty Paying Gas/Electric Bills: No Difficulty Paying for Meds: No Currently Unemployed: YES Education: Don't Know Difficulty w/ Childcare or Family Care: No Living arrangements: with family Additional living arrangements comments: Occupation/Education: retired Gender identity (if verbalized by the patient): Female Sexual Orientation (if Verbalized by the Patient): Straight or Heterosexual Spiritual care concerns: No Anes - Eval Final PreProcedure Day of Procedure 03/30/24 17:15 Patient weight: normal Heart: regular rate and rhythm Lungs: clear to auscultation and normal air movement Airway: Mallampati scale class II Neurological: alert and oriented Last oral intake: >/= 8 hours ASA classification: III Emergent: no Anesthetic plan: proceed Anesthesia type and monitoring: general GIVS and standard monitoring Results Review: All pre-operative results and documents have been reviewed as part of the pre- operative evaluation. Informed Consent: The patient's anesthetic plan and its attendant risks and benefits were discussed with the patient/family/POA. Questions were solicited and answers provided to the satisfaction of the patient/family/POA.
--- OUTSIDE RECORDS SUMMARY | 2024-03-31 00:30 | XMS_ITS | Continuity of Care Document ---
Author Name DOD-OR Organization DOD-[facility] Care Team Providers Care Intel Analyst Name Role Phone [facility] Unavailable Unavailable Problems [...] medication Active Condition JOSE EDUARDO SEYMOUR Age:51 [phone] OUTPAT PRE-ACTIVE ORDERS 1 RX CETIRIZINE HCL--PO [...] juice.Ma y cause drowsine ss/dizzi ness. 02/01/2024 [id number] 4 2023 10 [facility] Daljit GOINS ([facility] ALPRAZOLAM (ALPRAZOLAM ), 0.5MG, TABLET, ORAL, ACTAVIS ELIZABE, 500 ea. BOTTLE Cancele d [id number] : 2023 0 Pharmac y Data Transac tion Service Facilit y ALPRAZOLAM (ALPRAZOLAM ), 0.5MG, TABLET, ORAL, ACTAVIS ELIZABE, 500 ea. BOTTLE Active [id number] 4 2023 10 Pharmac y Data Transac [...] as directed .Obtain advice for OTCs. 02/29/2024 [id number] 4 [address] [place] [address] Daljit BROWN ([facility] CETIRIZINE (U/D) 10 MG ORAL TAB May cause drowsine ss.Obtai n advice for OTCs. 02/29/2024 [id number] 4 [address] [place] [address] Daljit GOINS ([facility] cetirizine 10 mg tablet 10 mg, Oral, [...] whole.Do not take if . Active 06/20/2024 [id number] 4 2023 60 [facility] Daljit GOINS ([facility] diclofenac sodium EC 75 mg tablet 75 [...] exactly as directed .For the nose. 02/29/2024 [id number] 4 [address] [place] [address] Daljit GOINS ([facility] fluticasone 50 mcg/inh nasal spray [16g] See [...] ORAL, AMNEAL PHARMACE, 100 ea. BOTTLE Active [id number] 4 2023 20 Pharmac y Data Transac tion Service Facilit y IBUPROFEN (ibuprofen) , 800 MG, TABLET, ORAL, AUROBINDO PHARM, 500 ea. BOTTLE Cancele d [id number] : 2023 0 Pharmac y Data Transac tion Service Facilit y loratadine 10 mg oral tablet TAKE ONE TABLET BY MOUTH EVERY DAY, # 90 EA, 3 total refill(s ), Acute Complet ed 10/27/2022 90.0 Ambulat ory Pharmac y MONTELUKAST (U/D) 10 MG ORAL TAB Take or use exactly as directed . 02/29/2024 [id number] 4 2023 90 [facility] Daljit GOINS ([facility] montelukast 10 mg tablet 10 mg, Oral, [...] AUROBINDO PHARM, 30 ea. BLIST PACK Active [id number] 4 2023 20 Pharmac y Data Transac [...] 1% Topical For external use. Active 08/16/2024 [id number] 4 [address] [place] [address] Daljit [facility] ([facility] Pimecrolimu s (Elidel Eq.) Cream 1% Topical For external use. 02/02/2024 [id number] 3 [address] [place] [address] ([facility] pimecrolimu s 1% cream [100g] See Instruct [...] ORAL, NOVADOZ PHARMAC, 1000 ea. BOTTLE Active [id number] 4 2023 90 Pharmac y Data Transac tion Service Facilit y SUMAtriptan (U/D) 100 MG ORAL TAB Take or use exactly as directed . 02/29/2024 [id number] 4 [address] [place] [address] ([facility] SUMAtriptan 100 mg oral tablet TAKE ONE [...] allergy (disorder) Edema of larynx active [address] [place] [address] ([facility] Immunizations Combined list of available immunizations from the Department of Defense and Veterans Affairs facilities. Immunization Series Date Given Administered By Site Reaction Lot Number CVX Code Drug Stock Roller Status Comments Source influenza, injectable, quadrivalent 2021 [...] dose 3 2020 Unknown, Provider 208 Pfizer, Helijia (PFR) complet ed SARS-COV- 2 (COVID-19 ) vaccine, mRNA, spike protein, LNP, preservat da free, 30 mcg/0.3mL dose DoD COVID Vaccine Pfizer 2020 TRANSCR IBED 208 PFIZER complet ed COVID Vaccine Pfizer 05/07/20 Given Ambulat ory Pharmac y SARS-COV-2 (COVID-19) vaccine, mRNA, spike protein, LNP, preservative free, 30 mcg/0.3mL dose 2 2020 Unknown, Provider 208 Pfizer, Helijia (PFR) complet ed SARS-COV- 2 (COVID-19 ) vaccine, mRNA, spike protein, LNP, preservat da free, 30 mcg/0.3mL dose DoD COVID Vaccine Pfizer 2020 TRANSCR IBED 208 PFIZER complet ed COVID Vaccine Pfizer 04/16/20 Given Ambulat ory Pharmac y SARS-COV-2 (COVID-19) vaccine, mRNA, spike protein, LNP, preservative free, 30 mcg/0.3mL dose 1 2020 Unknown, Provider 208 Pfizer, Helijia (PFR) complet ed SARS-COV- 2 (COVID-19 ) [...] polysaccharid e vac 2018 zzLef t Arm [id number] 101 sanofi pasteur complet ed typhoid Vi capsular polysacch aride vac 09/12/18 Given Ambulat ory Pharmac y poliovirus vaccine, inactivated 2018 zzRig Arm [id number] 10 sanofi pasteur complet ed polioviru s vaccine, inactivat ed 09/12/18 Given Ambulat ory Pharmac y poliovirus vaccine, inactivated 1 2018 Unknown, Provider [id number] 10 Sanofi Pasteur (PMC) complet ed polioviru s vaccine, inactivat ed DoD typhoid Vi capsular polysaccharid e vaccine 1 2018 Unknown, Provider [id number] 101 Sanofi Pasteur (PMC) complet ed typhoid Vi capsular polysacch aride vaccine DoD rabies vaccine, IM 2018 zzLef t Arm [id number] 175 sanofi pasteur complet ed rabies vaccine, IM 05/20/18 Given Ambulat ory Pharmac y rabies vaccine, for intramuscular injection RETIRED CODE 1 2018 Unknown, Provider [id number] 18 Sanofi Pasteur (PMC) complet ed rabies vaccine, for intramusc ular injection RETIRED CODE DoD rabies vaccine, IM 2018 zzLef t Arm [id number] 175 sanofi pasteur complet ed rabies vaccine, IM 05/06/18 Given Ambulat ory Pharmac y rabies vaccine, for intramuscular injection RETIRED CODE 1 2018 Unknown, Provider [id number] 18 Sanofi Pasteur (PMC) complet ed rabies vaccine, for intramusc ular injection RETIRED CODE DoD typhoid Vi capsular polysaccharid e vac 2018 [facility] [id number] 101 sanofi pasteur complet ed typhoid Vi capsular polysacch aride vac 04/18/18 Given Ambulat ory Pharmac y rabies vaccine, IM 2018 zzLef t Arm [id number] 175 sanofi pasteur complet ed rabies vaccine, IM 04/18/18 Given Ambulat ory Pharmac y Stateless Encephalitis IM 2018 [facility] [id number] 134 Valneva complet ed Stateless Encephali tis IM 04/18/18 Given Ambulat ory Pharmac y rabies vaccine, for intramuscular injection RETIRED CODE 1 2018 Unknown, Provider [id number] 18 Sanofi Pasteur (PMC) complet ed rabies vaccine, for intramusc ular injection RETIRED CODE [facility] typhoid Vi capsular polysaccharid e vaccine 1 2018 Unknown, Provider [id number] 101 Sanofi Pasteur (PMC) complet ed typhoid Vi capsular polysacch aride vaccine DoD Stateless Encephalitis vaccine for intramuscular administratio n 1 2018 Unknown, Provider [id number] 134 Valneva (RADHA) complet ed Stateless Encephali tis vaccine for intramusc ular administr ation DoD tetanus-dipht h toxoids (Td) adult/adol 2018 zzLef t Arm [id number] 09 sanofi pasteur complet ed tetanus-d iphth [...] of diphtheria toxoid) 1 2018 Unknown, Provider [id number] 09 Sanofi Pasteur (PMC) complet ed tetanus [...] vaccine 12/26/15 Given Ambulat ory Pharmac y Stateless Encephalitis IM 2015 zzRig Arm [id number] 134 Valneva complet ed Stateless Encephali tis IM 12/26/15 Given Ambulat ory Pharmac y hepatitis A and hepatitis B vaccine 1 2015 Unknown, Provider [id number] SmithK[employer] (SKB) complet ed hepatitis A and hepatitis B vaccine DoD Stateless Encephalitis vaccine for intramuscular administratio n 1 2015 Unknown, Provider [id number] 134 Inter[employer] (INT) complet ed Stateless Encephali tis vaccine for intramusc ular administr ation DoD influenza, injectable, quadrivalent 2015 zzL t Arm [id number] ID [employer]ical complet ed influenza , injectabl e, quadrival ent 11/21/15 Given Ambulat ory Pharmac y Stateless [facility] [place] [id number] 134 Valneva complet ed Stateless Encephali tis IM 11/21/15 Given Ambulat ory Pharmac y hepatitis A-hepatitis B vaccine 2015 zzLef t Arm [id number] 104 GlaxoSmithKli ne complet ed hepatitis A-hepatit is B vaccine 11/21/15 Given Ambulat ory Pharmac y typhoid Vi capsular polysaccharid e vac 2015 [facility] [id number] 101 sanofi pasteur complet ed typhoid Vi capsular polysacch aride vac 11/21/15 Given Ambulat ory Pharmac y typhoid Vi capsular polysaccharid e vaccine 1 2015 Unknown, Provider [id number] Sanofi Pasteur (PMC) complet ed typhoid Vi capsular polysacch aride vaccine DoD hepatitis A and hepatitis B vaccine 1 2015 Unknown, Provider [id number] [facility] (SKB) complet ed hepatitis A and hepatitis B vaccine DoD Stateless Encephalitis vaccine for intramuscular administratio n 1 2015 Unknown, Provider [id number] 134 [facility] (INT) complet ed Stateless Encephali tis vaccine for intramusc ular administr [...] injectabl e DoD [facility]oster vaccine live [facility] [place] [id number] 121 Merck & xPeerient Inc complet ed zoster vaccine live 12/16/12 Given Ambulat ory Pharmac y zoster vaccine, live 1 2012 Unknown, Provider [id number] Merck (MSD) complet ed zoster vaccine, live DoD pneumococcal 13-valent conjugate (PCV13) 2012 [id number] complet ed pneumococ jovon 13-valent conjugate (PCV13) 03/17/12 Given Ambulat ory Pharmac y pneumococcal conjugate vaccine, 13 valent 1 2012 Unknown, Provider [id number] Transcribed (TRS) complet ed pneumococ jovon [...] Pharmac y Novel influenza-H1N 1-09, [facility] [id number] Novartis Pharmaceutica ls complet ed Novel influenza -[id number], injectabl e 03/14/09 Given Ambulat ory Pharmac y Novel influenza-H1N 1-09, injectable 1 2009 Unknown, Provider [id number] Novartis Pharmaceutica l Kulwinder. (NOV) complet ed Novel influenza -G6U8-94, injectabl e DoD influenza virus vaccine,split 2008 zzL t Arm [id number] 15 sanofi pasteur complet ed influenza virus vaccine,s plit 01/10/09 Given Ambulat ory Pharmac y influenza virus vaccine, split virus (incl. purified surface antigen)-reti red CODE 1 2008 Unknown, Provider [id number] 15 Sanofi Pasteur (PMC) complet ed influenza virus vaccine, split virus (incl. purified surface antigen)- retired CODE DoD tetanus, diphtheria, acellular pertu is 2007 Kel Arm [id number] 115 sanofi pasteur complet ed tetanus, diphtheri a, acellular pertussis 02/03/08 Given Ambulat ory Pharmac y influenza virus vaccine,split 2007 zzLef t Arm [id number] 15 sanofi pasteur complet ed influenza virus vaccine,s plit 02/03/08 Given Ambulat ory Pharmac y influenza virus vaccine, split virus (incl. purified surface antigen)-reti red CODE 1 2007 Unknown, Provider [id number] 15 Sanofi Pasteur ([facility]) complet ed influenza virus vaccine, split virus (incl. purified surface antigen)- retired CODE DoD tetanus toxoid, reduced diphtheria toxoid, and acellular pertu is vaccine, adsorbed 1 2007 Unknown, Provider [id number] 115 Sanofi Pasteur ([facility]) complet ed tetanus toxoid, reduced diphtheri a toxoid, and acellular pertussis vaccine, adsorbed DoD influenza virus vaccine,split 2005 zzLef t Arm [id number] 15 [employer] ne complet ed influenza virus vaccine,s plit 02/05/06 Given Ambulat ory Pharmac y influenza virus vaccine, split virus (incl. purified surface antigen)-reti red CODE 1 2005 Unknown, Provider [id number] 15 [facility] (SKB) complet ed influenza virus vaccine, split virus (incl. purified surface antigen)- retired CODE DoD tetanus-dipht h toxoids (Td) adult/adol 2004 zzUnique ht Arm [id number] 09 sanofi pasteur complet ed tetanus-d iphth toxoids (Td) adult/ado l 01/13/05 Given Ambulat ory Pharmac y influenza virus vaccine,split 2004 zzLef t Arm [id number] 15 sanofi pasteur complet ed influenza virus vaccine,s plit 01/13/05 Given Ambulat ory Pharmac y tetanus and diphtheria toxoids, adsorbed, preservative free, for adult use (2 Lf of tetanus toxoid and 2 Lf of diphtheria toxoid) 1 2004 Unknown, Provider [id number] 09 Sanofi Pasteur ([facility]) complet ed tetanus and diphtheri a toxoids, adsorbed, preservat da free, for adult use (2 Lf of tetanus toxoid and 2 Lf of diphtheri a toxoid) DoD influenza virus vaccine, split virus (incl. purified surface antigen)-reti red CODE 1 2004 Unknown, Provider [id number] 15 Sanofi Pasteur (PMC) complet ed influenza virus vaccine, split virus (incl. purified surface antigen)- retired CODE DoD Encounters Combined list of: 1) Encounters from Department of Veterans Affairs facilities going backup to the last 18 months, not all VA inpatient encounters are included; 2) Encounters from the Department of Defense facilities going backup to 280 months. Location Location Details Encounter Type Encounter Number Reason For Visit Attending Provider ADM Date DC Date Status Disposition Source [address] [place] [address])([facility] Practice Non-GME FHI1) TELE CONSULT [id number] refill request JEANETTE CLEMONS 06/[address] [place] [address])(F amily Practic e Non-GME FHI1) [address] [place], [place] [address]B [facility] Practice Non-GME FHI1) OUTPATIENT [id number] pain in right breast ALINA FRANKS 06/23 Released w/o Limitations [address] [place], [place] [address]B [facility])(F amily Practic e Non-GME FHI1) [address] [place], [place] [address]B [facility] Practice Non-GME FHI1) OUTPATIENT [id number] pap breast exam LESLIE LUEVANO 07/29 Released w/o Limitations [address] [place], [place] [address]B [facility])(F amily Practic e Non-GME FHI1) [address] [place], [place] [address]B [facility] Practice Non-GME FHI1) OUTPATIENT [id number] LESLIE Suarez 07/31 Released w/o Limitations [address] [place], [place] [address]B [facility])(F amily Practic e Non-GME FHI1) [address] [place], [place] [address]B [facility] Practice Non-GME FHI1) OUTPATIENT [id number] hx of migrain es/MADDEN x 4 days/me ds nt working LESLIE LUEVANO 11/20 Released w/o Limitations [address] [place], [place] [address]B [facility])(F amily Practic e Non-GME FHI1) [address] [place], [place] [address]B [facility] TELE CONSULT [id number] RX REFILL HEBER HENRIQUEZ 12/[address] [place] [address] [employer] [facility]F amily Practic e Non-GME FHI1) [address] [place] [address] [employer] [facility] Practice Non-GME FHI1) OUTPATIENT [id number] flu shot AUGUSTIN SNYDER 01/13 Released w/o Limitations [address] [place] [address] [employer] [facility])(F amily Practic e Non-GME FHI1) [address] [place] [address] Daljit B [facility])([facility] Practice Non-GME FHI1) OUTPATIENT [id number] TETANUS SHOT EMILY DELATORRE 01/13 Released w/o Limitations [address] [place] [address] Daljit B [facility])(F amily Practic e Non-GME FHI1) [address] [place] [address] Daljit B [facility])([facility] Practice Non-GME FHI1) OUTPATIENT [id number] Pap/Ashley ual exam ALISON CARDOSO 08/18 Released w/o Limitations [address] [place] [address] Daljit B [facility])(F amily Practic e Non-GME FHI1) [address] [place] [address] Daljit B [facility])([facility] Practice Non-GME FHI1) OUTPATIENT [id number] fol on labs KEVON GONZALEZ 10/22 Released w/o Limitations [address] [place] [address] Daljit B [facility])(F amily Practic e Non-GME FHI1) [address] [place] [address] [employer] [facility] Practice Non-GME FHI1) TELE CONSULT [id number] Med refill - MAU Moreno 03/[address] [place] [address] Daljit B [facility])(F amily Practic e Non-GME FHI1) [address] [place] [address] [employer] [facility])([facility] Practice Non-GME FHI1) OUTPATIENT [id number] pap smear KATELIN DESHPANDE 08/02 Released w/o Limitations [address] [place] [address] Daljit B [facility])(F amily Practic e Non-GME FHI1) [address] [place] [address] [employer] [facility] Practice Non-GME FHI1) TELE CONSULT [id number] Lab results . KATELIN DESHPANDE 08/[address] [place] [address] Daljit B [facility])(F amily Practic e Non-GME FHI1) [address] [place] [address] [employer] [facility])([facility] Practice Non-GME FHI1) TELE CONSULT [id number] Pap Smear Notific CLARA Wiseman 08/[address] [place] [address] Daljit B [facility])(F amily Practic e Non-GME FHI1) [address] [place], [place] [address]B [facility])(Parts Designer ecology) OUTPATIENT [id number] repeat pap smear ALEX LEMA 09/02 Released w/o Limitations [address] [place] [address] [employer] [facility])(G ynecolo gy) [address] [place] [address] [employer] [facility]Fam sunny Practice Non-GME FHI1) OUTPATIENT [id number] occas muscle pain in chest KEVON GONZALEZ 09/02 Released w/o Limitations [address] [place] [address] Daljit B ([facility]F amily Practic e Non-GME FHI1) [address] [place] [address] Daljit B [facility] Practice Non-GME FHI1) TELE CONSULT [id number] rewrite [place] - CLARA Yeboha 09/[address] [place] [address] Daljit B [facility])(F amily Practic e Non-GME FHI1) [address] [place] [address] [employer] [facility])([facility]am sunny Practice Non-GME FHI1) TELE CONSULT [id number] [facility] Baxter 11/[address] [place] [address] Daljit STEPHANIEB [facility])(F amily Practic e Non-GME FHI1) [address] [place] [address] [employer] [facility])([facility] Practice Non-GME FHI1) TELE CONSULT [id number] [facility] spaldingTRAVIS Baxter D 12/[address] [place] [address] [employer] [facility])(F amily Practic e Non-GME FHI1) [address] [place] [address] [employer] [facility]Fam sunny Practice Non-GME FHI1) TELE CONSULT [id number] [facility] SHILA Dooley 03/[address] [place] [address] [employer] [facility])(F amily Practic e Non-GME FHI1) [address] [place] [address])(Parts Designer ecology) TELE CONSULT [id number] estroge n cream ALEX LEMA R 07/[address] [place] [address] Daljit [facility])(G ynecolo gy) [address] [place] [address])([facility] Practice Non-GME FHI2) TELE CONSULT [id number] rewrite meds/SHILA Ferrell 08/[address] [place] [address])(F amily Practic e Non-GME FHI2) [address] [place] [address])(Parts Designer ecology) OUTPATIENT [id number] annual wwe - [id number] ALEX LEMA R 08/17 Released w/o Limitations [address] [place] [address])(G ynecolo gy) [address] [place] [address])(Parts Designer ecology) TELE CONSULT [id number] results ALEX LEMA 08/[address] [place] [address])(G ynecolo gy) [address] [place] [address])(Parts Designer ecology) TELE CONSULT [id number] unsat pap HARDIK JADE D 08/[address] [place] [address])(G ynecolo gy) [address] [place] [address])(Parts Designer ecology) TELE CONSULT [id number] results and new plan of care ALEX LEMA R 09/[address] [place] [address] Daljit [facility])(G ynecolo gy) [address] [place] [address])([facility] Practice Non-GME FHI2) TELE CONSULT [id number] rewrite prescri ptions/ SHILA Dooley 09/[address] [place] [address])(F amily Practic e Non-GME FHI2) [address] [place] [address])(Parts Designer ecology) TELE CONSULT [id number] Occult results call to pt- EDIN Spencer 09/[address] [place] [address] Daljit [facility])(G ynecolo gy) [address] [place] [address])(Parts Designer ecology) OUTPATIENT [id number] repeat pap insuffi cient cells TOREY ALEX R 09/25 Released w/o Limitations [address] [place] [address] Group [employer] ([facility]G ynecolo gy) [address] [place] [address] Group [employer] ([facility])([facility] Practice Non-GME FHI2) OUTPATIENT [id number] kumar latif under toenail s, [phone] RODYDONALNE 02/26 Released w/o Limitations [address] [place] [address] [employer] ([facility])(F amily Practic e Non-GME FHI2) [address] [place] [address] Group [employer] [facility])([facility] sunny Practice Non-GME FHI1) TELE CONSULT [id number] Rx razio dawson-Krish in ANICETO ALMANZAR 02/[address] [place] [address] [employer] [facility])(F amily Practic e Non-GME FHI1) [address] [place] [address] Daljit BROWNB ([facility]Sco tt [facility] Fam Res Tm Red) OUTPATIENT [id number] Lisa shabazz [facility] - KEVON GONZALEZ 04/30 Released w/o Limitations [address] [place] [address] Group [employer]it BROWNB ([facility]S cott [facility] Fam Res Tm Red) [facility] Ad[employer]it [facility])(Phy sical Therapy) OUTPATIENT [id number] TENDONI JUDITH TOPETE 05/04 Released w/o Limitations [address] [place] [address] Daljit BROWNB ([facility]P hysical Therapy ) [address] [place] [address] [employer]jit BROWNB ([facility]Sco tt [facility] Fam Res Tm Red) TELE CONSULT [id number] Lisa/ needs rx ANICETO ALMANZAR 05/[address] [place] [address] Group [employer] ([facility]S cott [facility] Fam Res Tm Red) [facility] Medical [facility] [employer] ([facility])(Phy sical Therapy) OUTPATIENT [id number] JUDITH MELENDEZ 05/29 Released w/o Limitations [address] [place] [address] Group [employer] [facility])(P hysical Therapy ) [address] [place] [address] [employer] [facility]Sco tt [facility] Fam Res Tm Red) TELE CONSULT [id number] RX Refill - PA NINI Lao 06/[address] [place] [address] [employer] ([facility]S cott [facility] Fam Res Tm Red) [employer] ([facility])(War rior Op Med Cln Tm A Ad) OUTPATIENT [id number] recheck and refill on allergi es and meds [phone] KEVON GONZALEZ Lisa 07/26 Released w/o Limitations Medical Group [employer] ([facility]W arrior Op Med Cln Tm A Ad) [employer] [place]Occ upational Therapy) OUTPATIENT [id number] LATERAL EPICOND YLITIS (TENNIS ELBOW) RIGHT SOOTS, SEVERINO L 07/31 Released w/o Limitations [employer] ([facility]O ccupati onal Therapy ) [facility] [employer] ([facility]Parts Designer ecology) OUTPATIENT [id number] annual ALEX LEMA 08/13 Released w/o Limitations [employer] ([facility]G ynecolo gy) [facility] [employer] ([facility]Parts Designer ecology) TELE CONSULT [id number] results ALEX LEMA 08/13[facility] [employer] ([facility]G ynecolo gy) [facility] [employer] ([facility]Parts Designer ecology) OUTPATIENT [id number] walkin for bp ck ALEX LEMA 08/23 Released w/o Limitations [employer] ([facility]G ynecolo gy) [facility] [employer] ([facility]Occ upational Therapy) OUTPATIENT [id number] TORRI ZAMUDIO 08/23 Released w/o Limitations [employer] ([facility]O ccupati onal Therapy ) [employer] ([facility]Parts Designer ecology) OUTPATIENT [id number] BP Check ALEX LEMA 08/29 Released w/o Limitations [employer] ([facility]G ynecolo gy) [facility] [employer] ([facility]Phy sical Therapy) OUTPATIENT [id number] VINI NORTON 08/29 Released w/o Limitations [employer] ([facility]P hysical Therapy ) [address] [place] [address] [employer] [facility])(War rior Op Med Cln Tm A Ad) OUTPATIENT [id number] hyperte nsion KEVON GONZALEZ 09/04 Released w/o Limitations [facility])(W arrior Op Med Cln Tm A Ad) [address] [place] [address])(Car diology (MTF)) OUTPATIENT [id number] Blood Pressur e Isolate d Elevate d LIPOFF, JOMAR I 09/05 Released w/o Limitations [facility] ([facility]C ardiolo gy (MTF)) [address] [place] [address])(War rior Op Med Cln Tm A Ad) TELE CONSULT [id number] PCM: SHAMIKA Gonzalez; stress test JEANETTE CLEMONS 09/[address] [place] [address])(W arrior Op Med Cln Tm A Ad) [address] [place] [address])(War rior Op Med Cln Tm A Ad) OUTPATIENT [id number] HTN ISSUES KEVON GONZALEZ 09/06 Released w/o Limitations [facility] [employer] [facility])(W arrior Op Med Cln Tm A Ad) [address] [place] [address])(Car diology (MTF)) OUTPATIENT [id number] EKG LIPOFF, JOMAR I 09/10 Released w/o Limitations [address] [place] [address])(C ardiolo gy (MTF)) [address] [place] [address])(War rior Op Med Cln Tm A Ad) TELE CONSULT [id number] call back/TRACEY Jackson 09/[address] [place] [address] [employer] [facility])(W arrior Op Med Cln Tm A Ad) [address] [place] [address])(War rior Op Med Cln Tm A Ad) OUTPATIENT [id number] f/u HTN KEVON GONZALEZ 09/28 Released w/o Limitations [address] [place] [address] [employer] [facility])(W arrior Op Med Cln Tm A Ad) [address] [place] [address])(Phy sical Therapy) OUTPATIENT [id number] VINI NORTON 10/05 Released w/o Limitations [address] [place] [address] [employer] ([facility]P hysical Therapy ) [address] [place] [address] [employer]it [facility]Car diology (MTF)) OUTPATIENT [id number] Blood Pressur e Isolate d Elevate d JOMAR VANG I 10/08 Released w/o Limitations [address] [place] [address] [employer] STEPHANIE[facility] ([facility]C ardiolo gy (MTF)) [address] [place] [address] [employer]Phy sical Therapy) OUTPATIENT [id number] VINI NORTON 10/09 Released w/o Limitations [address] [place] [address] [employer] STEPHANIE[facility] ([facility]P hysical Therapy ) [address] [place] [address] [facility]it [facility]War rior Op Med Cln Tm A Ad) TELE CONSULT [id number] TRACEY Velázquez 10/[address] [place] [address] [facility]jit [facility]W arrior Op Med Cln Tm A Ad) [address] [place] [address] [employer]it [facility]Phy sical Therapy) TELE CONSULT [id number] Discuss current plan of care ALINA DRISCOLL 10/[address] [place] [address] [employer]it BUSTER ([facility]P hysical Therapy ) [address] [place] [address] Daljit [facility])(War rior Op Med Cln Tm A Ad) OUTPATIENT [id number] F/U on Cervica l MRI results KEVON GONZALEZ 10/22 Released w/o Limitations [address] [place] [address] [employer] [facility]W arrior Op Med Cln Tm A Ad) [address] [place] [address] [employer]it [facility]War rior Op Med Cln Tm A Ad) OUTPATIENT [id number] f/u barrium test - KEVON GONZALEZ 11/16 Released w/o Limitations [address] [place] [address] [employer]W arrior Op Med Cln Tm A Ad) [address] [place] [address] [employer]it [facility]Fam sunny Med Tm B Non-AD BCC) TELE CONSULT [id number] notes request - MARY ALICE Soto 11/[address] [place] [address] [employer] [facility]F amily Med Tm B Non-AD BCC) [address] [place] [address] [employer] [facility]IE[facility] ([facility]Fam sunny Med Tm B Non-AD BCC) OUTPATIENT [id number] fol hand and stomach LAMONTE ACOSTA 01/10 Released w/o Limitations [address] [place] [address] [employer] STEPHANIE[facility] ([facility]F amily Med Tm B Non-AD BCC) [address] [place] [address] [employer] STEPHANIE[facility] ([facility]Fam sunny Med Tm B Non-AD BCC) OUTPATIENT [id number] ongoing headach e follow up [id number] LAMONTE ACOSTA 07/09 Released w/o Limitations [address] [place] [address] [employer] STEPHANIE[facility] ([facility]F amily Med Tm B Non-AD BCC) [address] [place] [address] [employer] STEPHANIE[facility] ([facility]Fam sunny Med Tm B Non-AD BCC) TELE CONSULT [id number] Inform of Radiolo gy results MIRANDA OLVERA 07/[address] [place] [address] [employer] [facility]IE[facility] ([facility]F amily Med Tm B Non-AD BCC) [address] [place] [address] [facility]it [facility] ([facility]Parts Designer ecology) OUTPATIENT [id number] annual exam [id number] ALEX LEMA 08/21 Released w/o Limitations [address] [place] [address] [employer] STEPHANIE[facility] ([facility]G ynecolo gy) [address] [place] [address] [employer]it B [facility]Parts Designer ecology) TELE CONSULT [id number] results ALEX LEMA 08/[address] [place] [address] [employer]G ynecolo gy) [address] [place] [address] [employer]Fam sunny Med Tm B Non-AD BCC) TELE CONSULT [id number] concern s with taking 600mg ibruprf en/dent ist ordered pt already taking celebre x NORMA MERCADO 10/[address] [place] [address] [employer] ([facility]F amily Med Tm B Non-AD BCC) [address] [place] [address] [employer] ([facility]Fam sunny Med Tm B Non-AD BCC) TELE CONSULT [id number] cleeary pt wants labs order for vit-d / [id number] NORMA MERCADO 12/[address] [place] [address] [employer] ([facility]F amily Med Tm B Non-AD BCC) [address] [place] [address] [employer] ([facility]Fam sunny Med Tm B Non-AD BCC) OUTPATIENT [id number] painful lumps under armpit - [id number] LAMONTE ACOSTA 12/20 Released w/o Limitations [employer] ([facility]F amily Med Tm B Non-AD BCC) [facility] [employer] [facility]OWN[facility]Ob/ Parts Designer) TELE CONSULT [id number] vit D results ALEX LEMA 12/[address] [place] [address] Group [employer] ([facility]O b/Parts Designer) [facility] [employer] [facility]Fam sunny Med Tm B Non-AD BCC) TELE CONSULT [id number] Meds refill/ [place]/ fxs NORMA MERCADO 05/[address] [place] [address] Group [employer] [facility]F amily Med Tm B Non-AD BCC) [address] [place] [address] [employer]War rior Op Med Cln Tm A Ad) OUTPATIENT [id number] f/u meds... [id number] LAMONTE ACOSTA 09/08 Released w/o Limitations [facility] [employer] [facility]W arrior Op Med Cln Tm A Ad) [facility] [employer] [facility]Parts Designer ecology) OUTPATIENT [id number] annual wwe - [id number] ALEX LEMA 09/12 Released w/o Limitations [address] [place] [address] Group [employer] [facility]G ynecolo gy) [facility] [employer] [facility]Parts Designer ecology) TELE CONSULT [id number] Discuss Bone density results JULITO ALARCON 09/[address] [place] [address] [employer] [facility]G ynecolo gy) [facility] [employer] [facility]Parts Designer ecology) TELE CONSULT [id number] results ALEX LEMA 09/[address] [place] [address] [employer] [facility]G ynecolo gy) [address] [place] [address] [employer] [facility]Parts Designer ecology) TELE CONSULT [id number] f/u ALEX LEMA 10/[address] [place] [address] [employer] [facility]G ynecolo gy) Procedures Combined list of: 1) Procedures from Department of Veterans Affairs facilities going back up to thelast 18 months, not all OR non-surgical procedures are included; 2) All procedures from the Department of Defense facilities. Procedure Procedure Type Code Date Perfomer Comments Sourc e No data available for this section Ambulatory Pharmacy INSUFFLATION OF FALLOPIAN TUBE 1988 [facility] LAPAROSCOPY 1988 [facility] SCREENING PAPANICOLAOU SMEAR; OBTAINING, PREPARING AND [...] 0.5 ML DOSAGE, FOR INTRAMUSCULAR USE 2008 [facility] THERAPEUTIC PROCEDURE, 1 OR MORE AREAS, [...] 2008 [facility] BLOOD PRESSURE MEASURED (CKD)(DM) 2008 [facility] BLOOD PRESSURE MEASURED (CKD)(DM) 2008 [facility] SCREENING [...] EQUIP) DIR ONE-ON-ONE CONT,EA 15 MINUTES 2008 [facility] SCREENING PAPANICOLAOU SMEAR; OBTAINING, PREPARING AND [...] CERVICAL OR VAGINAL SMEAR TO LABORATORY 2007 [facility] ELECTROCARDIOGRAM, ROUTINE ECG WITH AT LEAST 12 LEADS; WITH INTERPRETATION AND REPORT 2006 [facility] SCREENING PAPANICOLAOU SMEAR; OBTAINING, PREPARING AND CONVEYANCE OF CERVICAL OR VAGINAL SMEAR TO LABORATORY 2006 [facility] TETANUS AND DIPHTHERIA TOXOIDS (TD) ADSORBED WHEN ADMINISTERED TO INDIVIDUALS 7 YEARS OR OLDER, FOR INTRAMUSCULAR USE 2004 [facility] INFLUENZA VIRUS VACCINE, TRIVALENT (IIV3), SPLIT VIRUS, 0.5 ML DOSAGE, FOR INTRAMUSCULAR USE 2004 [facility] ELECTROCARDIOGRAM, ROUTINE ECG WITH AT LEAST 12 LEADS; WITH INTERPRETATION AND REPORT 2003 [facility] PHYS/OTH QUALIFIED HEALTH SENIOR MANUFACTURING TEST ENGINEER QUALIFIED,EDUCATION,TR SHADYN,LICENSURE/REGULATI ON (WHEN APPLICABLE) EDUC SER RENDERED TO PATS IN A GRP SETTING (EG,,OBESITY,O R DIABETIC INSTRUCT) 2002 [facility] SUPP &MATERIAL (EXCEPT SPECTACLE),PROVID,THE PHYS/OTH QUALIFIED HEALTH SENIOR MANUFACTURING TEST ENGINEER OVER &ABOVE THOSE USUALLY INCLD W THE OFFICE VISIT/OTH SER RENDERED (LIST DRUG,TRAYS,SUPP,OR MATERIAL PROVID) 2002 [facility] APPLICATION OF A MODALITY TO 1 OR MORE AREAS; IONTOPHORESIS, EACH 15 MINUTES 2002 [facility] SUPP &MATERIAL (EXCEPT SPECTACLE),PROVID,THE PHYS/OTH QUALIFIED HEALTH SENIOR MANUFACTURING TEST ENGINEER OVER &ABOVE THOSE USUALLY INCLD W THE OFFICE VISIT/OTH SER RENDERED (LIST DRUG,TRAYS,SUPP,OR MATERIAL PROVID) 2002 [facility] APPLICATION OF A MODALITY TO 1 OR MORE AREAS; IONTOPHORESIS, EACH 15 MINUTES 2002 [facility] APPLICATION OF A MODALITY TO 1 OR MORE AREAS; ULTRASOUND, EACH 15 MINUTES 2002 [facility] SUPP &MATERIAL (EXCEPT SPECTACLE),PROVID,THE PHYS/OTH QUALIFIED HEALTH SENIOR MANUFACTURING TEST ENGINEER OVER &ABOVE THOSE USUALLY INCLD W THE OFFICE VISIT/OTH SER RENDERED (LIST DRUG,TRAYS,SUPP,OR MATERIAL PROVID) 2002 [facility] SUPP &MATERIAL (EXCEPT SPECTACLE),PROVID,THE PHYS/OTH QUALIFIED HEALTH SENIOR MANUFACTURING TEST ENGINEER OVER &ABOVE THOSE USUALLY INCLD W THE OFFICE VISIT/OTH SER RENDERED (LIST DRUG,TRAYS,SUPP,OR MATERIAL PROVID) 2002 [facility] SCREENING PAPANICOLAOU SMEAR; OBTAINING, PREPARING AND CONVEYANCE OF CERVICAL OR VAGINAL SMEAR TO LABORATORY 2002 [facility] EDUCATIONAL SUPPLIES, SUCH BOOKS, TAPES, AND PAMPHLETS, FOR THE PATIENT'S EDUCATION AT COST TO PHYSICIAN OR OTHER QUALIFIED HEALTH SENIOR MANUFACTURING TEST ENGINEER 2002 [facility] WRIST HAND ORTHOSIS, WRIST EXTENSION CONTROL COCK-UP, NON MOLDED, PREFABRICATED, [id number] 2002 [facility] ONYCHOPLASTY 1992 [facility] OTHER EXCISION OR AVULSION OF CRANIAL AND PERIPHERAL NERVES 1992 [facility] Screening papanicolaou smear; obtaining, preparing and conveyance of cervical or vaginal smear to laboratory 2009 ALEX LEMA [facility] Non-Physician Phone Call To Patient/Provider Brief (5-10min) Non-Physician Phone Call To Patient/Provider Brief (5-10min) [id number] 2009 MIRANDA OLVERA [facility] Influenza Split Virus Vaccine 0.5mL Dosage Intramuscular Preservative Free 2008 LAMONTE ACOSTA [facility] A isted Exercises For ROM Assisted Exercises For ROM 58304 2008 ALINA DRISCOLL 10 min instruction [facility] Physical Therapy Service Re-Evaluation Physical Therapy Service Re-Evaluation 21176 2008 VINI NORTON [facility] Cardiac Stre Test Interpretation And Report Only Cardiac Stress Test Interpretation And Report Only 15049 2008 MAYA CHAVEZ [facility] Physical Therapy Service Evaluation Physical Therapy Service Evaluation 44951 2008 VINI NORTON [facility] ECG Interpretation And Report Only ECG Interpretation And Report Only 45267 2008 KERRI BECKER [facility] Non-Physician Phone Call To Patient/Provider Brief (5-10min) Non-Physician Phone Call To Patient/Provider Brief (5-10min) 28856 2008 DEONTEJEANETTE [facility] Cardiac Stre Test With Physician Supervision, Interpretation, And Report Cardiac Stress Test With Physician Supervision, Interpretation, And Report 44348 2008 MEKA NEAL [facility] Physical Therapy Service Re-Evaluation Physical Therapy Service Re-Evaluation 66076 2008 VINI NORTON [facility] Phys Therapy Education Self Care Training - Per 15 Minutes Phys Therapy Education Self Care Training - Per 15 Minutes [id number] 2008 TORRI ZAMUDIO [facility] Screening papanicolaou smear; obtaining, preparing and conveyance of cervical or vaginal smear to laboratory 2008 ALEX LEMA Splint, prefabricated, elbow 2008 SEVERINO ORTIZ [facility] Splint, prefabricated, wrist or ankle 2008 SOOTSSEVERINO [facility] Occupational Therapy Evaluation Occupational Therapy Evaluation 82571 2008 SEVERINO ORTIZ [facility] Non-Physician Phone Call To Patient/Provider Brief (5-10min) Non-Physician Phone Call To Patient/Provider Brief (5-10min) 51219 2008 NINI JOE [facility] Physical Therapy Service Re-Evaluation Physical Therapy Service Re-Evaluation 38649 2008 JUDITH MELENDEZ [facility] Phys Therapy Education Self Care Training - Per 15 Minutes Phys Therapy Education Self Care Training - Per 15 Minutes [id number] 2008 JUDITH MELENDEZ [facility] Physical Therapy Service Evaluation Physical Therapy Service Evaluation 95509 2008 JUDITH MELENDEZ [facility] Screening papanicolaou smear; obtaining, preparing and conveyance of cervical or vaginal smear to laboratory 2007 ALEX LEMA Non-Physician Phone Call To Patient/Provider Brief (5-10min) Non-Physician Phone Call To Patient/Provider Brief (5-10min) [phone] SHILA MORALES [facility] Screening papanicolaou smear; obtaining, preparing and conveyance of cervical or vaginal smear to laboratory 2007 ALEX LEMA [facility] Non-Physician Phone Call To Patient/Provider Brief (5-10min) Non-Physician Phone Call To Patient/Provider Brief (5-10min) [id number] 2007 SHILA MORALES [facility] Electrocardiogram Electrocardiogram 67508 09/02 KEVON GONZALEZ [facility] Screening papanicolaou smear; obtaining, preparing and conveyance of cervical or vaginal smear to laboratory 2006 NINI JOE [facility] Influenza Split Virus Vaccine 0.5mL Dosage Intramuscular 2004 AUGUSTIN SNYDER [facility] Immunization Administration By Injection, One Vaccine Immunization Administration By Injection, One Vaccine 98002 2004 EMILY KENT Td Vaccine Seven Years Of Age And Above Td Vaccine Seven Years Of Age And Above 65187 2004 EMILY KENT [facility] Social History Combined list of available smoking, [...] Plan No data available for this section 03/31/2024 Ambulatory Pharmacy Functional Status Combined list of recent functional and cognitive assessments recorded at Department of Defense and Veterans Affairs (VA).VA Functional [place] Measurement (FIM) Scale: 1 = Total Assistance (Subject = 0% +), 2 = Maximal Assistance (Subject = 25% +), 3 = Moderate Assistance (Subject = 50% +), 4 = Minimal Assistance (Subject = 75% +), 5 = Supervision, 6 = Modified [place] (Device), 7 = Complete [place] (Timely, Safely). Assessment Date/Time Source Assessment Type Assessment Skill Assessment Score Assessment Details No data available for this section
--- OUTSIDE RECORDS SUMMARY | 2024-03-31 00:30 | XMS_ITS | Clinical Summary ---
Author Organization [facility] Address [address] [place] [address] Care Team Providers Care Vacuum Drum Drier Operator Name Role Phone Unavailable Primary Care Provider [...]
--- OUTSIDE RECORDS SUMMARY | 2024-03-31 00:31 | XMS_ITS | Referral Summary ---
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 Gender Identity Not on file Sexual Orientation Not on file Last Filed Vital Signs Vital Sign Reading Time Taken Comments Blood Pressure 124/75 07/08/2017 1:39 PM CDT Pulse 61 07/08/2017 1:39 PM CDT Temperature 36.5 C (97.7 F) 11/28/2019 2:58 PM CDT Respiratory Rate - - Oxygen Saturation 97% 07/08/2017 1:39 PM CDT Inhaled Oxygen Concentration - - Weight 72.8 kg (160 lb 9.6 oz) 06/21/2023 1:02 P M CDT Height 173 cm (5' 8.11 ) 06/21/2023 1:02 PM CDT Body Mass Index 24.34 06/21/2023 1:02 PM CDT Plan of Treatment Not on file Insurance FOR LIFE MEDICARE MEDICARE FOR LIFE MEDICARE [facility] Address: [address] [address] [place] [address] FOR LIFE Care Teams Accounts Receivable Analyst Relationship Specialty Start Date End Date Gorge Siddiqui MD [address] [place], [place] [id number] PCP - General 12/10/16
--- OUTSIDE RECORDS SUMMARY | 2024-03-31 00:31 | XMS_ITS | Clinical Summary ---
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
[2024-03-31 06:10] VITALS: BP 136/60; PULSE 67; RESP 18; TEMP 36.2; O2SAT 100
[2024-03-31] MEDS: LACTATED RINGERS 1,000 ML 30 ML IV CONT (06:30)
--- NOTE | 2024-03-31 07:16 | WPDHPUPDATE1 ---
History and Physical Update Update Date/Time: 03/31/24 07:16 History and Physical has been reviewed, including an updated exam of the patient. There are NO changes in the patient's condition. Risks, benefits, and alternatives have been discussed and questions answered. Patient agrees to proceed with procedure.
[2024-03-31] MEDS: ceFAZolin 2 GM/D5W 50 ML 2 GM/50 ML BAG IVPB (07:27)
[2024-03-31] MEDS: BUPIVACAINE/EPINEPHRINE 0.5% 30 ML VIAL INFILTRATE (07:51)
--- NOTE | 2024-03-31 08:02 | W.PM.PROC2 ---
Procedure Note - Detailed Date of Procedure 03/31/24 Pre-op Diagnosis stress incont Post-op Diagnosis Same Procedure Performed mid urethral sling cystoscopy Surgeon Jose Taylor MD Anesthesia MAC and Local Indications This is a female with confirm stress urinary incontinence. She desires surgical correction. She understands the risks of bleeding, infection, injury to the urinary tract, vaginal mesh extrusion, urinary tract mesh erosion, obstructive voiding requiring a secondary procedure, hip and leg pain, dyspareunia, inability to improve overactive bladder symptoms. She agrees to proceed. Description of Procedure She was correctly identified. Informed consent obtained. She was brought the operating room. She was given appropriate anesthesia. She was given appropriate perioperative antibiotics. A time-out performed. I marked out the site of the inner thigh incisions. I anesthetized the skin and made those incisions. I anesthetized the anterior vaginal wall over the mid urethra. Atrophic vaginal tissues are noted. I made a 1 cm incision. I dissected out laterally taking great care not to injure the refilled vaginal wall. I passed the helical trocars. First on the left. Then on the right. I did this from the thigh incision towards the vaginal incision. The sling was connected to the trocars and brought out through the thigh incision. I tensioned the sling appropriately. I cut and the plastic sheaths. I then closed the incision with 2 0 Vicryl. On cystoscopy there is no tumors or surgical artifact. There was no surgical artifact in the urethra. I cut the excess sling material. Close incisions with glue. She was awakened and transferred to the PACU in stable condition. Implants Urethral sling Estimated Blood Loss 10 Drains No Packing No Pathology None sent Complications No immediate complications Condition Stable Disposition PACU
[2024-03-31 08:05] VITALS: BP 136/52; PULSE 62; RESP 16; O2SAT 98
[2024-03-31 08:30] VITALS: BP 176/56; PULSE 58; RESP 16
[2024-03-31 09:00] VITALS: BP 139/60; PULSE 61; RESP 16
== END 2024-03-31 09:09 | disposition home or self-care (01) ==
PROVIDERS: PCP Family Medicine; Visit Provider Urology
PROC: (CPT 57288; principal; 2024-03-31 07:30)
DX: N39.3 Stress incontinence (female) (male) (principal); Z87.891 Personal history of nicotine dependence
CPT/HCPCS: 57288; C1771; J0690; J2003; J2405; J2704; J3010; J7030; J7120

== ENCOUNTER 2024-04-25 08:14 | Outpatient (CLI) | payer MEDICARE, OTHER, SELFPAY | END 2024-04-25 08:15 | disposition home or self-care (01) | LOC: ANHCARD 08:15 | PROVIDERS: PCP Family Medicine; Visit Provider Family Medicine | DX: R94.31 Abnormal electrocardiogram [ECG] [EKG] (principal); I25.2 Old myocardial infarction | CPT/HCPCS: 78452; 93017; A9502; J2785 ==

== ENCOUNTER 2024-05-02 13:33 | Outpatient (CLI) | payer MEDICARE, OTHER, SELFPAY ==
--- NOTE | ~2024-05-02 | US_ITS ---
EXAMINATION: US soft tissue LE RT DATE: 05/02/2024 14:11 INDICATION: Other bursal cyst, right ankle and foot. TECHNIQUE: Multiple grayscale and Doppler ultrasound images of the right lower limb were obtained. COMPARISON: Right foot radiographs 04/21/24 FINDINGS: In the dorsum of the right foot, there are approximately 5 hypoechoic and anechoic masses m easuring up to 7 mm. IMPRESSION: 1. Multiple subcentimeter masses in the dorsum of the right foot, which may be ganglion cysts and/or other benign mass such as venous malformation. Neoplasm is not excluded. Consider MRI without and wit h contrast. Reviewed, dictated and finalized at location B. IMPRESSION: 1. Multiple subcentimeter masses in the dorsum of the right foot, which may be ganglion cysts and/or other benign mass such as venous malformation. Neoplasm i s not excluded. Consider MRI without and with contrast.
--- OUTSIDE RECORDS SUMMARY | 2024-05-02 15:05 | XMS_ITS | Clinical Summary ---
Author Organization [facility] Address [address] [place] [address] Care Team Providers Care Yard Hand Name Role Phone Unavailable Primary Care Provider [...]
--- OUTSIDE RECORDS SUMMARY | 2024-05-02 15:05 | XMS_ITS | Referral Summary ---
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
--- OUTSIDE RECORDS SUMMARY | 2024-05-02 15:05 | XMS_ITS | Clinical Summary ---
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 Gender Identity Not on file Sexual Orientation [...] Pneumococcal vaccine 65+ (2 of 2 - PPSV23) 03/17/2013 03/17/2012 Well Visit 65+ 10/04/2019 DTaP/Tdap/Td Vaccine (2 - Td or Tdap) 09/21/2022 09/21/2012 Influenza Vaccine (#1) 2023 , 10/29/2017, 12/02/2016, Additional history exists Insurance FOR LIFE MEDICARE MEDICARE FOR LIFE MEDICARE [facility] Address: [address] [address] [place] [address] FOR LIFE Care Teams Silk Washing Machine Operator Relationship Specialty Start Date End Date Gorge Siddiqui MD [address] [place] [address] PCP - General 12/10/16
== END 2024-05-02 13:34 | disposition home or self-care (01) ==
PROVIDERS: PCP Family Medicine; Visit Provider Orthopaedic Surgery
DX: R22.41 Localized swelling, mass and lump, right lower limb (principal); M71.371 Other bursal cyst, right ankle and foot
CPT/HCPCS: 76882

== ENCOUNTER 2024-05-30 09:37 | Outpatient (CLI) | payer MEDICARE, OTHER, SELFPAY ==
--- NOTE | ~2024-05-30 | MR_ITS ---
EXAMINATION: MR foot RT wo/w con DATE: 05/30/2024 10:38 INDICATION: Bursal cyst at the right foot TECHNIQUE: Magnetic resonance imaging (MRI) of the right fore/mid foot was performed without intraven ous contrast. Sequences included axial, sagittal and coronal T1-weighted FSE, sagittal fluid sensitiv e FSE STIR, axial and coronal T2-weighted FS FSE, axial T1-weighted FS FSE and postcontrast axial, sa gittal and coronal T1-weighted FS FSE. COMPARISON: Ultrasound dated 05/02/2024 FINDINGS: 4 mm T2 intense nonenhancing cyst in the soft tissues situated along side the flexor digitorum longus tendon centered at the fourth toe and the extensor digitorum brevis tendon extending to the third to e at the level of the distal diaphysis of the metatarsals. This appears significantly smaller than th e multiloculated cystic structure identified at the time of the prior ultrasound. No other abnormal m asses, fluid collection or abnormal enhancing lesions identified. Bone alignment is normal. No fracture or pathologic marrow replacing process. Intrinsic musculature o f the foot is unremarkable. The visualized portions of the flexor and extensor tendons are normal. Sp ondylitic ligament complex as well as the collateral ligament complex at the metatarsophalangeal and interphalangeal joints are normal. IMPRESSION: 1. Single residual 3 mm nonenhancing cystic lesion in the soft tissues dorsal to the intermetatarsal space between the third and fourth metatarsals at the site of a prior larger multiloculated cystic st ructure as seen on ultrasound dated 05/02/2024. This could represent a ganglion cyst or interval impro vement in a prior small hematoma or abscess in the appropriate clinical setting. Reviewed, dictated and finalized at location A. IMPRESSION: 1. Single residual 3 mm nonenhancing cystic lesion in the soft tissues dorsal t o the intermetatarsal space between the third and fourth metatarsals at the sit e of a prior larger multiloculated cystic structure as seen on ultrasound dated 05/02/2024. This could represent a ganglion cyst or interval improvement in a p rior small hematoma or abscess in the appropriate clinical setting.
--- OUTSIDE RECORDS SUMMARY | 2024-05-30 10:33 | XMS_ITS | Referral Summary ---
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
--- OUTSIDE RECORDS SUMMARY | 2024-05-30 10:33 | XMS_ITS | Clinical Summary ---
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
--- OUTSIDE RECORDS SUMMARY | 2024-05-30 10:33 | XMS_ITS | Clinical Summary ---
Author Organization [facility] Address [address] [place] [id number] Care Team Providers Care Shactor Helper Name Role Phone Unavailable Primary Care [...] of 1 - PCV) 10/04/2019 COVID-19 Vaccine ( - 2023-2 5 season) 2023 RSV Immunization or 60+ Years (1 [...]
--- OUTSIDE RECORDS SUMMARY | 2024-05-30 10:33 | XMS_ITS | Continuity of Care Document ---
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 Medication Details Route Status Patient Instructions Prescription Expires Prescription Number Last Dispense Date Ordering Provider Order Date Order Qty Source ALPRAZolam 0.5 mg tablet See Instruct gege, # 10 EA, 0 total refill(s ), Hard Stop Complet ed 02/01/2024 4 2023 10.0 Ambulat ory Pharmac y amitriptyli ne 25 mg tablet 25 mg, Oral, Daily, # 90 EA, 3 total refill(s ), Hard Stop Oral (given by mouth) Ordered 12/26/2024 5 2024 90.0 Ambulat ory Pharmac y amitriptyli ne 25 mg tablet 25 mg, Oral, every day at bedtime, # 90 EA, 3 total refill(s ), Hard Stop Oral (given by mouth) Complet ed 02/29/2024 4 2024 90.0 Ambulat ory Pharmac y amitriptyli ne 25 mg tablet See Instruct gege, # 90 EA, 2 total refill(s ), Acute Complet ed 12/15/2022 3 2022 90.0 Ambulat ory Pharmac y cetirizine 10 mg tablet 10 mg, Oral, Daily, # 90 EA, 3 total refill(s ), Hard Stop Oral (given by mouth) Ordered 12/26/2024 5 2024 90.0 Ambulat ory Pharmac y cetirizine 10 mg tablet 10 mg, Oral, Daily, # 90 EA, 3 total refill(s ), Hard Stop Oral (given by mouth) Complet ed 02/29/2024 4 2024 90.0 Ambulat ory Pharmac y cetirizine 10 mg tablet See Instruct ions, # 90 EA, 2 total refill(s ), Acute Complet ed 03/01/2023 3 2023 90.0 Ambulat ory Pharmac y clobetasol 0.05% topical solution APPLY 2 TO 3 DROPS TWICE A DAY TO ITCHY AREAS ON SCALP/EA RS FOR 4 WEEKS FOR FLARES. DO NOT APPLY TO FACE. TAKE A 2 WEEK BREAK BEFORE RESTARTI NG., # 50 mL, 2 total refill(s ), Acute Complet ed 05/05/2023 3 2023 50.0 Ambulat ory Pharmac y diclofenac sodium EC 75 mg tablet 75 mg, Oral, BID, # 60 EA, 0 total refill(s ), Hard Stop Oral (given by mouth) Complet ed 10/23/2023 3 2023 60.0 Ambulat ory Pharmac y diclofenac sodium EC 75 mg tablet 75 mg, Oral, BID, # 60 EA, 0 total refill(s ), Hard Stop Oral (given by mouth) Ordered 06/20/2024 4 2023 60.0 Ambulat ory Pharmac y fluticasone 50 mcg/inh nasal spray [16g] See Instruct ions, # 48 g, 3 total refill(s ), Hard Stop Ordered 12/26/2024 5 2024 48.0 Ambulat ory Pharmac y fluticasone 50 mcg/inh nasal spray [16g] See dose instruct ions in comments , # 48 g, 2 total refill(s ), Acute Complet ed 12/15/2022 3 2022 48.0 Ambulat ory Pharmac y fluticasone 50 mcg/inh nasal spray [16g] See Instruct ions, # 48 g, 3 total refill(s ), Hard Stop Complet ed 02/29/2024 4 2024 48.0 Ambulat ory Pharmac y loratadine 10 mg oral tablet TAKE ONE TABLET BY MOUTH EVERY DAY, # 90 EA, 3 total refill(s ), Acute Complet ed 10/27/2022 2 2022 90.0 Ambulat ory Pharmac y montelukast 10 mg tablet 10 mg, Oral, Daily, # 90 EA, 3 total refill(s ), Hard Stop Oral (given by mouth) Ordered 12/26/2024 5 2024 90.0 Ambulat ory Pharmac y montelukast 10 mg tablet See Instruct ions, # 90 EA, 1 total refill(s ), Acute Complet ed 10/27/2022 3 2022 90.0 Ambulat ory Pharmac y montelukast 10 mg tablet 10 mg, Oral, Daily, # 90 EA, 3 total refill(s ), Hard Stop Oral (given by mouth) Complet ed 02/29/2024 4 2024 90.0 Ambulat ory Pharmac y montelukast 10 mg tablet 10 mg, Oral, Daily, # 90 EA, 3 total refill(s ), Hard Stop Oral (given by mouth) Discont inued 03/02/2023 3 2023 90.0 Ambulat ory Pharmac y pantoprazol e EC 40 mg tablet 40 mg, Oral, Daily, # 90 EA, 3 total refill(s ), Hard Stop Oral (given by mouth) Ordered 12/26/2024 5 2024 90.0 Ambulat ory Pharmac y pantoprazol e EC 40 mg tablet 40 mg, Oral, Daily, # 90 EA, 3 total refill(s ), Hard Stop Oral (given by mouth) Complet ed 02/29/2024 4 2024 90.0 Ambulat ory Pharmac y pantoprazol e EC 40 mg tablet See Instruct ions, # 90 EA, 2 total refill(s ), Acute Complet ed 12/15/2022 3 2022 90.0 Ambulat ory Pharmac y pimecrolimu s 1% cream [100g] See Instruct ions, Topical, BID, # 100 g, 3 total refill(s ), Hard Stop Topica l (on the skin) Ordered 08/16/2024 5 2024 100.0 Ambulat ory Pharmac y pimecrolimu s 1% cream [60g] See Instruct ions, # 60 g, 2 total refill(s ), Acute Complet ed 05/05/2023 3 2023 60.0 Ambulat ory Pharmac y pimecrolimu s 1% cream [60g] See Instruct ions, # 60 g, 3 total refill(s ), Hard Stop Discont inued 08/17/2023 4 2023 60.0 Ambulat ory Pharmac y Premarin 0.625 mg/g vaginal cream [30g] See Instruct ions, 0, # 90 g, 3 total refill(s ), Hard Stop Ordered 12/26/2024 5 2024 90.0 Ambulat ory Pharmac y Premarin 0.625 mg/g vaginal cream [30g] See dose instruct ions in comments , # 90 g, 3 total refill(s ), Acute Complet ed 12/15/2022 3 2022 90.0 Ambulat ory Pharmac y rosuvastati n 5 mg tablet 5 mg, Oral, Daily, # 90 EA, 3 total refill(s ), Hard Stop Oral (given by mouth) Ordered 12/26/2024 5 2024 90.0 Ambulat ory Pharmac y rosuvastati n 5 mg tablet 5 mg, Oral, Daily, # 90 EA, 2 total refill(s ), Hard Stop Oral (given by mouth) Discont inued 03/01/2024 4 2024 90.0 Ambulat ory Pharmac y SUMAtriptan 100 mg oral tablet TAKE ONE TABLET BY MOUTH EVERY DAY DIRECTED , # 27 EA, 2 total refill(s ), Acute Complet ed 10/27/2022 3 2022 27.0 Ambulat ory Pharmac y SUMAtriptan 100 mg tablet 100 mg, Oral, Daily, # 27 EA, 3 total refill(s ), Hard Stop Oral (given by mouth) Ordered 12/26/2024 5 2024 27.0 Ambulat ory Pharmac y SUMAtriptan 100 mg tablet 100 mg, Oral, Daily, # 27 EA, 3 total refill(s ), Hard Stop Oral (given by mouth) Complet ed 02/29/2024 4 2024 27.0 Ambulat ory Pharmac y Allergies, Adverse Reactions, Alerts Combined list of allergies from Department of Defense and Veterans Affairs facilities. It does not include entries that were removed or entered in error. Substance Category Reaction Severity Reaction type Status Date Reported Comments Source Hazelnuts Food allergy Edema of larynx Unknown Active 6 Ambulatory Pharmacy Immunizations Combined list of available immunizations from the Department of Defense and Veterans Affairs facilities. 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 Source influenza, injectable, quadrivalent 2021 TRANSCR IBED 158 Unknown complet ed influenza , injectabl e, quadrival ent 10/29/21 Given Ambulat ory Pharmac y COVID Vaccine Pfizer 2020 TRANSCR IBED 208 PFIZER complet ed COVID Vaccine Pfizer 11/18/20 Given Ambulat ory Pharmac y COVID Vaccine Pfizer 2020 TRANSCR IBED 208 PFIZER complet ed COVID Vaccine Pfizer 05/07/20 Given Ambulat ory Pharmac y COVID Vaccine Pfizer 2020 TRANSCR IBED 208 PFIZER complet ed COVID Vaccine Pfizer 04/16/20 Given Ambulat ory Pharmac y influenza, injectable, quadrivalent- pf 2018 150 Seqirus complet ed influenza , injectabl e, quadrival ent-pf 11/29/18 Given Ambulat ory Pharmac y typhoid Vi capsular polysaccharid e vac 2018 zzLjann t Arm [id number] 101 sanofi pasteur complet ed typhoid Vi capsular polysacch aride vac 09/12/18 Given Ambulat ory Pharmac y poliovirus vaccine, inactivated 2018 Kel chin Arm [id number] 10 sanofi pasteur complet ed polioviru s vaccine, inactivat ed 09/12/18 Given Ambulat ory Pharmac y rabies vaccine, IM 2018 Rosana t Arm [id number] 175 sanofi pasteur complet ed rabies vaccine, IM 05/20/18 Given Ambulat ory Pharmac y rabies vaccine, IM 2018 zzLef t Arm [id number] 175 sanofi pasteur complet ed rabies vaccine, IM 05/06/18 Given Ambulat ory Pharmac y typhoid Vi capsular polysaccharid e vac 2018 zzRig ht Arm [id number] 101 sanofi pasteur complet ed typhoid Vi capsular polysacch aride vac 04/18/18 Given Ambulat ory Pharmac y rabies vaccine, IM 2018 zzLef t Arm [id number] 175 sanofi pasteur complet ed rabies vaccine, IM 04/18/18 Given Ambulat ory Pharmac y Congolese Encephalitis IM 2018 zzRig ht Arm [id number] 134 Valneva complet ed Congolese Encephali tis IM 04/18/18 Given Ambulat ory Pharmac y tetanus-dipht h toxoids (Td) adult/adol 2018 zzLef t Arm [id number] 09 sanofi pasteur complet ed tetanus-d iphth toxoids (Td) adult/ado l 04/13/18 Given Ambulat ory Pharmac y hepatitis B adult vaccine 2018 zzLef t Arm [id number] 43 GlaxoSmithKli ne complet ed hepatitis B adult vaccine 04/13/18 Given Ambulat ory Pharmac y influenza, injectable, quadrivalent- pf 2017 150 sanofi pasteur complet ed influenza , injectabl e, quadrival ent-pf 10/29/17 Given Ambulat ory Pharmac y hepatitis A-hepatitis B vaccine 2015 zzLef t Arm [id number] 104 GlaxoSmithKli ne complet ed hepatitis A-hepatit is B vaccine 12/26/15 Given Ambulat ory Pharmac y Congolese Encephalitis IM 2015 zzRig ht Arm [id number] 134 Valneva complet ed Congolese Encephali tis IM 12/26/15 Given Ambulat ory Pharmac y influenza, injectable, quadrivalent 2015 zzLef t Arm [id number] 158 [employer] complet ed influenza , injectabl e, quadrival ent 11/21/15 Given Ambulat ory Pharmac y Congolese Encephalitis IM 2015 zzRig ht Arm [id number] 134 Valneva complet ed Congolese Encephali tis IM 11/21/15 Given Ambulat ory Pharmac y hepatitis A-hepatitis B vaccine 2015 zzLef t Arm [id number] 104 Jobfoxi ne complet ed hepatitis A-hepatit is B vaccine 11/21/15 Given Ambulat ory Pharmac y typhoid Vi capsular polysaccharid e vac [id number] sanofi pasteur complet ed typhoid Vi capsular polysacch aride vac 11/21/15 Given Ambulat ory Pharmac y influenza, injectable, quadrivalent- pf 2014 150 sanofi pasteur complet ed influenza , injectabl e, quadrival ent-pf 11/23/14 Given Ambulat ory Pharmac y zoster vaccine live [facility] [id number] [employer] complet ed zoster vaccine live 12/16/12 Given Ambulat ory Pharmac y pneumococcal 13-valent conjugate (PCV13) 2012 [id number] complet ed pneumococ jovon 13-valent conjugate (PCV13) 03/17/12 Given Ambulat ory Pharmac y influenza, seasonal, injectable 2011 141 Novartis [employer] [...] e 12/04/10 Given Ambulat ory Pharmac y influenza, seasonal, injectable 2009 141 Novartis Pharmaceutica ls complet ed influenza , seasonal, injectabl e 01/10/10 Given Ambulat ory Pharmac y Novel influenza-H1N 1-, injectable 2009 zzLef t Arm [id number] 127 Novartis Pharmaceutica ls complet ed Novel influenza -[id number], injectabl e 03/14/09 Given Ambulat ory Pharmac y influenza virus vaccine,split 2008 zzLef t Arm [id number] 15 sanofi pasteur complet ed influenza virus vaccine,s plit 01/10/09 Given Ambulat ory Pharmac y tetanus, diphtheria, [id number] sanofi pasteur complet ed tetanus, diphtheri a, acellular pertussis 02/03/08 Given Ambulat ory Pharmac y influenza virus vaccine,split 2007 zzLef t Arm [id number] 15 sanofi pasteur complet ed influenza virus vaccine,s plit 02/03/08 Given Ambulat ory Pharmac y influenza virus vaccine,split 2005 zzLef t Arm [id number] 15 GlaxoSmithKli ne complet ed influenza virus vaccine,s plit 02/05/06 Given Ambulat ory Pharmac y tetanus-dipht h toxoids (Td) adult/adol 2004 zzRig ht Arm [id number] 09 sanofi pasteur complet ed tetanus-d iphth toxoids (Td) adult/ado l 01/13/05 Given Ambulat ory Pharmac y influenza virus vaccine,split 2004 zzLef t Arm [id number] 15 sanofi pasteur complet ed influenza virus vaccine,s plit 01/13/05 Given Ambulat ory Pharmac y Procedures Combined list of: 1) Procedures from Department of Veterans Affairs facilities [facility], not all [place] non-surgical procedures are included; 2) All procedures from the Department of Defense facilities. Procedure Procedure Type Code Date Perfomer Comments Sourc e No data available for this section Ambulatory P harmacy Assessment and Plan Combined list of future care activities from Department of Defense and Veterans Affairs facilities (e.g., assessment and plan notes, appointments, orders, and referrals). Additional future care activities may be listed in the Plan of Care section. Result Assessment and Plan Date Source Assessment and Plan No data available for this section 05/30/2024 Ambulatory Pharmacy Functional Status Combined list of recent functional and cognitive assessments recorded at Department of Defense and [facility] Affairs ([place] Functional [place] Measurement (FIM) Scale: 1 = Total Assistance (Subject = 0% +), 2 = Maximal Assistance (Subject = 25% +), 3 = Moderate Assistance (Subject = 50% +), 4 = Minimal Assistance (Subject = 75% +), 5 = Supervision, 6 = Modified Charles (Device), 7 = Complete Charles (Timely, Safely). Assessment Date/Time Source Assessment Type Assessment Skill Assessment Score Assessment Details No data available for this section
== END 2024-05-30 09:38 | disposition home or self-care (01) ==
PROVIDERS: PCP Family Medicine; Visit Provider Orthopaedic Surgery
DX: M67.873 Other specified disorders of tendon, right ankle and foot (principal)
CPT/HCPCS: 73720; A9579

== ENCOUNTER 2024-08-12 08:41 | Emergency (ER) | payer MEDICARE, OTHER, SELFPAY ==
--- NOTE | ~2024-08-12 | US_ITS ---
EXAMINATION: US venous doppler LE RT DATE: 08/12/2024 11:43 INDICATION: Right lower limb pain TECHNIQUE: Grayscale ultrasound images without and with compression and Doppler ultrasound images of the right lower extremity veins were obtained. COMPARISON: None. FINDINGS: The visualized portions of right common femoral vein, profunda (deep) femoral vein, femoral vein, pop liteal vein, peroneal trunk, posterior tibial veins, peroneal veins, gastrocnemius vein and greater s aphenous vein outflow are patent. IMPRESSION: 1. No deep venous thrombosis in the right lower limb. Reviewed, dictated and finalized at location A.
--- NOTE | ~2024-08-12 | XR_ITS ---
EXAMINATION: XR chest 1V portable DATE: 08/12/2024 10:47 INDICATION: Chest pain TECHNIQUE: frontal view of the chest was obtained. COMPARISON: Chest radiograph dated 10/16/2022 FINDINGS: The lungs are clear with no focal airspace opacities, pulmonary edema, pleural effusion or pneumothor ax. The cardiomediastinal silhouette is normal. Visualized bones and soft tissues are unremarkable. IMPRESSION: 1. No acute cardiopulmonary disease. Reviewed, dictated and finalized at location A.
--- NOTE | ~2024-08-12 | CT_ITS ---
EXAMINATION: CT brain wo con DATE: 08/12/2024 10:55 INDICATION: Lightheadedness and confusion TECHNIQUE: Computed tomography (CT) of the head was performed without intravenous contrast. Sagittal and coronal reconstructions were performed. The mA was adjusted according to patient size. Iterative reconstruction technique was employed. The dose-length product was 605.33 mGy-cm. COMPARISON: head CT dated 04/07/2023 FINDINGS: No acute intracranial hemorrhage, acute infarction or abnormal extra axial fluid collection. There is mild scattered white matter hypoattenuation consistent with chronic small vessel ischemic disease. S ymmetric prominence of the sulci consistent with mild age-appropriate diffuse cerebral volume loss. V entricles are normal and symmetric. No mass/mass effect. The orbits, paranasal sinuses and mastoid ai r cells are normal. IMPRESSION: 1. No acute intracranial process. 2. Age-related changes including mild diffuse volume loss and mild scattered white matter hypoattenua tion consistent with chronic small vessel ischemic disease. Reviewed, dictated and finalized at location A. IMPRESSION: 1. No acute intracranial process. 2. Age-related changes including mild diffuse volume loss and mild scattered wh ite matter hypoattenuation consistent with chronic small vessel ischemic diseas e.
[2024-08-12 08:45] VITALS: BP 180/72; PULSE 64; RESP 14; TEMP 36.7; O2SAT 98
[2024-08-12 09:36] VITALS: BP 136/64; PULSE 60; RESP 15; O2SAT 98
--- NOTE | 2024-08-12 10:39 | ECG_ITS ---
Test Date: 2024-08-12 11:14:30 Measurements Intervals [place] Rate: 55 P: 50 UT: 177 QRS: 9 QRSD: 81 T: 52 QT: 432 QTc: 415 Interpretive Statements SINUS BRADYCARDIA MINIMAL Q WAVES- HIGH LATERAL LEADS BORDERLINE ECG BASELINE ARTIFACT- I, II, AVR, AVL Compared to ECG 03/23/2024 15:23:46 HEART RATE HAS DECREASED Electronically Signed On 08-12-2024 13:39:40 CDT by Jack Elizabeth D.O.
--- NOTE | 2024-08-12 10:48 | PC.NURSE ---
Pt to radiology at this time.
--- NOTE | 2024-08-12 11:10 | ED.GENADULT ---
HPI - General Adult General Chief complaint: Extremity Injury, Lower Stated complaint: right calf pain Time Seen by Provider: 08/12/24 09:56 History of Present Illness HPI narrative: This is a 68-year-old female to the ED with multiple complaints. Her 1st complaint is right calf pain. Patient has been having residual pain in her ankle from a old calcium nail injury. She received a steroid injection from her orthopedic surgeon in the last week. Today she developed a sharp pinching pain in her right calf that then resolved into a dull achiness. Patient is very active and walks 3 times a day and goes to the gym multiple times a week. After she had the pain she was walking to her kitchen and then she started to feel lightheaded, dizzy, had trouble breathing any heaviness in her chest. She went and laid down and this resolved and around 15 minutes. She has had similar events in past and when she told 1 of her friends they school dinner for not going to the ER in telling her that she might have had a TIA. She had no neurologic deficits slurred speech weakness visual changes or loss of coordination. Patient is concerned she may have a DVT or be having a stroke or heart attack Related Data Home Medications ?Medication ?Instructions ?Recorded ?Confirmed ?Last Taken ?Type pimecrolimus 1 % topical cream 1 applic topical BID 12/27/23 08/08/24 03/30/24 History calcium 315 mg (as 1 tablet PO DAILY 03/20/24 08/08/24 03/25/24 History citrate)-vitamin D3 6.25 mcg (250 unit) tablet (Citracal + Vitamin D Maximum) conjugated estrogens 0.625 mg/gram 0.625 mg topical .twice weekly 03/20/24 08/08/24 Unknown History vaginal cream (Premarin) qwqafhft-gfrffag-lylm-lutein tablet 1 tablet PO DAILY 03/20/24 08/08/24 03/25/24 History psyllium husk 0.4 gram capsule 0.4 g PO DAILY 03/20/24 08/08/24 03/25/24 History (Daily Fiber) sumatriptan succinate 100 mg 100 mg PO PRN Migraine 03/20/24 08/08/24 Unknown History tablet (Imitrex) vitamin B complex (Super Quints 1 tablet PO DAILY 01/27/25 06/17/25 02/01/25 History B-50 tablet) Allergies Allergy/AdvReac Type Severity Reaction Status Date / Time HAZELNUTS Allergy Intermediate ITCHY Uncoded 08/12/24 08:50 THROAT PMFSH Past Medical History Medical History Peroneal tendonitis of right lower extremity Other bursal cyst, right ankle and foot Aortic regurgitation TIA (transient ischemic attack) HLD (hyperlipidemia) Arthritis of right subtalar joint Allergic rhinitis Plantar fasciitis Weight gain Alcohol use 1-2 drinks/week Osteopenia Mitral valve prolapse GERD (gastroesophageal reflux disease) Migraine Surgical History Surgical History History of foot surgery Willett's neuroma removal, 2019, Isaac History of hip replacement Family History Family History Mother Hypertension Family history of chronic obstructive pulmonary disease Family history of coronary artery disease Father Hypertension Family history of coronary artery disease Social History Social History Social History: Years smoked: 4 Smoking status: Former smoker Second hand tobacco smoke exposure: No Smoking end date: 02/22/77 Alcohol intake: current Drinks per week: 7 Alcohol use details: 2-3 per week Substance use: never Substance use type: does not use Do You Feel Safe in your Home?: Yes Lack of Transportation: No Lack of Food: Never True Current Housing: I Have Housing Concerned About Future Housing: No Difficulty Paying Gas/Electric Bills: No Difficulty Paying for Meds: No Currently Unemployed: YES Education: Don't Know Difficulty w/ Childcare or Family Care: No Living arrangements: with family Additional living arrangements comments: Occupation/Education: retired Gender identity (if verbalized by the patient): Female Sexual Orientation (if Verbalized by the Patient): Straight or Heterosexual Spiritual care concerns: No Exam Narrative: APPEARANCE: No apparent distress. Head: atraumatic. EYES: EOMI, NOSE: Atraumatic NECK: Trachea midline RESPIRATORY: No increased rate of breathing clear to auscultation CARDIOVASCULAR: RRR, ABDOMINAL: Non-distended MUSCULOSKELETAl: Focal exam of the right calf revealed no obvious swelling deformity or skin changes. All compartments are soft. Pulses are strong foot with good cap refill. NEURO: Alert. Cranial nerves 2-12 grossly intact. Sensation light touch, motor function cerebellar function intact for 4 extremities. Gait exam was normal. SKIN:: Warm, dry. Normal color PSYCHIATRIC: Normal affect Course Vital Signs Vital signs: Vital Signs Temperature 98.0 F 08/12/24 08:45 Pulse Rate 64 08/12/24 08:45 Respiratory Rate 14 08/12/24 08:45 Blood Pressure 180/72 H 08/12/24 08:45 Pulse Oximetry 98 08/12/24 08:45 Oxygen Delivery Room Air 08/12/24 08:45 Temperature 98.0 F 08/12/24 08:45 Pulse Rate 54 L 08/12/24 13:10 Respiratory Rate 18 08/12/24 13:10 Blood Pressure 144/64 H 08/12/24 13:10 Pulse Oximetry 97 08/12/24 13:10 Oxygen Delivery Room Air 08/12/24 08:45 Medical Decision Making MDM Narrative Medical decision making narrative: -Course: 68-year-old female presenting with calf pain and a brief episode of lightheadedness chest pain and shortness of breath. Venous ultrasound negative for DVT. Chest x-ray clear. Troponins undetectable x2. EKG showed sinus bradycardia with no evidence of ischemia. D-dimer was at an age adjusted limits. Patient's monitor ED for approximately 6 hours with no recurrence of her symptoms. Unclear etiology of her episode although I do not see any concerning findings on her workup or in her history and physical. Possibly anxiety or vasovagal. I discussed the unclear diagnosis with the patient and made sure that if she develops any new or worsening symptoms she should return to the ED for re-evaluation. Patient is comfortable with this plan. Calf pain is likely a compensation injury from her ongoing ankle pain. -DDX includes but is not limited to: DVT, muscle strain, PE ACS pneumonia pneumothorax vasovagal syncope cardiogenic syncope Vital Signs Vital Signs: Vital Signs Temperature 98.0 F 08/12/24 08:45 Pulse Rate 64 08/12/24 08:45 Respiratory Rate 14 08/12/24 08:45 Blood Pressure 180/72 H 08/12/24 08:45 Pulse Oximetry 98 08/12/24 08:45 Oxygen Delivery Room Air 08/12/24 08:45 Temperature 98.0 F 08/12/24 08:45 Pulse Rate 54 L 08/12/24 13:10 Respiratory Rate 18 08/12/24 13:10 Blood Pressure 144/64 H 08/12/24 13:10 Pulse Oximetry 97 08/12/24 13:10 Oxygen Delivery Room Air 08/12/24 08:45 Lab Data 08/12/24 11:11 08/12/24 11:11 Labs: Lab Results 08/12/24 08/12/24 08/12/24 Range/Units 11:11 11:11 11:24 WBC 5.6 (4.5-10.0) K/mm3 RBC 4.29 (4.2-5.4) M/mm3 Hgb 13.7 (12.0-15.0) g/dL Hct 40.9 (37.0-47.0) % MCV 95.3 (80-100) fl MCH 31.9 (26-34) pg MCHC 33.5 (32-36) g/dl RDW 13.2 (11.5-14.5) % Plt Count 248 (150-375) k/mm3 MPV 9.6 (7.4-10.4) fl Immature Gran % (Auto) 0.2 (0-0.5) % Neut % (Auto) 62.8 (45.5-73.1) % Lymph % (Auto) 26.1 (18.3-44.2) % Jerome % (Auto) 7.3 (2.6-8.5) % Eos % (Auto) 2.7 (0-4.4) % Baso % (Auto) 0.9 (0.2-1.2) % Lymph # (Auto) 1.46 (0.9-3.2) K/mm3 Jerome # (Auto) 0.4 (0.1-0.6) K/mm3 Eos # (Auto) 0.2 (0-0.3) K/mm3 Baso # (Auto) 0.1 (0.0-0.1) K/mm3 Abs Immat Gran (auto) 0.01 (0.00-0.031) K/mm3 Absolute Neuts (auto) 3.5 (1.3-6.7) K/mm3 Absolute Nucleated RBC 0.000 (0.0-0.012) K/mm3 Nucleated RBC % 0.0 (0.0-0.2) % PT 12.5 (11.1-14.7) Seconds INR 0.9 APTT 20.0 L (22.3-36.8) Seconds D-Dimer 0.65 H Cancelled (<0.48) ug/mL Sodium 135 L (137-145) mmol/L Potassium 4.2 (3.4-5.0) mmol/L Chloride 97 L (98-107) mmol/L Carbon Dioxide 28 (22-30) mmol/L Anion Gap 10 (4-12) mmol/L BUN 15 (7-17) mg/dL Creatinine 0.71 (0.7-1.0) mg/dL Estim Creat Clear Calc 65 ml/min Estimated GFR > 60 (59 - ) Glucose 87 (65-110) mg/dL POC Capillary Glucose 99 (65-105) mg/dl Calcium 10.0 (8.4-10.2) mg/dL Magnesium 2.1 (1.6-2.3) mg/dL Total Bilirubin 0.7 (0.2-1.3) mg/dL AST 43 H (14-36) U/L ALT 30 (6-35) U/L Alkaline Phosphatase 100 (38-126) U/L Troponin I < 0.012 (0.000-0.034) ng/mL NT-Pro-B Natriuret Pep 100 (19.9-100) pg/mL Total Protein 8.2 (6.3-8.2) g/dL Albumin 5.2 H (3.5-5.1) g/dL Lipase 100 (23-300) U/L Urine Color Yellow (Yellow) Urine Appearance Clear (Clear) Urine pH 8.0 (5.0-9.0) Ur Specific [place] 1.010 (1.001-1.035) Urine Protein Negative (Negative) mg/dL Urine Glucose (UA) Negative (Negative) mg/dL Urine Ketones Negative (Negative) mg/dL Ur Blood (Man) Negative (Negative) Urine Nitrate Negative (Negative) Urine Bilirubin Negative (Negative) Urine Urobilinogen 0.2 (<2.0) mg/dL Leukocyte Esterase Rfl Negative (Negative) NIR/UL 06/21/25 Range/Units 14:34 WBC (4.5-10.0) K/mm3 RBC (4.2-5.4) M/mm3 Hgb (12.0-15.0) g/dL Hct (37.0-47.0) % MCV (80-100) fl MCH (26-34) pg MCHC (32-36) g/dl RDW (11.5-14.5) % Plt Count (150-375) k/mm3 MPV (7.4-10.4) fl Immature Gran % (Auto) (0-0.5) % Neut % (Auto) (45.5-73.1) % Lymph % (Auto) (18.3-44.2) % Jerome % (Auto) (2.6-8.5) % Eos % (Auto) (0-4.4) % Baso % (Auto) (0.2-1.2) % Lymph # (Auto) (0.9-3.2) K/mm3 Jerome # (Auto) (0.1-0.6) K/mm3 Eos # (Auto) (0-0.3) K/mm3 Baso # (Auto) (0.0-0.1) K/mm3 Abs Immat Gran (auto) (0.00-0.031) K/mm3 Absolute Neuts (auto) (1.3-6.7) K/mm3 Absolute Nucleated RBC (0.0-0.012) K/mm3 Nucleated RBC % (0.0-0.2) % PT (11.1-14.7) Seconds INR APTT (22.3-36.8) Seconds D-Dimer (<0.48) ug/mL Sodium (137-145) mmol/L Potassium (3.4-5.0) mmol/L Chloride (98-107) mmol/L Carbon Dioxide (22-30) mmol/L Anion Gap (4-12) mmol/L BUN (7-17) mg/dL Creatinine (0.7-1.0) mg/dL Estim Creat Clear Calc ml/min Estimated GFR (59 - ) Glucose (65-110) mg/dL POC Capillary Glucose (65-105) mg/dl Calcium (8.4-10.2) mg/dL Magnesium (1.6-2.3) mg/dL Total Bilirubin (0.2-1.3) mg/dL AST (14-36) U/L ALT (6-35) U/L Alkaline Phosphatase (38-126) U/L Troponin I < 0.012 (0.000-0.034) ng/mL NT-Pro-B Natriuret Pep (19.9-100) pg/mL Total Protein (6.3-8.2) g/dL Albumin (3.5-5.1) g/dL Lipase (23-300) U/L Urine Color (Yellow) Urine Appearance (Clear) Urine pH (5.0-9.0) Ur Specific [place] (1.001-1.035) Urine Protein (Negative) mg/dL Urine Glucose (UA) (Negative) mg/dL Urine Ketones (Negative) mg/dL Ur Blood (Man) (Negative) Urine Nitrate (Negative) Urine Bilirubin (Negative) Urine Urobilinogen (<2.0) mg/dL Leukocyte Esterase Rfl (Negative) NIR/UL Discharge Plan Discharge Clinical Impression: Calf pain, Light headedness Patient Disposition: Home Condition: Stable Instructions: Antibiotic Form, Leg Pain (ED) Additional Instructions: You were seen in the emergency department for calf pain and an episode dizziness. Your workup here was reassuring. Please follow-up with your primary care physician for further management. If you develop any new or worsening symptoms please return to the ED for re-evaluation. Patient Language: Irish Prescriptions: No Action pimecrolimus 1 % cream 1 applic topical BID amitriptyline 25 mg tablet 25 mg PO QHS Qty: 90 3RF fluticasone propionate 50 mcg/actuation spray,suspension 2 spray INTRANASAL DAILY Qty: 48 3RF Zyrtec 10 mg capsule 10 mg PO DAILY Qty: 90 3RF montelukast [Singulair] 10 mg tablet 10 mg PO DAILY Qty: 90 3RF pantoprazole 40 mg tablet,delayed release (DR/EC) 40 mg PO DAILY Qty: 90 3RF rosuvastatin [Crestor] 5 mg tablet 5 mg PO DAILY Qty: 90 3RF aspirin [Adult Low Dose Aspirin] 81 mg tablet,delayed release (DR/EC) 81 mg PO DAILY Qty: 1 0RF Patient Comments: HOLD FOR [address] Abdi rxqtqjot-szuhwmi-aklp-lutein Tablet 1 tablet PO DAILY calcium citrate-vitamin D3 [Citracal + D Maximum] 315 mg-6.25 mcg (250 unit) tablet 1 tablet PO DAILY vitamin B complex [Super Quints B-50] Tablet 1 tablet PO DAILY psyllium husk [Daily Fiber] 0.4 gram capsule 0.4 g PO DAILY sumatriptan succinate [Imitrex] 100 mg tablet 100 mg PO PRN Premarin 0.625 mg/gram cream 0.625 mg topical .twice weekly epinephrine 0.3 mg/0.3 mL syringe 0.3 mg subcut Q5-15M PRN (Reason: anaphylaxis) Qty: 2 0RF Rx Instructions: do not exceed 2 doses per episode acetaminophen 500 mg tablet 1,000 mg PO TID PRN (Reason: eddie) 7 Days Qty: 42 0RF Follow-up/Referrals: Gorge Siddiqui MD [Primary Care Provider] - 1 Week
[2024-08-12 11:25] LABS: Add Urine Microscopic? NO; Appearance Urine Clear (Clear); Basophils Absolute Auto 0.1 K/mm3 (0.0-0.1); Basophils Percent Auto 0.9 % (0.2-1.2); Bilirubin Urine Negative (Negative); Blood Urine Negative (Negative); Color Urine Yellow (Yellow); Eosinophils Absolute Auto 0.2 K/mm3 (0-0.3); Eosinophils Percent Auto 2.7 % (0-4.4); Glucose Urine UA Negative (Negative); Hematocrit 40.9 % (37.0-47.0); Hemoglobin 13.7 g/dL (12.0-15.0); Immature Granulocyte Absolute 0.01 K/mm3 (0.00-0.031); Immature Granulocyte Percent A 0.2 % (0-0.5); Ketones Urine Negative (Negative); Leukocyte Esterase Ur Negative LEU/UL (Negative); Lymphocytes Absolute Auto 1.46 K/mm3 (0.9-3.2); Lymphocytes Percent Auto 26.1 % (18.3-44.2); Mean Corpuscular HGB Conc 33.5 g/dl (32-36); Mean Corpuscular Hemoglobin 31.9 pg (26-34); Mean Corpuscular Volume 95.3 fl (80-100); Mean Platelet Volume 9.6 fl (7.4-10.4); Monocytes Absolute Auto 0.4 K/mm3 (0.1-0.6); Monocytes Percent Auto 7.3 % (2.6-8.5); Neutrophils Absolute Auto 3.5 K/mm3 (1.3-6.7); Neutrophils Percent Auto 62.8 % (45.5-73.1); Nitrate Urine Negative (Negative); Platelet Count Result 248 k/mm3 (150-375); Protein Urine Negative (Negative); Red Blood Count 4.29 M/mm3 (4.2-5.4); Red Cell Distribution Width 13.2 % (11.5-14.5); Urobilinogen Urine 0.2 mg/dL (<2.0); White Blood Count 5.6 K/mm3 (4.5-10.0)
[2024-08-12 11:26] LABS: Glucose Point of Care 99 mg/dl (65-105)
[2024-08-12 11:45] LABS: Alanine Aminotransferase 30 U/L (6-35); Albumin Level 5.2 g/dL (3.5-5.1); Alkaline Phosphatase 100 U/L (38-126); Anion Gap 10 mmol/L (4-12); Aspartate Amino Transferase 43 U/L (14-36); Bilirubin,Total 0.7 mg/dL (0.2-1.3); Blood Urea Nitrogen 15 mg/dL (7-17); Carbon Dioxide 28 mmol/L (22-30); Chloride 97 mmol/L (98-107); Estimated CRCL calculation 65 ml/min; Estimated Glomerular Filt Rate > 60; Glucose 87 mg/dL (65-110); Lipase 100 U/L (23-300); Magnesium 2.1 mg/dL (1.6-2.3); Potassium 4.2 mmol/L (3.4-5.0); Sodium 135 mmol/L (137-145); Total Protein 8.2 g/dL (6.3-8.2)
[2024-08-12 11:52] LABS: INR 0.9; Prothrombin Time 12.5 Seconds (11.1-14.7)
[2024-08-12 11:56] LABS: D Dimer 0.65 ug/mL (<0.48)
[2024-08-12 12:04] LABS: NT Pro B Type Natriuretic Pept 100 pg/mL (19.9-100); Troponin I < 0.012 ng/mL (0.000-0.034)
[2024-08-12 13:10] VITALS: BP 144/64; PULSE 54; RESP 18; O2SAT 97
--- NOTE | 2024-08-12 13:32 | ECG_ITS ---
Test Date: 2024-08-12 14:36:36 Measurements Intervals [place] Rate: 56 P: 55 MS: 183 QRS: 11 QRSD: 82 T: 62 QT: 446 QTc: 431 Interpretive Statements SINUS BRADYCARDIA MINIMAL Q WAVES- HIGH LATERAL LEADS BASELINE ARTIFACT- I, II, AVR, AVL, AVF, V2 BORDERLINE ECG Compared to ECG 08/12/2024 11:14:30 NO SIGNIFICANT CHANGE Electronically Signed On 08-12-2024 14:39:29 CDT by Jack Elizabeth D.O.
[2024-08-12 15:07] LABS: Troponin I < 0.012 ng/mL (0.000-0.034)
== END 2024-08-12 15:56 | disposition home or self-care (01) ==
PROVIDERS: Emergency Provider Emergency Medicine; PCP Family Medicine
DX: M79.661 Pain in right lower leg (principal); R42 Dizziness and giddiness; R06.9 Unspecified abnormalities of breathing; I35.1 Nonrheumatic aortic (valve) insufficiency; I34.1 Nonrheumatic mitral (valve) prolapse; E78.5 Hyperlipidemia, unspecified; M19.071 Primary osteoarthritis, right ankle and foot; M85.80 Other specified disorders of bone density and structure, unspecified site; K21.9 Gastro-esophageal reflux disease without esophagitis; Z96.649 Presence of unspecified artificial hip joint; Z86.73 Personal history of transient ischemic attack (TIA), and cerebral infarction without residual deficits; Z87.891 Personal history of nicotine dependence; R00.1 Bradycardia, unspecified
CPT/HCPCS: 36415; 70450; 71045; 80053; 81003; 82948; 83690; 83735; 83880; 84484; 85025; 85380; 85610; 85730; 93005; 93971; 99284

== ENCOUNTER 2024-08-17 12:23 | Outpatient (CLI) | payer MEDICARE, OTHER, SELFPAY ==
--- NOTE | ~2024-08-17 | CT_ITS ---
CTA chest PE protocol Ordering provider: Gorge Siddiqui MD History: 68 years Female with . R07.89 - chest tightness, SOB, abnormal labs . Comparison: None. Technique: CT angiogram chest was performed following timed intravenous injection of contrast. Thin s lice axial images and reformatted coronal images were obtained. Three dimensional reformatted images of the chest were also obtained using a [employer] workstation. . Automated exposure control and iterati ve reconstruction technique were employed. The dose-length product was 188.49 mGy-cm. 100 mL Omnipaqu e 350 was given IV. Findings: PULMONARY ARTERIES: No pulmonary embolus. VISUALIZED THORACIC INLET: Normal. MEDIASTINUM: Aorta/coronary arteries: Mild atheromatous disease. Heart/other: The heart is not enlarged. Lymph nodes: No mediastinal or hilar adenopathy. LUNGS: No pulmonary nodules or masses. No infiltrates or effusions. No pneumothorax. VISUALIZED UPPER ABDOMEN: the visualized upper abdomen is normal. MUSCULOSKELETAL: Soft tissues: The superficial soft tissues are normal. Bones: Age appropriate degenerative changes of the spine. IMPRESSION: 1. No pulmonary embolism. 2. No acute cardiopulmonary pathology. Reviewed, dictated and finalized at location A.
== END 2024-08-17 12:24 | disposition home or self-care (01) ==
PROVIDERS: PCP Family Medicine; Visit Provider Family Medicine
DX: R07.89 Other chest pain (principal)
CPT/HCPCS: 71275; Q9967

== ENCOUNTER 2024-10-16 12:55 | Outpatient (CLI) | payer MEDICARE, OTHER, SELFPAY ==
--- OUTSIDE RECORDS SUMMARY | 2024-10-16 12:59 | XMS_ITS | Continuity of Care Document ---
Author Name [facility] Organization [facility] Care Team Providers Care Yeast Pumper Name Role Phone [facility] Unavailable Unavailable Problems Combined list of problems from Department of Defense and Veterans Affairs facilities. It does not include entries that were removed or entered in error. Problem Status Onset Date Problem Type Date of Resolution Comments Source DYSPAREUNIA Active Condition DoD visit for: single system exam gynecological Inactive Condition DoD visit for: laboratory Inactive Condition DoD FOLLICULITIS Inactive Condition DoD X-Ray Active Condition DoD ARTHRITIS Active Condition DoD ESOPHAGITIS CHRONIC REFLUX Active Condition DoD ALLERGIC RHINITIS Active Condition DoD joint pain, localized in the hip Active Condition DoD Abdomen Tenderness Active Condition DoD ATYPICAL CHEST PAIN Inactive Condition D oD tingling (paresthesia) Active Condition DoD CERVICAL RADICULOPATHY Active Condition DoD CERVICAL RADICULOPATHY C6 Active Condition DoD INTERVERTEBRAL DISC DEGENERATION Active Condition DoD visit for: screening exam cardiovascular disorders Active Condition DoD Combined Systolic And Diastolic Elevation Active Condition DoD chest pain or discomfort Active Condition DoD sudden redness of the skin (flushing) Active Condition DoD Blood Pressure Isolated Elevated Active Condition DoD joint pain, localized in the elbow Active Condition DoD NORMAL ROUTINE HISTORY AND PHYSICAL ADULT (18-65) Active Condition DoD LATERAL EPICONDYLITIS (TENNIS ELBOW) RIGHT Active Condition DoD joint pain, localized in the shoulder Active Condition DoD TENDONITIS Active Condition DoD ANOMALIES OF NAILS Active Condition DoD Cervical Pap Smear Unsatisfactory Active Condition DoD Administrative Evaluation Services Active Condition DoD Outpatient Physician Consultation Active Condition DoD OSTEOPENIA Active Condition discussed calcium, Vit D, wt bearing exercise; discussed fosamax 35mg/wk, discussed decreasing caffeine intake; pt desires to try lifestyle changes 1st and not do meds yet. Repeat bone density 1yr DoD POSTMENOPAUSAL BLEEDING Active Condition con't to monitor; if spotting persists, to notify clinic and will complete MRI; discussed minimal concern with endometrial stripe 1.2mm DoD visit for: issue repeat prescription Inactive Condition DoD COSTOCHONDRITIS (TIETZE'S SYNDROME) Active Condition DoD URINARY TRACT INFECTION Inactive Condition DoD Cervical Pap Smear Active Condition DoD visit for: issue repeat prescription for medication Active Condition JOSE EDUARDO SEYMOUR Age:51 [phone] OUTPAT PRE-ACTIVE ORDERS 1 RX CETIRIZINE HCL--PO 10MG TAB~TD RF2 #90 DS30 on 23 Dec 2006@1100 {RDH} ~HCP Sig.Needed~PRE- ACTIVE . . . . . . . . sGUSTIM 1NOV@1100 2 RX MONTELUKAST SOD (SINGULAIR)--PO 10MG TAB ~TH RF2 #90 DS30 on 23 Dec 2006@1101 {RDH} ~HCP Sig.Needed~PRE- ACTIVE . . . . . . . . sGUSTIM 1NOV@1101 DoD MIGRAINE HEADACHE Active Condition DoD RHINITIS Active Condition DoD DERMATOPHYTOSIS NAILS ONYCHOMYCOSIS Inactive Condition DoD NORMAL ROUTINE HISTORY AND PHYSICAL Inactive Condition DoD Vaccines Prophylactic Need Against Influenza Inactive Condition DoD Vaccines Prophylactic Need Against Td Inactive Condition DoD Physical Examination Inactive Condition f/u prn. DoD visit for: screening exam for malignant neoplasm cervix Active Condition DoD ROUTINE GYNECOLOGICAL EXAM WITH CERVICAL PAP SMEAR Inactive Condition likely unsat pap; would recommend cytotech prior to repeat and can do with EMB if needed DoD BEREAVEMENT WITHOUT COMPLICATIONS Active Condition Patient experiencing appropriate amount of [...] juice.Ma y cause drowsine ss/dizzi ness. 02/01/2024 [id number] 4 2023 10 [facility] Daljit GOINS ([facility]) ALPRAZOLAM (ALPRAZOLAM ), 0.5MG, TABLET, ORAL, ACTAVIS ELIZABE, 500 ea. BOTTLE Cancele d [id number] : 2023 0 Pharmac y Data Transac tion Service Facilit y ALPRAZOLAM (ALPRAZOLAM ), 0.5MG, TABLET, ORAL, ACTAVIS ELIZABE, 500 ea. BOTTLE Active [id number] 4 2023 10 Pharmac y Data Transac tion Service Facilit y ALPRAZolam 0.5 mg tablet See Instruct ions, # 10 EA, 0 total refill(s ), Hard Stop Complet ed 02/01/2024 4 2023 10.0 Ambulat ory Pharmac y amitriptyli ne 25 mg tablet = 1 tab(s), Oral, Daily, # 90 EA, 3 total [...] amitriptyli ne 25 mg tablet See Instruct ions, # 90 EA, 2 total refill(s ), Acute Complet ed 12/15/2022 3 2022 90.0 Ambulat ory Pharmac y cetirizine 10 mg tablet = 1 tab(s), Oral, Daily, # 90 EA, 3 total [...] Stop Oral (given by mouth) Complet ed 06/20/2024 4 2024 60.0 Ambulat ory Pharmac y EPINEPHrine (eqv-epi-pe n) 0.3mg autoinjecto r kit [2EA] 0.3 mg, SubCutan eous, # 2 EA, 0 total refill(s ), Soft Stop SubCut aneous (under the skin) Ordered 5 2024 2.0 Ambulat ory Pharmac y fluticasone 50 mcg/inh [...] ), Hard Stop Complet ed 02/29/2024 4 01/07/ 2025 48.0 Ambulat ory Pharmac y loratadine 10 mg oral tablet TAKE ONE TABLET BY MOUTH EVERY DAY, # 90 EA, 3 total refill(s ), Acute Complet ed 10/27/2022 2 2022 90.0 Ambulat ory Pharmac y montelukast 10 mg tablet = 1 tab(s), Oral, Daily, # 90 EA, 3 total [...] 3 2023 90.0 Ambulat ory Pharmac y ONDANSETRON ODT (ONDANSETRO N), 4 MG, TAB RAPDIS, ORAL, AUROBINDO PHARM, 30 ea. BLIST PACK Active [id number] 4 2023 20 Pharmac y Data Transac tion Service Facilit y pantoprazol e EC 40 mg tablet = 1 tab(s), Oral, Daily, # 90 EA, 3 total [...] 3 2022 90.0 Ambulat ory Pharmac y Pimecrolimu s (Elidel Eq.) Cream 1% Topical For external use. 08/16/2024 [id number] 4 2023 100 [facility] Daljit GOINS ([facility]) pimecrolimu s 1% cream [100g] See Instruct ions, Topical, BID, # 100 g, 3 total refill(s ), Hard Stop Topica l (on the skin) Complet ed 08/16/2024 5 2024 100.0 Ambulat ory Pharmac y pimecrolimu s 1% cream [100g] See Instruct ions, # 100 g, 3 total refill(s ), Soft Stop Ordered 5 2024 100.0 Ambulat ory Pharmac y [...] Pharmac y rosuvastati n 5 mg tablet = 1 tab(s), Oral, Daily, # 90 EA, 3 total [...] ory Pharmac y SUMAtriptan 100 mg tablet = 1 tab(s), Oral, Daily, # 27 EA, 3 total [...] allergy (disorder) Edema of larynx [facility] 7 [facility]) Immunizations Combined list of available immunizations from the Department of Defense and Veterans Affairs facilities. Immunization Series Date Given Administered By Site Reaction Lot Number CVX Code Drug Sponsorship Coordinator Status Comments Source yellow fever vaccine 2024 AGUSTIN GTON Arm, right upper [id number] sanofi pasteur complet ed yellow fever vaccine 08/18/24 Given 0055C-[address] [place] [address]- Daljit influenza, injectable, quadrivalent 2021 TRANSCR IBED 158 [...] dose 3 2020 Unknown, Provider 208 Pfizer, makr (PFR) complet ed SARS-COV- 2 (COVID-19 ) vaccine, mRNA, spike protein, LNP, preservat da free, 30 mcg/0.3mL dose DoD COVID Vaccine Pfizer 2020 TRANSCR IBED 208 PFIZER complet ed COVID Vaccine Pfizer 05/07/20 Given Ambulat ory Pharmac y SARS-COV-2 (COVID-19) vaccine, mRNA, spike protein, LNP, preservative free, 30 mcg/0.3mL dose 2 2020 Unknown, Provider 208 Pfizer, makr (PFR) complet ed SARS-COV- 2 (COVID-19 ) vaccine, mRNA, spike protein, LNP, preservat da free, 30 mcg/0.3mL dose DoD COVID Vaccine Pfizer 2020 TRANSCR IBED 208 PFIZER complet ed COVID Vaccine Pfizer 04/16/20 Given Ambulat ory Pharmac y SARS-COV-2 (COVID-19) vaccine, mRNA, spike protein, LNP, preservative free, 30 mcg/0.3mL dose 1 2020 Unknown, Provider 208 Pfizer, makr (PFR) complet ed SARS-COV- 2 (COVID-19 ) vaccine, mRNA, spike protein, LNP, preservat da free, 30 mcg/0.3mL dose DoD zoster vaccine, inactivated 2019 AGUSTIN GTON 187 complet ed Result Comment: Unit: Unknown Manufactu rer: () 0055C-3 [employer]- Daljit zoster recombinant 2019 ALUL, () Not Given zoster recombina nt DoD zoster vaccine, inactivated 2019 JOSHLINDY GTON 187 complet ed Result Comment: Unit: Unknown Manufactu rer: () 0055C-3 [employer] [facility]jit zoster recombinant 2019 ALUL, () Not Given zoster recombina nt DoD influenza, injectable, quadrivalent- pf 2018 150 Seqirus complet ed influenza , injectabl e, quadrival ent-pf 11/29/18 Given Ambulat ory Pharmac y typhoid Vi capsular polysaccharid e vac 2018 zzLef t Arm [id number] 101 sanofi pasteur complet ed typhoid Vi capsular polysacch aride vac 09/12/18 Given Ambulat ory Pharmac y poliovirus vaccine, inactivated 2018 zzRig ht Arm [id number] 10 sanofi pasteur complet ed polioviru s vaccine, inactivat ed 09/12/18 Given Ambulat ory Pharmac y poliovirus vaccine, inactivated 1 2018 Unknown, Provider [id number] 10 Sanofi Pasteur (PMC) complet ed polioviru s vaccine, inactivat ed DoD typhoid Vi capsular polysaccharid e vaccine 1 2018 Unknown, Provider [id number] 101 Sanofi Pasteur (PMC) complet ed typhoid Vi capsular polysacch aride vaccine DoD rabies vaccine, IM 2018 zzLef t Arm [id number] 175 sanofi pasteur complet ed rabies vaccine, IM 05/20/18 Given Ambulat ory Pharmac y rabies vaccine, for intramuscular injection RETIRED CODE 1 2018 Unknown, Provider [id number] 18 Sanofi Pasteur (PMC) complet ed rabies vaccine, for intramusc ular injection RETIRED CODE DoD rabies vaccine, IM 2018 zzLef t Arm [id number] 175 sanofi pasteur complet ed rabies vaccine, IM 05/06/18 Given Ambulat ory Pharmac y rabies vaccine, for intramuscular injection RETIRED CODE 1 2018 Unknown, Provider [id number] 18 Sanofi Pasteur (PMC) complet ed rabies vaccine, for intramusc ular injection RETIRED CODE DoD typhoid Vi capsular polysaccharid e vac [facility] [id number] 101 sanofi pasteur complet ed typhoid Vi capsular polysacch aride vac 04/18/18 Given Ambulat ory Pharmac y rabies vaccine, IM 2018 zzLef t Arm [id number] 175 sanofi pasteur complet ed rabies vaccine, IM 04/18/18 Given Ambulat ory Pharmac y Haitian Encephalitis IM 2018 [facility] [id number] 134 Valneva complet ed Haitian Encephali tis IM 04/18/18 Given Ambulat ory Pharmac y rabies vaccine, for intramuscular injection RETIRED CODE 1 2018 Unknown, Provider [id number] 18 Sanofi Pasteur (PMC) complet ed rabies vaccine, for intramusc ular injection RETIRED CODE DoD typhoid Vi capsular polysaccharid e vaccine 1 2018 Unknown, Provider [id number] 101 Sanofi Pasteur (PMC) complet ed typhoid Vi capsular polysacch aride vaccine DoD Haitian Encephalitis vaccine for intramuscular administratio n 1 2018 Unknown, Provider [id number] 134 Valneva (RADHA) complet ed Haitian Encephali tis vaccine for intramusc ular administr ation DoD tetanus-dipht h toxoids (Td) adult/adol 2018 zzLef t Arm [id number] 09 sanofi pasteur complet ed tetanus-d iphth toxoids (Td) adult/ado l 04/13/18 Given Ambulat ory Pharmac y hepatitis B adult vaccine 2018 [facility] [id number] 43 GlaxoSmithKli ne complet ed hepatitis B adult vaccine 04/13/18 Given Ambulat ory Pharmac y tetanus and diphtheria toxoids, adsorbed, preservative free, for adult use (2 Lf of tetanus toxoid and 2 Lf of diphtheria toxoid) 2018 Unknown, Provider [id number] 09 Sanofi Pasteur (PMC) complet ed tetanus and diphtheri a toxoids, adsorbed, preservat da free, for adult use (2 Lf of tetanus toxoid and 2 Lf of diphtheri a toxoid) [facility] hepatitis B vaccine, adult dosage 1 2018 [...] vaccine 12/26/15 Given Ambulat ory Pharmac y Haitian Encephalitis IM 2015 zzRig ht Arm [id number] 134 Valneva complet ed Haitian Encephali tis IM 12/26/15 Given Ambulat ory Pharmac y hepatitis A and hepatitis B vaccine 1 2015 Unknown, Provider [id number] [place] (SK) complet ed hepatitis A and hepatitis B vaccine DoD Haitian Encephalitis vaccine for intramuscular administratio n 1 2015 Unknown, Provider [id number] 134 Intercell Biomedical (INT) complet ed Haitian Encephali tis vaccine for intramusc ular administr ation DoD influenza, injectable, quadrivalent 2015 zzLef t Arm [id number] 158 ID [employer]ical complet ed influenza , injectabl e, quadrival ent 11/21/15 Given Ambulat ory Pharmac y Haitian Encephalitis IM 2015 zzRig ht Arm [id number] 134 Valneva complet ed Haitian Encephali tis IM 11/21/15 Given Ambulat ory Pharmac y hepatitis A-hepatitis B vaccine 2015 zzLef t Arm [id number] 104 GlaxoSmithKli ne complet ed hepatitis A-hepatit is B vaccine 11/21/15 Given Ambulat ory Pharmac y typhoid Vi capsular polysaccharid e vac 2015 zzRig ht Arm [id number] 101 sanofi pasteur complet ed typhoid Vi capsular polysacch aride vac 11/21/15 Given Ambulat ory Pharmac y typhoid Vi capsular polysaccharid e vaccine 1 2015 Unknown, Provider [id number] Sanofi Pasteur ([facility]) complet ed typhoid Vi capsular polysacch aride vaccine DoD hepatitis A and hepatitis B vaccine 1 2015 Unknown, Provider [id number] SmithKline (SKB) complet ed hepatitis A and hepatitis B vaccine DoD Haitian Encephalitis vaccine for intramuscular administratio n 1 2015 Unknown, Provider [id number] 134 [employer] (INT) complet ed Haitian Encephali tis vaccine for intramusc ular administr ation DoD influenza, injectable, quadrivalent, contains preservative 1 2015 Unknown, Provider [id number] (IDB) complet ed influenza , injectabl e, quadrival ent, contains preservat da DoD influenza, injectable, quadrivalent- pf 2014 150 sanofi pasteur complet ed influenza , injectabl e, quadrival ent-pf 11/23/14 Given Ambulat ory Pharmac y influenza, seasonal, injectable 2013 AGUSTIN GTON 141 complet ed Result Comment: Unit: Unknown Manufactu rer: () 0055C-3 [employer]- [facility]jit Influenza, seasonal, injectable 2013 ILDA TURNER () Not Given Influenza , seasonal, injectabl e DoD zoster vaccine live [facility] [id number] 121 Merck & Company Inc complet ed zoster vaccine live 12/16/12 Given Ambulat ory Pharmac y zoster vaccine, live 1 2012 Unknown, Provider [id number] Merck (MSD) complet ed zoster vaccine, live DoD pneumococcal 13-valent conjugate (PCV13) 2012 [id number] complet ed pneumococ jovon 13-valent conjugate (PCV13) 03/17/12 Given Ambulat ory Pharmac y pneumococcal conjugate vaccine, 13 valent 1 2012 Unknown, Provider [id number] Transcribed (TRS) complet ed pneumococ jovon [...] intranasal use 3 2010 Unknown, Provider 111 Sentilla Kulwinder. (NOV) complet ed influenza virus vaccine, live, attenuate d, for intranasa l use DoD influenza, seasonal, injectable 2009 141 Novartis Pharmaceutica ls complet ed influenza , seasonal, injectabl e 01/10/10 Given Ambulat ory Pharmac y Novel influenza-H1N 1-09, injectable 2009 zzLef t Arm [id number] 127 Novartis Pharmaceutica ls complet ed Novel influenza -M7P0-49, injectabl e 03/14/09 Given Ambulat ory Pharmac y Novel influenza-H1N 1-09, injectable 1 2009 Unknown, Provider [id number] 127 Novartis Pharmaceutica l Kulwinder. (NOV) complet ed Novel influenza -M6N3-50, injectabl e DoD influenza virus vaccine,split 2008 zzLef t Arm [id number] 15 sanofi pasteur complet ed influenza virus vaccine,s plit 01/10/09 Given Ambulat ory Pharmac y influenza virus vaccine, split virus (incl. purified surface antigen)-reti red CODE 1 2008 Unknown, Provider [id number] 15 Sanofi Pasteur ([facility]) complet ed influenza virus vaccine, split virus (incl. purified surface antigen)- retired CODE DoD tetanus, diphtheria, acellular pertu is 2007 zzRig ht Arm [id number] 115 sanofi pasteur complet ed tetanus, diphtheri a, acellular pertussis 02/03/08 Given Ambulat ory Pharmac y influenza virus vaccine,split 2007 zzLef t Arm [id number] 15 sanofi pasteur complet ed influenza virus vaccine,s plit 02/03/08 Given Ambulat ory Pharmac y influenza virus vaccine, split virus (incl. purified surface antigen)-reti red CODE 1 2007 Unknown, Provider [id number] 15 Sanofi Pasteur ([facility]) complet ed influenza virus vaccine, split virus (incl. purified surface antigen)- retired CODE DoD tetanus toxoid, reduced diphtheria toxoid, and acellular pertu is vaccine, adsorbed 1 2007 Unknown, Provider [id number] 115 Sanofi Pasteur (PMC) complet ed tetanus toxoid, reduced diphtheri a toxoid, and acellular pertussis vaccine, adsorbed DoD influenza virus vaccine,split 2005 zzLef t Arm [id number] 15 [employer] or complet ed influenza virus vaccine,s plit 02/05/06 Given Ambulat ory Pharmac y influenza virus vaccine, split virus (incl. purified surface antigen)-reti red CODE 1 2005 Unknown, Provider [id number] [facility] complet ed influenza virus vaccine, split virus (incl. purified surface antigen)- retired CODE [facility] tetanus-dipht h toxoids (Td) adult/adol 2004 zzRig ht Arm [id number] 09 sanofi pasteur complet ed tetanus-d iphth toxoids (Td) adult/ado l 01/13/05 Given Ambulat ory Pharmac y influenza virus vaccine,split 2004 zzLef t Arm [id number] 15 sanofi pasteur complet ed influenza virus vaccine,s plit 01/13/05 Given Ambulat ory Pharmac y tetanus and diphtheria toxoids, adsorbed, preservative free, for adult use (2 Lf of tetanus toxoid and 2 Lf of diphtheria toxoid) 1 2004 Unknown, Provider [id number] 09 Sanofi Pasteur ([facility]MC) complet ed tetanus and diphtheri a toxoids, adsorbed, preservat da free, for adult use (2 Lf of tetanus toxoid and 2 Lf of diphtheri a toxoid) DoD influenza virus vaccine, split virus (incl. purified surface antigen)-reti red CODE 1 2004 Unknown, Provider [id number] 15 Sanofi Pasteur ([facility]) complet ed influenza [...] ADM Date DC Date Status Disposition Source [address] [place] [address] Daljit GOINS ([facility]Fam sunny Practice Non-GME FHI1) TELE CONSULT [id number] refill request JEANETTE CLEMONS 06/[address] [place] [address] Daljit GOINS [facility]F amily Practic e Non-GME FHI1) [address] [place] [address] Daljit GOINS [facility]Fam sunny Practice Non-GME FHI1) OUTPATIENT [id number] pain in right breast ALINA FRANKS 06/23 Released w/o Limitations [address] [place] [address] Daljit BROWNB [facility])(F amily Practic e Non-GME FHI1) [facility] [employer] ([facility] Practice Non-GME FHI1) OUTPATIENT [id number] pap breast exam BASSEM, LESLIE S 07/29 Released w/o Limitations [address] [place] [address] [employer] ([facility])(F amily Practic e Non-GME FHI1) [facility] [employer] ([facility])([facility] Practice Non-GME FHI1) OUTPATIENT [id number] phy BASSEM LESLIE S 07/31 Released w/o Limitations [facility] Group [employer] ([facility])(F amily Practic e Non-GME FHI1) [address] [place] [address] Group Daljit B ([facility])([facility] Practice Non-GME FHI1) OUTPATIENT [id number] hx of migrain es/MADDEN x 4 days/me ds nt working BASSEM LESLIE S 11/20 Released w/o Limitations [address] [place] [address] Daljit B [facility])(F amily Practic e Non-GME FHI1) [address] [place] [address] [employer] [facility] Practice Non-GME FHI1) TELE CONSULT [id number] RX REFILL HEBER HENRIQUEZ 12/[address] [place] [address] Group Daljit B [facility])(F amily Practic e Non-GME FHI1) [address] [place] [address] [employer] ([facility] Practice Non-GME FHI1) OUTPATIENT [id number] flu shot AUGUSTIN SNYDER 01/13 Released w/o Limitations [address] [place] [address] [employer] [facility])(F amily Practic e Non-GME FHI1) [address] [place] [address] [employer] ([facility])([facility] Practice Non-GME FHI1) OUTPATIENT [id number] TETANUS SHOT EMILY DELATORRE 01/13 Released w/o Limitations [address] [place] [address] [employer] [facility])(F amily Practic e Non-GME FHI1) [address] [place] [address] [employer] [facility] OUTPATIENT [id number] Pap/Ashley ual exam ALISON CARDOSO 08/18 Released w/o Limitations [address] [place] [address] [employer] [facility])(F amily Practic e Non-GME FHI1) [facility] [employer] ([facility])([facility] sunny Practice Non-GME FHI1) OUTPATIENT [id number] fol on labs KEVON GONZALEZ 10/22 Released w/o Limitations [address] [place] [address] [employer] ([facility])(F amily Practic e Non-GME FHI1) [address] [place] [address] [employer] ([facility])([facility] sunny Practice Non-GME FHI1) TELE CONSULT [id number] [facility] - MAU Moreno 03/[address] [place] [address] [employer] ([facility])(F amily Practic e Non-GME FHI1) [address] [place] [address] [employer] ([facility])([facility] sunny Practice Non-GME FHI1) OUTPATIENT [id number] pap smear KATELIN DESHPANDE 08/02 Released w/o Limitations [address] [place] [address] [employer] [facility])(F amily Practic e Non-GME FHI1) [address] [place] [address] [employer] ([facility])([facility] sunny Practice Non-GME FHI1) TELE CONSULT [id number] Lab results . KATELIN DESHPANDE 08/[address] [place] [address] [employer] [facility])(F amily Practic e Non-GME FHI1) [address] [place] [address] [employer] [facility] sunny Practice Non-GME FHI1) TELE CONSULT [id number] Pap Smear CLARA Lindquist 08/[address] [place] [address] [employer] [facility])(F amily Practic e Non-GME FHI1) [address] [place] [address] [employer] ([facility])(Population Health Coach ecology) OUTPATIENT [id number] repeat pap smear ALEX LEMA 09/02 Released w/o Limitations [address] [place] [address] Group [employer] ([facility])(G ynecolo gy) [address] [place] [address] [employer] ([facility])([facility] sunny Practice Non-GME FHI1) OUTPATIENT [id number] occas muscle pain in chest KEVON GONZALEZ 09/02 Released w/o Limitations [address] [place] [address] [employer] ([facility])(F amily Practic e Non-GME FHI1) [facility] Daljit BROWNB [facility])([facility] sunny Practice Non-GME FHI1) TELE CONSULT [id number] rewrite [place] - CLARA Yeboah 09/[address] [place] [address] Group [employer] [facility])(F amily Practic e Non-GME FHI1) [address] [place] [address] [employer] ([facility])(Fam sunny Practice Non-GME FHI1) TELE CONSULT [id number] [facility] 11/[address] [place] [address] Daljit BROWNB [facility])(F amily Practic e Non-GME FHI1) [address] [place] [address] [employer] [facility])(Fam sunny Practice Non-GME FHI1) TELE CONSULT [id number] [facility] TRAVIS Arias 12/[address] [place] [address] Daljit BROWNB ([facility])(F amily Practic e Non-GME FHI1) [address] [place] [address] [employer] [facility] sunny Practice Non-GME FHI1) TELE CONSULT [id number] alterna tive [facility] SHILA Dooley 03/[address] [place] [address] Daljit BROWNB [facility])(F amily Practic e Non-GME FHI1) [facility] Daljit BROWNB [facility])(Population Health Coach ecology) TELE CONSULT [id number] estroge ALEX Perla 07/[address] [place] [address] Daljit BROWNB ([facility])(G ynecolo gy) [address] [place] [address] [employer] [facility])([facility] sunny Practice Non-GME FHI2) TELE CONSULT [id number] rewrite meds/gu SHILA Torres 08/[address] [place] [address] [employer] [facility])(F amily Practic e Non-GME FHI2) [facility] [employer] [facility])(Population Health Coach ecology) OUTPATIENT [id number] annual wwe - [id number] ALEX LEMA 08/17 Released w/o Limitations [address] [place] [address] [employer] ([facility])(G ynecolo gy) [facility] [employer] [facility])(Population Health Coach ecology) TELE CONSULT [id number] results ALEX LEMA 08/[address] [place] [address])(G ynecolo gy) [address] [place] [address])(Population Health Coach ecology) TELE CONSULT [id number] unsat pap RAHARDIK CLAY D 08/[address] [place] [address])(G ynecolo gy) [address] [place] [address])(Population Health Coach ecology) TELE CONSULT [id number] US results and new plan of care ALEX LEMA 09/[address] [place] [address])(G ynecolo gy) [address] [place] [address])(Fam sunny Practice Non-GME FHI2) TELE CONSULT [id number] rewrite prescri ritesh/ SHILA Dooley 09/[address] [place] [address])(F amily Practic e Non-GME FHI2) [address] [place] [address])(Population Health Coach ecology) TELE CONSULT [id number] Occult results call to pt- EDIN Spencer 09/[address] [place] [address])(G ynecolo gy) [address] [place] [address])(Population Health Coach ecology) OUTPATIENT [id number] repeat pap insuffi cient cells ALEX LEMA 09/25 Released w/o Limitations [address] [place] [address])(G ynecolo gy) [address] [place] [address])(Fam sunny Practice Non-GME FHI2) OUTPATIENT [id number] pussfro m under toenail s, [phone] DONAL FINE 02/26 Released w/o Limitations [address] [place] [address])(F amily Practic e Non-GME FHI2) [address] [place] [address])(Fam sunny Practice Non-GME FHI1) TELE CONSULT [id number] Rx ANICETO Blanco 02/[address] [place] [address])(F amily Practic e Non-GME FHI1) [address] [place] [address])(Sco tt BF Fam Res Tm Red) OUTPATIENT [id number] Lisa shabazz [facility] - KEVON GONZALEZ 04/30 Released w/o Limitations [facility] Daljit STEPHANIEB ([facility])(S cott [facility] Fam Res Tm Red) [facility] Daljit STEPHANIEB ([facility])(Phy sical Therapy) OUTPATIENT [id number] TENDONI TIS JUDITH MELENDEZ 05/04 Released w/o Limitations [facility] Daljit STEPHANIEB ([facility])(P hysical Therapy ) [facility] Daljit STEPHANIEB [facility])(Sco tt [facility] Fam Res Tm Red) TELE CONSULT [id number] Lisa/ needs rx ANICETO ALMANZAR 05/25 [facility] Daljit STEPHANIEB [facility])(S cott [facility] Fam Res Tm Red) [address] [place] [address] Daljit STEPHANIEB [facility])(Phy sical Therapy) OUTPATIENT [id number] JUDITH MELENDEZ 05/29 Released w/o Limitations [facility] Daljit STEPHANIEB ([facility])(P hysical Therapy ) [facility] Daljit STEPHANIEB [facility])(Sco tt [facility] Fam Res Tm Red) TELE CONSULT [id number] RX Refill - PA NINI Lao 06/11[facility] Daljit STEPHANIEB [facility])(S cott [facility] Fam Res Tm Red) [address] [place] [address] Daljit STEPHANIEB [facility])(War rior Op Med Cln Tm A Ad) OUTPATIENT [id number] recheck and refill on allergi es and meds [phone] KEVON GONZALEZ 07/26 Released w/o Limitations [facility] Daljit STEPHANIEB [facility])(W arrior Op Med Cln Tm A Ad) [address] [place] [address] Daljit STEPHANIEB [facility])(Occ upational Therapy) OUTPATIENT [id number] LATERAL EPICOND YLITIS (TENNIS ELBOW) RIGHT SOOTS, SEVERINO L 07/31 Released w/o Limitations [facility] Daljit BROWNB ([facility])(O ccupati onal Therapy ) [address] [place] [address] Daljit BROWNB [facility])(Population Health Coach ecology) OUTPATIENT [id number] ALEX Durbin 08/13 Released w/o Limitations [facility] Daljit BROWNB ([facility])(G ynecolo gy) [address] [place] [address] Daljit BRONWB ([facility])(Population Health Coach ecology) TELE CONSULT [id number] results ALEX LEMA Harika 08/[address] [place] [address] Group Daljit STEPHANIEB ([facility])(G ynecolo gy) [address] [place] [address] Daljit STEPHANIEB ([facility])(Population Health Coach ecology) OUTPATIENT [id number] walkin for bp ck ALEX LEMA 08/23 Released w/o Limitations [facility] Daljit STEPHANIEB ([facility])(G ynecolo gy) [address] [place] [address] Daljit STEPHANIEB [facility])(Occ upational Therapy) OUTPATIENT [id number] DORISSOFIA TORRI R 08/23 Released w/o Limitations [facility] Daljit STEPHANIEB ([facility])(O ccupati onal Therapy ) [address] [place] [address] Daljit STEPHANIEB ([facility])(Population Health Coach ecology) OUTPATIENT [id number] BP Check TOREYALEX 08/29 Released w/o Limitations [facility] Daljit STEPHANIEB ([facility])(G ynecolo gy) [address] [place] [address] Daljit STEPHANIEB ([facility])(Phy sical Therapy) OUTPATIENT [id number] VINI NORTON 08/29 Released w/o Limitations [address] [place] [address] Group Daljit STEPHANIEB ([facility])(P hysical Therapy ) [address] [place] [address] Daljit STEPHANIEB ([facility])(War rior Op Med Cln Tm A Ad) OUTPATIENT [id number] hyperte KEVON Marquez 09/04 Released w/o Limitations [address] [place] [address] Group Daljit STEPHANIEB ([facility])(W arrior Op Med Cln Tm A Ad) [address] [place] [address] Daljit STEPHANIEB [facility])(Car diology (MTF)) OUTPATIENT [id number] Blood Pressur e Isolate d Elevate d LIPOFFJOMAR I 09/05 Released w/o Limitations [address] [place] [address] Group Daljit STEPHANIEB ([facility])(C ardiolo gy (MTF)) [address] [place] [address] Daljit STEPHANIEB ([facility])(War rior Op Med Cln Tm A Ad) TELE CONSULT [id number] PCM: SHAMIKA Gonzalez; stress test JEANETTE CLEMONS 09/[address] [place] [address] Daljit BROWNB ([facility])(W arrior Op Med Cln Tm A Ad) [facility] Daljit BROWNB ([facility])(War rior Op Med Cln Tm A Ad) OUTPATIENT [id number] HTN ISSUES LISA KEVON L 09/06 Released w/o Limitations [facility]W arrior Op Med Cln Tm A Ad) [address] [place] [address] Daljit [facility])(Car diology (MTF)) OUTPATIENT [id number] EKG LIPOFF, JOMAR I 09/10 Released w/o Limitations [facility] Daljit [facility])(C ardiolo gy (MTF)) [address] [place] [address] Daljit [facility])(War rior Op Med Cln Tm A Ad) TELE CONSULT [id number] call back/TRACEY Jackson 09/[address] [place] [address])(W arrior Op Med Cln Tm A Ad) [address] [place] [address])(War rior Op Med Cln Tm A Ad) OUTPATIENT [id number] f/u HTN KEVON GONZALEZ 09/28 Released w/o Limitations [address] [place] [address] Group Daljit [facility] ([facility])(W arrior Op Med Cln Tm A Ad) [address] [place] [address] Daljit [facility])(Phy sical Therapy) OUTPATIENT [id number] VINI NORTON 10/05 Released w/o Limitations [address] [place] [address] [facility]P [facility]ys[facility] ) [address] [place] [address] Daljit [facility])(Car diology ([place])) OUTPATIENT [id number] Blood Pressur e Isolate d Elevate d LIPOFF, JOMAR I 10/08 Released w/o Limitations [address] [place] [address] Group Daljit BROWN ([facility])(C ardiolo gy ([place])) [address] [place] [address] Daljit [facility])(Phy sical Therapy) OUTPATIENT [id number] VINI NORTON 10/09 Released w/o Limitations [address] [place] [address] [facility])(P hysical Therapy ) [address] [place] [address])(War rior Op Med Cln Tm A Ad) TELE CONSULT [id number] TRACEY Velázquez 10/[address] [place], [place] [address]B ([facility])(W arrior Op Med Cln Tm A Ad) [address] [place] [address] Daljit BROWN ([facility])(Phy sical Therapy) TELE CONSULT [id number] Discuss current plan of care ALINA DRISCOLL aHrika 10/[address] [place] [address] Daljit [facility])(P hysical Therapy ) [address] [place] [address] Daljit [facility])(War rior Op Med Cln Tm A Ad) OUTPATIENT [id number] F/U on Cervica l MRI results KEVON GONZALEZ 10/22 Released w/o Limitations [address] [place] [address] Daljit [facility])(W arrior Op Med Cln Tm A Ad) [address] [place] [address] Daljit [facility])(War rior Op Med Cln Tm A Ad) OUTPATIENT [id number] f/u barrium test - KEVON GONZALEZ 11/16 Released w/o Limitations [address] [place] [address] Daljit STEPHANIEFrancis ([facility])(W arrior Op Med Cln Tm A Ad) [address] [place] [address] Daljit [facility])(Fam sunny Med Tm B Non-AD BCC) TELE CONSULT [id number] notes request - MARY ALICE Soto 11/[address] [place] [address] Daljit STEPHANIEFrancis ([facility])(F amily Med Tm B Non-AD BCC) [address] [place] [address] [facility]Fam sunny Med Tm B Non-AD BCC) OUTPATIENT [id number] fol hand and stomach LAMONTE ACOSTA 01/10 Released w/o Limitations [address] [place] [address] Daljit STEPHANIEB [facility])(F amily Med Tm B Non-AD BCC) [address] [place] [address] Daljit [facility])(Fam sunny Med Tm B Non-AD BCC) OUTPATIENT [id number] ongoing headach e follow up [id number] LAMONTE ACOSTA 07/09 Released w/o Limitations [address] [place] [address] Daljit STEPHANIEB [facility])(F amily Med Tm B Non-AD BCC) [address] [place] [address] Daljit [facility])(Fam usnny Med Tm B Non-AD BCC) TELE CONSULT [id number] Inform of Radiolo gy results MIRANDA OLVERA 07/[address] [place] [address] Daljit B [facility])(F amily Med Tm B Non-AD BCC) [address] [place] [address] Daljit [facility])(Population Health Coach ecology) OUTPATIENT [id number] annual exam [id number] ALEX LEMA 08/21 Released w/o Limitations [address] [place] [address] Daljit [facility] ([facility])(G ynecolo gy) [address] [place] [address] Daljit [facility])(Population Health Coach ecology) TELE CONSULT [id number] results ALEX LEMA R 08/[address] [place] [address] Daljit [facility])(G ynecolo gy) [address] [place] [address])(Fam sunny Med Tm B Non-AD BCC) TELE CONSULT [id number] concern s with taking 600mg ibruprf en/dent ist ordered pt already taking celebre x NORMA MERCADO 10/[address] [place] [address] Daljit [facility])(F amily Med Tm B Non-AD BCC) [address] [place] [address] Daljit [facility])(Fam sunny Med Tm B Non-AD BCC) TELE CONSULT [id number] cleeary pt wants labs order for vit-d / [id number] NORMA MERCADO 12/[address] [place] [address] Daljit BROWN ([facility])(F amily Med Tm B Non-AD BCC) [address] [place] [address] Daljit [facility])(Fam sunny Med Tm B Non-AD BCC) OUTPATIENT [id number] painful lumps under armpit - [id number] LAMONTE ACOSTA 12/20 Released w/o Limitations [address] [place] [address] Daljit [facility] ([facility])(F amily Med Tm B Non-AD BCC) [address] [place] [address] Daljit [facility])(Ob/ Population Health Coach) TELE CONSULT [id number] vit D results ALEX LEMA 12/[address] [place] [address] Daljit [facility])(O b/Population Health Coach) [address] [place] [address] Daljit [facility])(Fam sunny Med Tm B Non-AD BCC) TELE CONSULT [id number] Meds refill/ [place]/ fxs NORMA MERCADO 05/[address] [place] [address] Daljit [facility])(F amily Med Tm B Non-AD BCC) [address] [place] [address] Daljit [facility])(War rior Op Med Cln Tm A Ad) OUTPATIENT [id number] f/u meds... [id number] LAMONTE ACOSTA 09/08 Released w/o Limitations [employer] ([facility])(W arrior Op Med Cln Tm A Ad) [address] [place] [address] Daljit BROWNB ([facility])(Population Health Coach ecology) OUTPATIENT [id number] annual wwe - [id number] ALEX LEMA 09/12 Released w/o Limitations [facility] Daljit BROWNB ([facility])(G ynecolo gy) [address] [place] [address] Daljit BROWNB [facility])(Population Health Coach ecology) TELE CONSULT [id number] Discuss Bone density results JULITO ALARCON José Miguel 09/16 [facility] Daljit BROWNB ([facility])(G ynecolo gy) [address] [place] [address] Daljit BROWNB ([facility])(Population Health Coach ecology) TELE CONSULT [id number] results ALEX LEMA 09/[address] [place] [address] Daljit BROWNB ([facility])(G ynecolo gy) [address] [place] [address] Daljit BROWNB ([facility])(Population Health Coach ecology) TELE CONSULT [id number] f/u ALEX LEMA 10/[address] [place] [address] Daljit BROWNB ([facility])(G ynecolo gy) [id number] ELIZABET DWO 08/18 Discharge Disposition: Home or Self Care 0055C-[address] [facility] Procedures Combined list of: 1) Procedures from Department of Veterans Affairs facilities going back up to thelast 18 months, not all VA non-surgical procedures are included; 2) All procedures from the Department of Defense facilities. Procedure Procedure Type Code Date Perfomer Comments Sourc e No data available for this section Ambulatory Pharmacy INSUFFLATION OF FALLOPIAN TUBE 1988 DoD LAPAROSCOPY 1988 DoD SCREENING PAPANICOLAOU SMEAR; OBTAINING, PREPARING AND [...] 0.5 ML DOSAGE, FOR INTRAMUSCULAR USE 2008 [facility] THERAPEUTIC PROCEDURE, 1 OR MORE [...] CERVICAL OR VAGINAL SMEAR TO LABORATORY 2008 [facility] SPLINT, PREFABRICATED, ELBOW 2008 DoD TELE ASSESS [...] 24 HR/SOON APT;5-10 MIN MED DIS 2007 [facility] SCREENING PAPANICOLAOU SMEAR; OBTAINING, PREPARING AND CONVEYANCE OF CERVICAL OR VAGINAL SMEAR TO LABORATORY 2007 [facility] ELECTROCARDIOGRAM, ROUTINE ECG WITH AT LEAST 12 LEADS; WITH INTERPRETATION AND REPORT 2006 [facility] SCREENING PAPANICOLAOU SMEAR; OBTAINING, PREPARING AND CONVEYANCE OF CERVICAL OR VAGINAL SMEAR TO LABORATORY 2006 [facility] TETANUS AND DIPHTHERIA TOXOIDS (TD) ADSORBED WHEN ADMINISTERED TO INDIVIDUALS 7 YEARS OR OLDER, FOR INTRAMUSCULAR USE 2004 [facility] INFLUENZA VIRUS VACCINE, TRIVALENT (IIV3), SPLIT VIRUS, 0.5 ML DOSAGE, FOR INTRAMUSCULAR USE 2004 [facility] ELECTROCARDIOGRAM, ROUTINE ECG WITH AT LEAST 12 LEADS; WITH INTERPRETATION AND REPORT 2003 [facility] PHYS/OTH QUALIFIED HEALTH AUTO DESIGN DETAILER QUALIFIED,EDUCATION,TR BANG,LICENSURE/REGULATI ON (WHEN APPLICABLE) EDUC SER RENDERED TO PATS IN A GRP SETTING (EG,,OBESITY,O R DIABETIC INSTRUCT) 2002 DoD SUPP &MATERIAL (EXCEPT SPECTACLE),PROVID,THE PHYS/OTH QUALIFIED HEALTH AUTO DESIGN DETAILER OVER &ABOVE THOSE USUALLY INCLD W THE OFFICE VISIT/OTH SER RENDERED (LIST DRUG,TRAYS,SUPP,OR MATERIAL PROVID) 2002 DoD APPLICATION OF A MODALITY TO 1 OR MORE AREAS; IONTOPHORESIS, EACH 15 MINUTES 2002 DoD SUPP &MATERIAL (EXCEPT SPECTACLE),PROVID,THE PHYS/OTH QUALIFIED HEALTH AUTO DESIGN DETAILER OVER &ABOVE THOSE USUALLY INCLD W THE OFFICE VISIT/OTH SER RENDERED (LIST DRUG,TRAYS,SUPP,OR MATERIAL PROVID) 2002 DoD APPLICATION OF A MODALITY TO 1 OR MORE AREAS; IONTOPHORESIS, EACH 15 MINUTES 2002 DoD APPLICATION OF A MODALITY TO 1 OR MORE AREAS; ULTRASOUND, EACH 15 MINUTES 2002 DoD SUPP &MATERIAL (EXCEPT SPECTACLE),PROVID,THE PHYS/OTH QUALIFIED HEALTH AUTO DESIGN DETAILER OVER &ABOVE THOSE USUALLY INCLD W THE OFFICE VISIT/OTH SER RENDERED (LIST DRUG,TRAYS,SUPP,OR MATERIAL PROVID) 2002 DoD SUPP &MATERIAL (EXCEPT SPECTACLE),PROVID,THE PHYS/OTH QUALIFIED HEALTH AUTO DESIGN DETAILER OVER &ABOVE THOSE USUALLY INCLD W THE OFFICE VISIT/OTH SER RENDERED (LIST DRUG,TRAYS,SUPP,OR MATERIAL PROVID) 2002 [facility] SCREENING PAPANICOLAOU SMEAR; OBTAINING, PREPARING AND CONVEYANCE OF CERVICAL OR VAGINAL SMEAR TO LABORATORY 2002 [facility] EDUCATIONAL SUPPLIES, SUCH BOOKS, TAPES, AND PAMPHLETS, FOR THE PATIENT'S EDUCATION AT COST TO PHYSICIAN OR OTHER QUALIFIED HEALTH AUTO DESIGN DETAILER 2002 [facility] WRIST HAND ORTHOSIS, WRIST EXTENSION CONTROL COCK-UP, NON MOLDED, PREFABRICATED, [id number] 2002 [facility] OTHER EXCISION OR AVULSION OF CRANIAL AND PERIPHERAL NERVES 1992 [facility] ONYCHOPLASTY 1992 [facility] Screening papanicolaou smear; obtaining, preparing and conveyance of cervical or vaginal smear to laboratory 2009 ALEX LEMA [facility] Non-Physician Phone Call To Patient/Provider Brief (5-10min) Non-Physician Phone Call To Patient/Provider Brief (5-10min) [id number] 2009 MIRANDA OLVERA [facility] Influenza Split Virus Vacc Age 3+ Years IM Preservative Free 2008 LAMONTE ACOSTA [facility] Exercises A isted Exercises For ROM Exercises Assisted Exercises For ROM 98278 2008 ALINA DRISCOLL 10 min instruction DoD Physical Medicine Physical Therapy Re-Evaluation Physical Medicine Physical Therapy Re-Evaluation 21089 2008 VINI NORTON [facility] Cardiac Stre Test Interpretation And Report Only Cardiac Stress Test Interpretation And Report Only 37776 2008 MAYA CHAVEZ [facility] Physical Medicine Physical Therapy Evaluation Physical Medicine Physical Therapy Evaluation 59695 2008 VINI NORTON [facility] ECG Interpretation And Report Only ECG Interpretation And Report Only 47429 2008 KERRI BECKER [facility] Non-Physician Phone Call To Patient/Provider Brief (5-10min) Non-Physician Phone Call To Patient/Provider Brief (5-10min) 86106 2008 JEANETTE CLEMONS [facility] Cardiac Stre Test, Phys. Supervision, Interp. And Report Cardiac Stress Test, Phys. Supervision, Interp. And Report 44874 2008 MEKA NEAL [facility] Physical Medicine Physical Therapy Re-Evaluation Physical Medicine Physical Therapy Re-Evaluation 51499 2008 VINI NORTON Phys Therapy Education Self Care Training - Per 15 Minutes Phys Therapy Education Self Care Training - Per 15 Minutes 86838 2008 TORRI ZAMUDIO Screening papanicolaou smear; obtaining, preparing and conveyance of cervical or vaginal smear to laboratory 2008 ALEX LEMA Splint, prefabricated, elbow 2008 SEVERINO ORTIZ Splint, prefabricated, wrist or ankle 2008 SEVERINO ORTIZ Occupational Therapy Evaluation Occupational Therapy Evaluation 60095 2008 SEVERINO ORTIZ Non-Physician Phone Call To Patient/Provider Brief (5-10min) Non-Physician Phone Call To Patient/Provider Brief (5-10min) 17319 2008 NINI JOE Physical Medicine Physical Therapy Re-Evaluation Physical Medicine Physical Therapy Re-Evaluation 45632 2008 JUDITH MELENDEZ Phys Therapy Education Self Care Training - Per 15 Minutes Phys Therapy Education Self Care Training - Per 15 Minutes 86958 2008 JUDITH MELENDEZ Physical Medicine Physical Therapy Evaluation Physical Medicine Physical Therapy Evaluation 19525 2008 JUDITH MELENDEZ Screening papanicolaou smear; obtaining, preparing and conveyance of cervical or vaginal smear to laboratory 2007 ALEX LEMA Non-Physician Phone Call To Patient/Provider Brief (5-10min) Non-Physician Phone Call To Patient/Provider Brief (5-10min) 10373 2007 SHILA MORALES Screening papanicolaou smear; obtaining, preparing and conveyance of cervical or vaginal smear to laboratory 2007 ALEX LEMA Non-Physician Phone Call To Patient/Provider Brief (5-10min) Non-Physician Phone Call To Patient/Provider Brief (5-10min) 42183 2007 SHILA MORALES Electrocardiogram Electrocardiogram 47647 09/02 KEVON GONZALEZ Screening papanicolaou smear; obtaining, preparing and conveyance of cervical or vaginal smear to laboratory 2006 NINI JOE [facility] Influenza Split Virus Vaccine Age 3+ Years Intramuscular 2004 AUGUSTIN SNYDER [facility] Immunization Administration One Vaccine Immunization Administration One Vaccine 25294 2004 EMILY KENT [facility] Td Vaccine Seven Years Of Age And Above Td Vaccine Seven Years Of Age And Above 89423 2004 EMILY KENT [facility] Social History Combined list of available smoking, tobacco, and other social history from Department of Defense and Veterans Affairs facilities. Social History Type Response Date Comment [facility] e Sex Representation Female (finding) 04/16/2022 Unknown Organization Sexual Orientation [facility] Pharmacy Gender identity Ambulator y Pharmacy This section is an empty social history section. [facility] Assessment and Plan Combined list of future care activities from Department of Defense and Veterans Affairs facilities (e.g., assessment and plan notes, appointments, orders, and referrals). Additional future care activities may be listed in the Plan of Care section. Result Assessment and Plan Date Source Assessment and Plan Extracted from:Title : Imms Note Author: MYAA ARMSTRONG, EMT Date: 08/18/24 SCREENING CHECKLIST FOR CONTRAINDICATIONS TO VACCINES FOR A DULTS (Model based on DD Form 311, April 2024) Patient presents to clinic to receive vaccines recommended per ACIP/CDC guideline standing orders (that are reviewed and approved by [facility]). Patient read the following screening information and truthfully answered all of the required questions. Questions answered YES required further explanation, but are not necessarily a contraindication to vaccination. There were no contraindications to vaccines provided in clinic today. Routine Immunization Screening Questionnaire: Adult (using DD Form 3111, April 2024 Model) 1. Are you sick today?No 2. Have you ever had a serious reaction after receiving a vaccination?No 3. Do you have allergies to medication, food, a vaccine component, or latex?Yes Nuts 4. Have you had a seizure or brain or other nervous system problem?No 5. Have you had a health problem involving heart, lung (e.g. asthma), kidney, or metabolic disease (e.g., diabetes), anemia, or other blood disorder?No 6. Do you, or a close family member, have cancer, leukemia, HIV/AIDS, or any other immune system problems?No 7. In the past 3 months, have you taken medications that weaken your immune system, such as prednisone or other steroids; anticancer drugs; biologic drugs for autoimmune diseases such as rheumatoid arthritis, Crohn's disease, or psoriasis or had radiation treatments?No 8. During the past year, have you received a transfusion of blood or blood products, or been given immune (gamma) globulin, or an anti-viral drug? 10. Have you ever passed out (vasovagal syncope) during or after a previous immunization or blood draw?No 11. Have you received any vaccinations in the past 4 weeks?No 12. Are you or is there a chance that you could become in the next month?Not Applicable More details of the vaccination administered can be found in the patient s Immunization History under the Immunizations tab. Diagnosis: Encounter for immunization Comment: Other status: yellow fever vaccine; 0.5 mL, SubCutaneous, Injection, Vaccine, First Dose: 08/18/2024 13:20:00 CDT, 08/18/2024 13:20:00 CDT (Completed) by ELIZABET ARAMBULA MD Imadm Prq Id Subq/Im Njxs 1 Vaccine [id number]; 08/18/2024 13:20:00 CDT, Encounter for immunization (Completed) by ELIZABET ARAMBULA MD End of Orders 10/16/2024 [id number] Functional Status Combined list of recent functional and cognitive assessments recorded at [facility] [employer] [facility] ([facility]VA Functional Harris Measurement (FIM) Scale: 1 = Total Assistance (Subject = 0% +), 2 = Maximal Assistance (Subject = 25% +), 3 = Moderate Assistance (Subject = 50% +), 4 = Minimal Assistance (Subject = 75% +), 5 = Supervision, 6 = Modified Harris (Device), 7 = Complete Harris (Timely, Safely). Assessment Date/Time Source Assessment Type Assessment Skill Assessment Score Assessment Details No data available for this section
--- OUTSIDE RECORDS SUMMARY | 2024-10-16 13:01 | XMS_ITS | Clinical Summary ---
Author Organization [facility] Address [address] [place] [id number] Care Team Providers Care Cloth Dye Range Operator Name Role Phone Unavailable Primary Care [...] 1 - Tdap) 1973 Mammogram Screening 1994 Pneumococcal Vaccine: 50+ Ye ars (1 of 1 - PCV) 2004 Zoster Vaccines (1 of 2) 2004 Dexa Scan (General) 10/04/2019 COVID-19 Vaccine ( - 2023-2 5 [...]
--- OUTSIDE RECORDS SUMMARY | 2024-10-16 13:01 | XMS_ITS | Clinical Summary ---
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 Gender Identity Not on file Sexual Orientation [...] P M CDT Height 173 cm (5' 8.11) 06/21/2023 1:02 PM CDT Body Mass Index 24.34 06/21/2023 1:02 PM CDT Plan of Treatment Health Maintenance Due Date Last Done Comments Breast Cancer Screening-Mammogram 1954 Colon Cancer Screening-Colonoscopy 1954 Depression Screening 1954 Fall Risk Assessment 1954 Hepatitis C Screening 1954 Osteoporosis Screening-Bone Density Scan 1954 Hepatitis B Screening 1972 Zoster Vaccine (1 of 2) 2004 Pneumococcal vaccine 65+ (2 of 2 - PCV20 or PCV21) 03/17/2013 03/17/2012 Well Visit 65+ 10/04/2019 DTaP/Tdap/Td Vaccine (2 - Td or Tdap) 09/21/2022 09/21/2012 Influenza Vaccine (#1) 2024 , 10/29/2017, 12/02/2016, Additional history exists Insurance FOR LIFE Member Subscriber Plan / Payer (Ef fective 2018-Present) Name:Sally Seymour Relation to Subscriber:Self Name:Sally Seymour Payer ID:[id number] (NAIC) Group ID:Not on file Type:[employer] Address: [facility] [address] [place] [address] MEDICARE MEDICARE FOR LIFE MEDICARE FOR LIFE Care Teams Storage Manager Relationship Specialty Start Date End Date Gorge Siddiqui MD [address] [place] [address] PCP - General 12/10/16
== END 2024-10-16 12:56 | disposition home or self-care (01) ==
LOC: ANHAUDASC 12:56
PROVIDERS: PCP Family Medicine; Visit Provider Family Medicine
DX: H90.3 Sensorineural hearing loss, bilateral (principal); H93.13 Tinnitus, bilateral; Z97.4 Presence of external hearing-aid
CPT/HCPCS: 92557; 92567

== ENCOUNTER 2025-01-12 11:24 | Outpatient (CLI) | payer MEDICARE, OTHER, SELFPAY ==
--- NOTE | ~2025-01-12 | XR_ITS ---
XR lumbar spine 2-3V Indication: M54.50 - Low back pain, unspecified, chronic Comparison: None Findings: The vertebral heights are intact. No fracture or subluxation. The disc heights are intact. Soft tissues unremarkable Impression: No acute abnormality. Reviewed, dictated and finalized at location P. STORAGE SPECIALIST Impression: No acute abnormality.
--- NOTE | ~2025-01-12 | XR_ITS ---
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 Findings: No acute fracture or malalignment. Arthroplasty intact Soft tissues unremarkable. Impression: No acute fracture or malalignment. Reviewed, dictated and finalized at location P. TICKET CLERK Impression: No acute fracture or malalignment.
--- OUTSIDE RECORDS SUMMARY | 2025-01-12 11:28 | XMS_ITS | Clinical Summary ---
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 Gender Identity Not on file Sexual Orientation [...] Tdap) 09/21/2022 09/21/2012 Influenza Vaccine (#1) 2024 0, 10/29/2017, 12/02/2016, Additional history exists Insurance [employer] LIFE MEDICARE Member Subscriber Plan / Payer (Ef fective 2019-Present) Name:Sally Seymour Member ID:[id number] Relation to Subscriber:Self Name:Sally Seymour Subscriber ID:[id number] Payer ID:[id number] Group ID:Not on file Type:MEDICARE TRADITIONAL Address: [address] [address] MEDICARE Member Subscriber Plan / Payer (Ef fective 2019-Present) Name:Sally Seymour Member ID:[id number] Relation to Subscriber:Self Name:Sally Seymour Subscriber ID:[id number] Payer ID:[id number] Group ID:Not on file Type:MEDICARE TRADITIONAL Address: [address] [phone] FOR LIFE MEDICARE FOR LIFE Care Teams Cigarette Machines Mechanic Relationship Specialty Start Date End Date Gorge Siddiqui MD [address] [place] [address] PCP - General 12/10/16
--- OUTSIDE RECORDS SUMMARY | 2025-01-12 11:28 | XMS_ITS | Clinical Summary ---
Author Organization [facility] Address [address] [place] [address] Care Team Providers Care Calibration Checker Name Role Phone Unavailable Primary Care Provider [...] Scan (General) 10/04/2019 COVID-19 Vaccine ( - 2024-2 6 season) 2024 Influenza Adult (#1) 2024 RSV Immunization or 60+ Years (1 - 1-dose 75+ series) 2029 Hepatitis A Vaccines Aged Out No long er eligible based on patient's age to complete this topic Meningococcal B Vaccine Aged Out No l onger eligible based on patient's age to complete this topic Meningococcal Vaccine Aged Out No mario tamica eligible based on patient's age to complete this topic RSV Immunizations Under 20 Months Aged Out No longer eligible based on patient's age to complete this topic
== END 2025-01-12 11:25 | disposition home or self-care (01) ==
PROVIDERS: PCP Family Medicine
DX: M25.552 Pain in left hip (principal); M54.50 Low back pain, unspecified; Z96.642 Presence of left artificial hip joint
CPT/HCPCS: 72100; 73502